=== PATIENT | female | born 1935 | race Caucasian/White ===

== ENCOUNTER 2024-01-19 05:06 | Emergency (ER) | payer MEDICARE, SELFPAY ==
--- NOTE | ~2024-01-19 | CT_ITS ---
CT head without contrast Indication: Head injury Technique: Serial scans were obtained through the brain without the administration of contrast. Dose reduction technique was used on this scan by utilizing automated exposure control and iterative recon struction technique. The dose-length product (DLP) was 681.00 mGy-cm. Findings: There is no evidence of intracranial hemorrhage, mass lesion, or acute infarct. The ventri cles and subarachnoid spaces are dilated, consistent with mild atrophy. 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 There is no evidence of edema, mass effect or midline shift. Right max illary sinus disease present. The remaining visualized paranasal sinuses and mastoid air cells are cl ear. Impression: No intracranial hemorrhage, mass, or acute infarct. Atrophy and chronic white matter changes, as above. Reviewed, dictated and finalized at [facility]. Impression: No intracranial hemorrhage, mass, or acute infarct. Atrophy and chronic white matter changes, as above.
[2024-01-19 05:08] VITALS: BP 149/94; PULSE 107; RESP 14; TEMP 36.8; O2SAT 92
--- NOTE | 2024-01-19 05:17 | ED.FALL ---
HPI - Fall General Chief Complaint: Fall Stated Complaint: fall Time Seen by Provider: 01/19/24 05:10 History of Present Illness HPI Narrative: Patient is an 88-year-old female who presents to the emergency department this morning from [facility] due to concern for slipping out of bed. EMS report states that the fpc informed them that the patient slid out of bed and hit her head on the side of the wheelchair. Patient is denying these symptoms stating that she did not hit her head. She is currently denying any symptoms including any headaches, dizziness, blurry vision, focal weakness, numbness and tingling, neck pain. Patient is requesting to go and states that she does not need to be here. Denies any blood thinner use. No additional symptoms or concerns at this time. Related Data Home Medications Medication Instructions Recorded Confirmed No Home Medications 01/15/24 01/15/24 Review of Systems Review of Systems: All systems are reviewed and are negative unless stated otherwise in the HPI. [facility] Social History Social History Smoking status: Never smoker Exam Narrative: General: Alert, awake, afebrile, in no acute distress. HEENT: PERRL, no rhinorrhea, no post nasal drip, oropharynx clear. Cardiovascular: Regular rate and rhythm, no murmurs, rubs or gallops, no peripheral edema. Respiratory: Clear to auscultation bilaterally, no tachypnea, no wheezing, no rhonchi, no rubs, no respiratory distress. Abdomen: Soft, nontender, nondistended, no rebound, no guarding, no peritoneal signs. Musculoskeletal: No joint swelling or deformity, normal muscle tone. Back: BS No midline tenderness to palpation, thoracic, or lumbar spine positive Skin: No rashes or petechia, no signs of infection. Neurological: Alert and oriented to person, place, and time. Follows all commands. No focal deficits, speech is clear and fluent. Course Vital Signs Vital signs: Vital Signs Temperature 98.2 F 01/19/24 05:08 Pulse Rate 107 H 01/19/24 05:08 Respiratory Rate 14 01/19/24 05:08 Blood Pressure 149/94 H 01/19/24 05:08 Pulse Oximetry 92 01/19/24 05:08 Oxygen Delivery Room Air 01/19/24 05:08 Temperature 98.2 F 01/19/24 05:08 Pulse Rate 107 H 01/19/24 05:08 Respiratory Rate 14 01/19/24 05:08 Blood Pressure 149/94 H 01/19/24 05:08 Pulse Oximetry 92 01/19/24 05:08 Oxygen Delivery Room Air 01/19/24 05:08 MDM - Fall MDM Narrative Medical decision making narrative: The patient was evaluated by myself in the emergency department. History is obtained from patient who is an independent historian along with EMS report and physical exam was performed. External medical records were reviewed at this time. Imaging studies obtained included CT brain without IV contrast which was independently interpreted by me revealing no acute intracranial process, which is pending final radiology interpretation. Differential diagnosis considerations include fractures, dislocations, intracranial hemorrhage. Comorbidities impacting this visit include none. I have evaluated and discussed social determinants of health with the patient that could potentially impact subsequent diagnosis and treatment plans. On repeat assessment of the patient, reevaluation revealed that the patient is doing well and is in no acute distress. Patient symptoms have remained stable since she arrived to our emergency department. Repeat vital signs were all reviewed and noted to be stable. Differential diagnosis and treatment plan were discussed with the patient at bedside. Patient agrees with discussion and after shared medical decision making agrees with discharge. All questions were answered to the patient's satisfaction. Patient will follow up with her PCP in 3-5 days. Patient was provided with strict return precautions and instructed to return to the emergency depart
--- NOTE | 2024-01-19 07:14 | PC.NURSE ---
This RN tried calling [facility] three times with no success. pt to be transported back via EMS.
[2024-01-19 07:29] VITALS: BP 144/87; PULSE 89; RESP 19; O2SAT 96
== END 2024-01-19 08:29 ==
PROVIDERS: Emergency Provider Emergency Medicine; PCP Family Medicine
DX: S09.90XA Unspecified injury of head, initial encounter (principal); W06.XXXA Fall from bed, initial encounter
CPT/HCPCS: 70450; 99284

== ENCOUNTER 2024-10-24 22:22 | Emergency (ER) | payer MEDICARE, SELFPAY ==
--- NOTE | ~2024-10-24 | CT_ITS ---
History: Bilateral lower extremity paresthesias and subjective slurred speech PROCEDURE: CT lumbar spine without intravenous contrast. COMPARISON: None TECHNIQUE: Multiple contiguous axial images of the lumbar spine were performed without the administration of int ravenous contrast. DLP: 239 mGy-cm FINDINGS: 14 degrees of levoscoliotic curvature of the lumbar spine is identified. Degenerative disease is identified at the level of L1/L2 with osteophyte formation, disc space narrow ing, endplate changes and facet arthropathy. Grade 1 anterolisthesis of L4 onto L5. Remainder of the intervertebral disc spaces are unremarkable. No acute compression fractures are present. No soft tissue abnormality is noted. Impression: Degenerative disease with altered alignment, without acute compression fracture, as detailed above. Reviewed, dictated and finalized at location A. Impression: Degenerative disease with altered alignment, without acute compression fracture , as detailed above.
--- NOTE | ~2024-10-24 | CT_ITS ---
History: Fall PROCEDURE: CT head without contrast. COMPARISON: 01/19/2024 TECHNIQUE: Axial imaging of the head performed from the skull base to the vertex without IV contrast. Sagittal a nd coronal reformations obtained. DLP: 681 mGy-cm FINDINGS: The ventricles are enlarged. The dilatation of the ventricles is proportional to the degree of sulcal prominence, not uncommon in the senescent brain. Decreased attenuation is identified within the periventricular white matter, likely secondary to micr ovascular ischemic disease, in a patient of this age. There is no mass, mass effect or midline shift. There is no abnormal extra-axial fluid collection or intracranial hemorrhage. Dense opacification of the maxillary sinus with possible heterotopic ossification in the base of the maxillary sinus. Remaining paranasal sinuses are clear. The mastoid air cells are well aerated. No acute displaced fractures within the overlying cranium. Impression: No acute intracranial hemorrhage or suspicious mass effect. Reviewed, dictated and finalized at location A. Impression: No acute intracranial hemorrhage or suspicious mass effect.
--- NOTE | ~2024-10-24 | XR_ITS ---
HISTORY: fell out of bed/NO HIP OR PELVIS COMPLAINTS COMPARISON: None TECHNIQUE: 2 views of the pelvis were performed FINDINGS: Diffuse bony demineralization is noted. Increased attenuation within the stoma consistent with acute blood products, as the plain film evalua tion of the pelvis was performed long before the contrast enhanced CT. Significant degenerative disease within the visualized portion of the lumbar spine. Superior lateral joint space narrowing and sclerosis is identified within the bilateral femoral aceta bular joint spaces. Joint space narrowing and sclerosis is present within the pubic symphysis. No acute fracture or dislocation is appreciated. Vascular calcifications are also noted. IMPRESSION: Increased attenuation within the stoma consistent with acute blood products as the plain film evaluation of the pelvis was performed hours before the contrast enhanced CT. Degenerative disease, without acute fracture or dislocation, as detailed above. Reviewed, dictated and finalized at location A.
--- NOTE | ~2024-10-24 | CT_ITS ---
History: Fall PROCEDURE: CT cervical spine without intravenous contrast. COMPARISON: None TECHNIQUE: Multiple contiguous axial images of the cervical spine were performed without the administration of i ntravenous contrast. DLP: 115 mGy-cm FINDINGS: Significant kyphosis is identified. In addition, severe degenerative disease is identified at the level of C1/C2 with bony erosion and cy stic resorption. Ankylosis of multiple levels are also detected as well as osteophyte formation, disc space narrowing and endplate changes. No acute displaced fractures are present. Biapical scarring, right greater than left. No soft tissue abnormality is appreciated. The airway is patent. Impression: Severe degenerative disease, as detailed above, without acute displaced fracture. Reviewed, dictated and finalized at location A. Impression: Severe degenerative disease, as detailed above, without acute displaced fractur e.
--- NOTE | ~2024-10-24 | CT_ITS ---
The CLINICAL INDICATION: Bleeding from stoma COMPARISON: None. TECHNIQUE: Multiple contiguous axial images of the abdomen and pelvis were performed following the ad ministration of with 100 mL Omnipaque-350 intravenous contrast The dose-length product (DLP) was 288.99 mGy-cm. Automated exposure control and iterative reconstruction technique were employed. Examination is markedly limited by a significant amount of motion artifact rendering evaluation of th e upper abdomen limited. FINDINGS/OBSERVATIONS: Visualized lower thorax: Coarse interstitial lung markings detected within the bilateral lung bases, likely chronic. The heart is enlarged, without pericardial effusion. Liver: The liver demonstrates homogeneous enhancement and is not enlarged. Gallbladder and biliary system: What is thought to represent the gallbladder is only minimally distended, and otherwise unremarkable. Pancreas: Limited evaluation secondary to motion artifact. Spleen: The spleen enhances homogeneously and is not enlarged. Kidneys: The bilateral kidneys enhance symmetrically without hydronephrosis or renal calculi. Adrenal glands: Unremarkable. Gastrointestinal tract: Stoma within the left lower abdomen. Although not a CTA examination, active extravasation is visualized within the stoma, presumed to orig inate within a branch of the left gonadal vein. Fecal stasis and scattered mural thickening is identified within the remainder of the colon. Appendix: The air-filled appendix is of normal caliber (axial series, images 89 through 112) Vasculature: Although not a dedicated CTA examination, active extravasation is visualized supplying the stoma, pre sumed to originate within a branch of the left gonadal vein. Only trace calcified atherosclerotic disease is present. Lymph nodes: No pathologically enlarged or morphologically suspicious lymph nodes within the retroperitoneum or at the root of the mesentery. Pelvic structures: The bladder is markedly distended, and otherwise unremarkable. The uterus is anteverted and anteflexed and contains bulky calcifications suggesting prior fibroid di sease. Body wall and musculoskeletal: Age-appropriate degenerative disease within the lower thoracic and lumbosacral spines. Stoma within the left lower abdomen. IMPRESSION: Findings consistent with active extravasation supplying the stoma presumed to originate within a bran ch of the left gonadal vein. Scattered mural thickening and retained fecal contents is also noted. . Reviewed, dictated and finalized at location A. IMPRESSION: Findings consistent with active extravasation supplying the stoma presumed to o riginate within a branch of the left gonadal vein. Scattered mural thickening and retained fecal contents is also noted. .
[2024-10-24 22:22] VITALS: BP 117/79; PULSE 70; RESP 16; O2SAT 99
[2024-10-24] MEDS: ONDANSETRON HCL ODT 4 MG TABLET PO (22:40)
--- OUTSIDE RECORDS SUMMARY | 2024-10-24 23:07 | XMS_ITS | Clinical Summary ---
Author Organization [facility] Address [address] [place] [address] Care Team Providers Care Store Specialist Name Role Phone Chon Gaona Primary Care Provider [phone] Allergies Active Allergy Reactions Criticality Noted Date Comments Baclofen Hallucinations 08/02/2018 Ibuprofen GI Upset 08/02/2018 Levofloxacin Other (see comment) 08/21/2018 weakness Nitrofurantoin Hives Medium 07/26/2023 Sulfa Antibiotics Hives 08/02/2018 Medications aspirin EC (ASPIRIN EC) 81 MG tablet Take 1 tablet (81 mg total) by mouth daily. Active montelukast 10 MG tablet Take 1 tablet (10 mg total) by mouth nightly at bedtime. Active metoprolol tartrate 50 MG tablet Take 1 tablet (50 mg total) by mouth 2 (two) times daily. Active fluticasone propionate 50 MCG/ACT nasal spray 1 spray by Each Nostril route nightly at bedtime. Active polyvinyl alcohol-povido ne (MURINE TEARS FOR DRY EYES) 5-6 MG/ML ophthalmic solution Place 1 drop into both eyes as needed for Dry eyes. Active atorvastatin (LIPITOR) 40 MG tablet Take 1 tablet (40 mg total) by mouth daily. 30 tablet 4 01/07/20 25 Active ferrous sulfate EC 324 (65 Fe) MG tablet Take 1 tablet (324 mg total) by mouth every other day. 30 tablet 4 Active metoclopramide (REGLAN) 5 MG tablet Take 1 tablet (5 mg total) by mouth 3 (three) times daily before meals. 90 tablet 4 Active potassium chloride CR (KLOR-CON M) 20 MEQ tablet Take 1 tablet (20 mEq total) by mouth daily. Active buPROPion SR (WELLBUTRIN SR) 150 MG 12 hr tablet Take 1 tablet (150 mg total) by mouth daily. Active docusate sodium (COLACE) 100 MG capsule Take 1 capsule (100 mg total) by mouth daily as needed for Constipation. Active acetaminophen (TYLENOL) 500 MG tablet Take 1 tablet (500 mg total) by mouth every 8 (eight) hours as needed for Pain. Active pantoprazole EC (PROTONIX) 40 MG tablet Take 1 tablet (40 mg total) by mouth daily. Active vitamin B-12 (CYANOCOBALAMI N) (CYANOCOBALAMI N) 1000 mcg tablet Take 1 tablet (1,000 mcg total) by mouth daily. Active polyethylene glycol (GLYCOLAX) packet Take 240 mLs (17 g total) by mouth daily as needed for Constipation. Dissolve powder in 240 mL water Active DULoxetine (CYMBALTA) 60 MG capsule Take 1 capsule (60 mg total) by mouth daily. 5 Active amLODIPine (NORVASC) 5 MG tablet Take 2 tablets (10 mg total) by mouth daily. 5 Active phenazopyridin e (PYRIDIUM) 100 MG tablet Take 1 tablet (100 mg total) by mouth 3 (three) times daily as needed for Pain. 5 Active nystatin (MYCOSTATIN) cream Apply topically as needed. 5 Active probiotic (FLORAJEN3) Cap capsule Take 1 capsule by mouth 2 (two) times daily with meals. Active HYDROcodone-ac etaminophen (NORCO) 10-325 MG tabletIndicati ons:Chronic Pain Take 1 tablet by mouth every 6 (six) hours as needed for Pain. Indications: Chronic Pain 10 tablet 5 10/13/19 25 Discontinue d(Stop Taking at Discharge) HYDROcodone-ac etaminophen (NORCO) 5-325 MG tabletIndicati ons:Acute Pain < 7 Day Supply Take 1 tablet by mouth every 8 (eight) hours as needed for Pain. Indications: Acute Pain < 7 Day Supply 9 tablet 5 10/18/19 25 meropenem 1 g in sodium chloride 0.9 % SOLN 70 mL Inject 1 g into the vein every 12 (twelve) hours for 7 days. 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 Subsequent MRI of the pancreas shows a 2.4 x 1.1 tubular cystic lesion without clear communication with the pancreatic duct. Differential includes IPMN versus cystic neoplasm. -recommend EUS for further evaluation, we will refer to [facility] Pure hypercholesterolemia 05/02/2022 Spinal pain 05/28/2019 Colitis 01/06/2019 Overview (12/31/2023): Last Assessment & Plan: Patient was admitted to the hospital in November of 2021 for abdominal pain, nausea, vomiting, and diarrhea. CT scan without contrast November 2021 notable for thickening of the wall of the descending and sigmoid colon with inflammatory stranding in the surrounding fat suggesting inflammatory or infectious colitis. Patient was also noted to have a UTI. She was treated with antibiotics. Patient underwent colonoscopy by Dr. 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 Colonoscopy by Dr. Irizarry December 2018 with normal distal 5 cm of the terminal ileum, moderate diverticulosis with a 5 cm stricture from 20-25 cm, dilated with a 12-15 cm balloon inflated to a maximum of 13.5 mm, otherwise unremarkable. -colonoscopy was scheduled however patient did not tolerate prep and canceled -discussed colonoscopy, both patient and patient's daughter who accompanied her in clinic Leslie deferred at this time -we will consider flexible sigmoidoscopy in the future Abdominal pain 01/05/2019 Sepsis (CMS/HCC [facility]) 08/22/2018 Intractable pain 08/02/2018 Encounters Date Type Department Care Team Description 10/15/2024 12:15 PM CDT - 10/15/2024 11:59 PM CDT Hospital Encounter [facility] [address] [place] [address] Mariah Brown MD Discharge Disposition: Home or Self Care (Routine Discharge) 10/15/2024 Travel 10/14/2024 Telephone [facility] 3 [facility], [address] [address] Maryann Howard, ACCOUNT OFFICER Question 10/13/2024 1:40 PM CDT [facility] [place] [address] Mariah Brown MD UTI 09/23/2024 12:09 PM CDT Anesthesia Event [facility] [place] [address] Candice De Jesus MD 09/23/2024 11:25 AM CDT - 09/23/2024 3:20 PM CDT Surgery [facility] [place] [address] Washington Ugalde MD SIGMOID COLECTOMY WITH COLOSTOMY 09/22/2024 11:59 PM CDT Anesthesia Event [facility] [place] [address] Jorge Guillen MD 09/14/2024 1:21 PM CDT - 10/12/2024 3:50 PM CDT Hospital Encounter [facility]urg [address] [place] [address] Dao Rojas MD Jumean, Khaled, MD Conti, LETICIA Larose, Hope Narvaez, Violet Watson, RUCHI Calvo, Felicitas Boykin, RUCHI Louis, Katie Boykin PA-C Abnormal Lab Results; Urinary Symptoms Discharge Disposition: Assisted Facility 09/14/2024 Travel 09/09/2024 Telephone [facility] [address] [place] [address] Nubia Arce, critical care nurse specialist (Swing bed referral to [facility] from [facility]/) 09/02/2024 7:45 PM CDT - 09/10/2024 11:55 AM CDT Hospital Encounter [facility] [address] [place] [address] Jv Gusman MD Jerome, Sonny Campuzano MD,PHD Donavan, MD Laura Guzman, MD Wang Leal, LETICIA Larose, TANNER Alcala Fall Discharge Disposition: Assisted Facility 09/02/2024 Travel from Last 3 Months Immunizations Immunization Administration Dates Next Due Afluria 36 MONTHS+ (Prefilled Syringe IIV4) 12/30 Fluzone High Dose - >Age 65 (Prefilled Syringe) 02/26/2018,02/27/2016 Influenza Adult (Generic) 12/27/2016 MODERNA COVID-19 (12+) MRNA, LNP-S, PF, 100 MCG/ 0.5 ML DOSE 05/25/2020,04/27/2020 Family History Relation Status Comments Father Mother Social History Tobacco Use Types Packs/Day Years Used Date Smoking Tobacco: Never Smokeless Tobacco: Never Tobacco Cessation:Counseling Given: No Alcohol Use Standard Drinks/Week Comments No 0 (1 standard drink = 0.6 oz pur e alcohol) [facility] Utilities Answer Date Recorded In the past 12 months has e electric, gas, oil, or water company threatened to shut off services in your home? No 09/14/2024 Humiliation, Afraid, Rape, and Kick questionnair e Answer Date Recorded Within the last year, have y ou been afraid of your partner or ex-partner? No 09/14/2024 Within the last year, have y ou been humiliated or emotionally abused in other ways by your partner or ex-partner? No Within the last year, have y ou been kicked, hit, slapped, or otherwise physically hurt by your partner or ex-partner? No 09/14/2024 Within the last year, have y ou been raped or forced to have any kind of sexual activity by your partner or ex-partner? No 09/14/2024 AUDIT-C Answer Date Recorded Frequency of Alcohol Consumption Never 08/02/2018 Average Number of Drinks Not on file 019 Frequency of Binge Drinking Not on file 06/2018 Overall Financial Resource Strain (CARDIA) Answe r Date Recorded How hard is it for you to pa y for the very basics like food, housing, medical care, and heating? Not hard at all 09/14/2024 PHQ-2 Answer Date Recorded Patient Health Questionnaire-2 Score 0 10/13/2024 Hunger Vital Sign Answer Date Recorded Within the past 12 months, y ou worried that your food would run out before you got the money to buy more. Never true 09/15/19 25 Within the past 12 months, t he food you bought just didn't last and you didn't have money to get more. Never true 09/14/2024 PRAPARE - Transportation Answer Date Re corded In the past 12 months, has l ack of transportation kept you from medical appointments or from getting medications? No 08/30 In the past 12 months, has l ack of transportation kept you from meetings, work, or from getting things needed for daily living? No 09/14/2024 Housing Stability Vital Sign Answer Juan Francisco e Recorded In the last 12 months, was t here a time when you were not able to pay the mortgage or rent on time? No 09/14/2024 In the past 12 months, how m any times have you moved where you were living? 1 09/14/2024 At any time in the past 12 m [facility], were you homeless or living in a long-term (including now)? No 09/14/2024 Comments No Sex and Gender Information Value Date Recorded Sex Assigned at Female 09/03/2024 3:54 PM CDT Legal Sex Female 7:00 PM CDT Gender Identity Female 09/03/2024 3:54 PM CDT Sexual Orientation Not on file Last Filed Vital Signs Vital Sign Reading Time Taken Comments Blood Pressure 139/61 10/12/2024 3:21 PM CDT Pulse 61 10/12/2024 3:21 PM CDT Temperature 36.5 C (97.7 F) 10/12/2024 3:21 PM CDT Respiratory Rate 15 10/12/2024 3:21 PM CDT Oxygen Saturation 99% 10/12/2024 3:21 PM CDT Inhaled Oxygen Concentration - - Weight 62 kg (136 lb 11 oz) 10/08/2024 3:58 AM C DT Height 149.9 cm (4' 11) 09/14/2024 1:30 PM CDT Body Mass Index 27.61 09/14/2024 1:30 PM CDT Plan of Treatment Health Maintenance Due Date Last Done Comments DTaP, Tdap and Td Vaccines ( 1 - Tdap) 10/22/1954 Pneumococcal Vaccine: 50+ Years (1 of 1 - PCV) 1986 Zoster Vaccines (1 of 2) 1986 Annual Medicare Wellness Visit 2001 RSV Immunization or 60+ Years (1 - 1-dose 75+ series) 10/22/2011 COVID-19 Vaccine (3 - 2023-2 5 season) 2023 05/25/2020, 04/27/2020 PHQ-2 (Physician [place]) Completed 10/13/2024 Meningococcal B Vaccine Aged Out No l onger eligible based on patient's age to complete this topic Meningococcal Vaccine Aged Out No deborah lily eligible based on patient's age to complete this topic RSV Immunizations Under 20 Months Aged Out No longer eligible b ased on patient's age to complete this topic Goals Goal Patient Goal Type Associated Problems Recent Progress Patient-Stated? Author Discharge Patient/family verbalizes understanding regarding the need for SNF placement Lifestyle No Niecy Knox, MOR Medical Devices Implanted Type Area Milanese Knitting Machine Operator Device Identifier Shelf Expiration Date Model / Serial / Lot Barrier Seprafilm 5 X 6 - [id number] Implanted:Qty: 2 on 09/23/2024 by Washington Ugalde MD at [facility] [place] Barrier Abdomen [employer] ARTHUR - BIOSCIENCE 03/06/2026 [id number] / / [id number] Procedures Procedure Name Priority Date/Time Associated Diagnosis Comments CT ABD+PEL W CON DILMA 10/15/2024 12:4 5 PM CDT UTI (urinary tract infection) Colovesical fistula CBC W/DIFF AUTOMATED Routine 10/12/2024 4:40 AM CDT BASIC METABOLIC PANEL Routine 10/12/2024 4:40 AM CDT CBC W/DIFF AUTOMATED Routine 10/11/2024 6:20 AM CDT BASIC METABOLIC PANEL Routine 10/11/2024 6:20 AM CDT BASIC METABOLIC PANEL Routine 10/10/2024 3:50 AM CDT CBC W/DIFF AUTOMATED Routine 10/10/2024 3:50 AM CDT BASIC METABOLIC PANEL Routine 10/09/2024 4:26 AM CDT CBC W/DIFF AUTOMATED Routine 10/09/2024 4:26 AM CDT CBC W/DIFF AUTOMATED Routine 10/08/2024 5:55 AM CDT BASIC METABOLIC PANEL Routine 10/08/2024 5:55 AM CDT POCT GLUCOSE - DOCKED DEVICE Routine 10/07/2024 11:09 AM CDT CBC W/DIFF AUTOMATED Routine 10/07/2024 3:23 AM CDT BASIC METABOLIC PANEL Routine 10/07/2024 3:23 AM CDT URINE BACTERIA CULTURE Routine 10/06/2024 6:50 AM CDT HC URINALYSIS AUTO W/O MICRO Routine 10/06/2024 6:50 AM CDT CBC W/DIFF AUTOMATED Routine 10/06/2024 3:45 AM CDT BASIC METABOLIC PANEL Routine 10/06/2024 3:[address] HEAD WO CON STAT 10/05/2024 10:07 PM CDT CULTURE, BACTERIA, BLOOD Routine 10/05/2024 8:45 AM CDT PROCALCITONIN (PCT) Routine 10/05/2024 5 :50 AM CDT CBC W/DIFF AUTOMATED Routine 10/05/2024 5:50 AM CDT BASIC METABOLIC PANEL Routine 10/05/2024 5:[address] ABD+PEL W CON Today 10/04/2024 3:31 PM CDT CBC W/DIFF AUTOMATED Routine 10/04/2024 5:50 AM CDT BASIC METABOLIC PANEL Routine 10/04/2024 5:50 AM CDT CBC W/DIFF AUTOMATED Routine 10/03/2024 5:55 AM CDT BASIC METABOLIC PANEL Routine 10/03/2024 5:55 AM CDT PHOSPHORUS, INORGANIC PHOSPHATE Routine 10/02/2024 4:00 AM CDT MAGNESIUM Routine 10/02/2024 4:00 AM CDT BASIC METABOLIC PANEL Routine 10/02/2024 4:00 AM CDT CBC W/DIFF AUTOMATED Routine 10/02/2024 4:00 AM CDT BASIC METABOLIC PANEL Routine 10/01/2024 5:10 AM CDT CBC W/DIFF AUTOMATED Routine 10/01/2024 5:[address] HEAD WO CON STAT 09/30/2024 8:18 AM CDT POCT GLUCOSE - DOCKED DEVICE Routine 09/30/2024 8:06 AM CDT MAGNESIUM Routine 09/30/2024 3:25 AM CDT BASIC METABOLIC PANEL Routine 09/30/2024 3:25 AM CDT CBC W/DIFF AUTOMATED Routine 09/30/2024 3:25 AM CDT COMPREHENSIVE METABOLIC PANEL Routine 09/29/2024 4:24 AM CDT CBC W/DIFF AUTOMATED Routine 09/29/2024 4:[address] CYSTOGRAM STAT 09/28/2024 12:22 PM CDT BASIC METABOLIC PANEL Routine 09/28/2024 5:50 AM CDT CBC W/DIFF AUTOMATED Routine 09/28/2024 5:50 AM CDT BASIC METABOLIC PANEL Routine 09/27/2024 5:27 AM CDT CBC W/DIFF AUTOMATED Routine 09/27/2024 5:27 AM CDT BASIC METABOLIC PANEL Routine 09/26/2024 5:14 AM CDT CBC W/DIFF AUTOMATED Routine 09/26/2024 5:14 AM CDT MAGNESIUM Routine 09/25/2024 4:26 AM CDT BASIC METABOLIC PANEL Routine 09/25/2024 4:26 AM CDT CBC W/DIFF AUTOMATED Routine 09/25/2024 4:26 AM CDT MAGNESIUM Routine 09/24/2024 4:00 AM CDT BASIC METABOLIC PANEL Routine 09/24/2024 4:00 AM CDT CBC W/DIFF AUTOMATED Routine 09/24/2024 4:00 AM CDT STONE ANALYSIS Routine 09/23/2024 12:53 PM CDT CYSTOSCOPY,INSERT URETERAL STENT 09/23/2024 12:09 PM CDT COLOVESICULAR FISTULA Case Notes SCHED WITH DR UGALDE 09/21/2024 LCS WAITING FOR UROLOGY ORDERS FROM [facility] STATED DID NOT NEED GI ASSISTANCE Special Needs DR CORNEJO 3 HOURS PART REMOVAL COLON W COLOPROC,COLOST 09/23/2024 12:09 PM CDT COLOVESICULAR FISTULA Case Notes SCHED WITH DR UGALDE 09/21/2024 LCS WAITING FOR UROLOGY ORDERS FROM [facility] STATED DID NOT NEED GI ASSISTANCE Special Needs DR CORNEJO 3 HOURS TYPE & SCREEN STAT 09/23/2024 8:17 AM CDT BASIC METABOLIC PANEL Routine 09/23/2024 8:17 AM CDT CBC W/DIFF AUTOMATED Routine 09/23/2024 8:17 AM CDT MAGNESIUM Routine 09/23/2024 8:15 AM CDT PATHOLOGY Routine 09/23/2024 12:00 AM CDT CBC W/DIFF AUTOMATED Routine 09/21/2024 4:38 AM CDT BASIC METABOLIC PANEL Routine 09/21/2024 4:38 AM CDT SED RATE, ERYTHROCYTE (ESR) Routine 09/20/2024 3:00 AM CDT C-REACTIVE PROTEIN Routine 09/20/2024 3: 00 AM CDT CBC W/DIFF AUTOMATED Routine 09/20/2024 3:00 AM CDT BASIC METABOLIC PANEL Routine 09/20/2024 3:00 AM CDT URINE BACTERIA CULTURE STAT 09/19/2024 10:12 AM CDT HC URINALYSIS AUTO W/O MICRO STAT 09/19/2024 10:12 AM CDT CBC W/DIFF AUTOMATED Routine 09/19/2024 5:53 AM CDT BASIC METABOLIC PANEL Routine 09/19/2024 5:53 AM CDT BASIC METABOLIC PANEL Routine 09/18/2024 4:12 AM CDT CBC W/DIFF AUTOMATED Routine 09/18/2024 4:12 AM CDT BASIC METABOLIC PANEL Routine 09/17/2024 6:31 AM CDT CBC W/DIFF AUTOMATED Routine 09/17/2024 6:31 AM CDT MAGNESIUM Routine 09/17/2024 6:31 AM CDT CBC W/DIFF AUTOMATED Routine 09/16/2024 6:09 AM CDT COMPREHENSIVE METABOLIC PANEL Routine 09/16/2024 6:09 AM CDT MAGNESIUM Routine 09/16/2024 6:09 AM CDT CBC W/DIFF AUTOMATED Routine 09/15/2024 4:55 AM CDT COMPREHENSIVE METABOLIC PANEL Routine 09/15/2024 4:55 AM CDT MAGNESIUM Routine 09/15/2024 4:55 AM CDT HEMOGLOBIN, GLYCOSYLATED Routine 09/15/2024 4:55 AM CDT URINE BACTERIA CULTURE STAT 09/15/2024 12:42 AM CDT HC URINALYSIS AUTO W/O MICRO STAT 09/15/2024 12:42 AM CDT ECG 12-LEAD STAT 09/14/2024 3:21 PM CDT CULTURE, BACTERIA, BLOOD Routine 09/14/2024 3:12 PM CDT CULTURE, BACTERIA, BLOOD STAT 09/14/2024 3:12 PM CDT LACTIC ACID W REFLEX (SEPSIS) STAT 09/14/2024 3:12 PM CDT XR CHEST PORTABLE STAT 09/14/2024 2:3 9 PM CDT COMPREHENSIVE METABOLIC PANEL STAT 09/14/2024 2:21 PM CDT CBC W/DIFF AUTOMATED STAT 09/14/2024 2:21 PM CDT CBC W/DIFF AUTOMATED Routine 09/09/2024 4:25 AM CDT BASIC METABOLIC PANEL Routine 09/09/2024 4:25 AM CDT CBC W/DIFF AUTOMATED Routine 09/08/2024 7:17 AM CDT BASIC METABOLIC PANEL Routine 09/08/2024 7:17 AM CDT CBC W/DIFF AUTOMATED Routine 09/07/2024 6:41 AM CDT BASIC METABOLIC PANEL Routine 09/07/2024 6:41 AM CDT BASIC METABOLIC PANEL Routine 09/06/2024 7:34 AM CDT CBC W/DIFF AUTOMATED Routine 09/06/2024 7:34 AM CDT MAGNESIUM Routine 09/05/2024 10:57 AM CDT BASIC METABOLIC PANEL Routine 09/05/2024 10:57 AM CDT CBC W/DIFF AUTOMATED Routine 09/05/2024 10:57 AM CDT BASIC METABOLIC PANEL Routine 09/04/2024 12:37 PM CDT CBC W/DIFF AUTOMATED Routine 09/04/2024 12:[address] ABD+PEL W CON STAT 09/03/2024 4:15 AM CDT XR WRIST LT MIN 3V STAT 09/03/2024 12 :47 AM CDT CULTURE, BACTERIA, BLOOD STAT 09/03/2024 12:23 AM CDT CULTURE, BACTERIA, BLOOD STAT 09/03/2024 12:23 AM CDT URINE BACTERIA CULTURE Routine 09/02/2024 10:29 PM CDT HC URINALYSIS AUTO W/O MICRO STAT 09/02/2024 10:29 PM CDT LACTIC ACID W REFLEX (SEPSIS) TIMED 09/02/2024 10:23 PM CDT XR CHEST PORTABLE STAT 09/02/2024 8:3 2 PM CDT LACTIC ACID W REFLEX (SEPSIS) STAT 09/02/2024 8:14 PM CDT COMPREHENSIVE METABOLIC PANEL STAT 09/02/2024 8:14 PM CDT CBC W/DIFF AUTOMATED STAT 09/02/2024 8:[address] CERV SPINE WO CON STAT 09/02/2024 8:[address] HEAD WO CON STAT 09/02/2024 8:12 PM CDT from Last 3 Months Results * CT ABD+PEL W CON (10/15/2024 12:45 PM CDT) Only the most recent of3 resultswithin the time period is included. Anatomical Region Laterality Modality Abdomen Computed Tomogra phy 10/16/2024 8:24 AM CDT Impressions 10/16/2024 8:32 AM CDT Impression: 1. Postsurgical changes of partial colectomy with left anterior abdominal colostomy. The small elongated fluid collection seen adjacent to the rectosigmoid stump has improved on this exam, favored improving postoperative fluid. No distinct peripherally enhancing intra-abdominal abscesses identified on today's study. 2. No distinct CT evidence of colovesical fistula on this exam. Note, sensitivity is limited without the presence of enteric contrast, either oral or rectal. 3. Left ovarian cysts are identified, the largest measuring up to 1.6 cm. No specific follow-up imaging recommended unless deemed clinically indicated. 4. Other chronic and nonemergent findings as above. Ordered By: MARIAH BROWN Interpreted By: Aditya Orr MD, 10/16/2024 8:24 AM Narrative 10/16/2024 8:32 AM CDT [address] [address] Examination: CT abdomen and pelvis with IV contrast. Clinical Information: COLOVESICAL FISTULA BETWEEN HER BLADDER AND RECTUM Comparison:CT 10/04/2024. CT cystogram 09/01/2024. Technique: IV contrast: 100 mL Isovue 370. Oral contrast: None. Technical comments: Standard technique. Dose reduction: This CT exam was performed using one or more of the following dose reduction techniques: Automated exposure control, adjustment of the mA and/or kV according to patient size, and/or use of iterative reconstruction technique. Findings: Motion artifact degrades image quality and limits the sensitivity of this exam. LOWER CHEST The visualized heart appears mildly prominent in size. Bibasilar atelectasis. No pleural effusion. UPPER ABDOMEN Liver and bile ducts: No focal liver lesion. Portal vein and hepatic veins are patent. No biliary dilatation. Gallbladder: Decompressed. Pancreas: Redemonstrated pancreatic cysts, unchanged from recent prior. Spleen: Normal. RETROPERITONEUM Adrenals: Normal. Kidneys: Enhance symmetrically with no solid mass or hydronephrosis. Unchanged left upper pole renal cyst, favored a benign simple cyst requiring no specific follow-up imaging unless clinically indicated. Lymph nodes: No lymphadenopathy in the abdomen or pelvis. BOWEL AND PERITONEUM Bowel: No evidence of acute small bowel obstruction. Postsurgical changes of partial colectomy with Frost's pouch and left anterior abdominal colostomy, similar to prior. On defined stool density is seen within the large bowel. The small elongated fluid collection seen adjacent to the rectosigmoid stump has improved on this exam, favored improving postoperative fluid. No distinct peripherally enhancing intra-abdominal abscesses identified on today's study. No distinct CT evidence of colovesical fistula on this exam. Note, sensitivity is limited without the presence of enteric contrast, either oral or rectal. No bladder wall thickening or air seen within the bladder lumen. Free air or fluid: No significant free fluid noted. VASCULATURE The abdominal aorta appears normal in caliber. PELVIS Left ovarian cysts are identified, the largest measuring up to 1.6 cm. BONES/SOFT TISSUES Multilevel spondylosis. Degenerative grade 1 anterolisthesis of L4 on L5. No acute osseous abnormality. Procedure Note Aditya Orr MD - 10/16/[address] [address] Examination: CT abdomen and pelvis with IV contrast. Clinical Information: COLOVESICAL FISTULA BETWEEN HER BLADDER AND RECTUM Comparison:CT 10/04/2024. CT cystogram 09/01/2024. Technique: IV contrast: 100 mL Isovue 370. Oral contrast: None. Technical comments: Standard technique. Dose reduction: This CT exam was performed using one or more of thefollowing dose reduction techniques: Automated exposure control,adjustment of the mA and/or kV according to patient size, and/or use ofiterative reconstruction technique. Findings: Motion artifact degrades image quality and limits the sensitivity of thisexam. LOWER CHEST The visualized heart appears mildly prominent in size. Bibasilaratelectasis. No pleural effusion. UPPER ABDOMEN Liver and bile ducts: No focal liver lesion. Portal vein and hepaticveins are patent. No biliary dilatation. Gallbladder: Decompressed. Pancreas: Redemonstrated pancreatic cysts, unchanged from recent prior. Spleen: Normal. RETROPERITONEUM Adrenals: Normal. Kidneys: Enhance symmetrically with no solid mass or hydronephrosis.Unchanged left upper pole renal cyst, favored a benign simple cystrequiring no specific follow- up imaging unless clinically indicated. Lymph nodes: No lymphadenopathy in the abdomen or pelvis. BOWEL AND PERITONEUM Bowel: No evidence of acute small bowel obstruction. Postsurgical changesof partial colectomy with Frost's pouch and left anterior abdominalcolostomy, similar to prior. On defined stool density is seen within thelarge bowel. The small elongated fluid collection seen adjacent to therectosigmoid stump has improved on this exam, favored improvingpostoperative fluid. No distinct peripherally enhancing intra-abdominalabscesses identified on today's study. No distinct CT evidence ofcolovesical fistula on this exam. Note, sensitivity is limited without thepresence of enteric contrast, either oral or rectal. No bladder wallthickening or air seen within the bladder lumen. Free air or fluid: No significant free fluid noted. VASCULATURE The abdominal aorta appears normal in caliber. PELVIS Left ovarian cysts are identified, the largest measuring up to 1.6 cm. BONES/SOFT TISSUES Multilevel spondylosis. Degenerative grade 1 anterolisthesis of L4 on L5.No acute osseous abnormality. Impression: 1. Postsurgical changes of partial colectomy with left anterior abdominalcolostomy. The small elongated fluid collection seen adjacent to therectosigmoid stump has improved on this exam, favored improvingpostoperative fluid. No distinct peripherally enhancing intra-abdominalabscesses identified on today's study. 2. No distinct CT evidence of colovesical fistula on this exam. Note,sensitivity is limited without the presence of enteric contrast, eitheroral or rectal. 3. Left ovarian cysts are identified, the largest measuring up to 1.6 cm.No specific follow-up imaging recommended unless deemed clinicallyindicated. 4. Other chronic and nonemergent findings as above. Ordered By: MARIAH BROWN Interpreted By: Aditya Orr MD, 10/16/2024 8:24 AM us Mariah Brown MD CT Final Result * (ABNORMAL) BASIC METABOLIC PANEL (10/12/2024 4:40 AM CDT) Only the most recent of30 resultswithin the time period is included. GLUCOSE 89 70 - 99 MG/DL 10/12/2024 5:30 AM CDT [facility] BUN 14 7 - 18 MG/DL 10/12/2024 5:30 AM CDT [facility] CREATININE S/P/B 0.62 0.55 - 1.02 MG/DL 10/12/2024 5:30 AM CDT [facility] SODIUM S/P/B 137 136 - 145 MMOL/L 10/12/2024 5:30 AM CDT [facility] POTASSIUM S/P/B 4.0 3.5 - 5.1 MMOL/L 10/12/2024 5:30 AM CDT [facility] CHLORIDE S/P/B 108 97 - 115 MMOL/L 10/12/2024 5:30 AM CDT [facility] CO2 26.2 21 - 32 MMOL/L 10/12/2024 5:30 AM CDT [facility] CALCIUM S/P/B 8.6 8.5 - 10.1 MG/DL 10/12/2024 5:30 AM CDT [facility] ANION GAP 2.8 2 - 10 MMOL/L 10/12/2024 5:30 AM CDT [facility] BUN CREATININE RATIO 22.4 6 - 26 10/12/2024 5:30 AM CDT [facility] GFR ESTIMATE 86(L) >90 ML/MIN/1.7 3 M2 10/12/2024 5:30 AM CDT [facility] Comment: NOTE: eGFR is not calculated for patients <18 years of age or gender unknown. This is an estimated GFR calculation using the new CKD EPI creatinine equation without race and so does not require a correction factor for race. This estimated GFR should not be used for calculating drug doses. 10/12/2024 4:40 AM CDT [facility] Final Result [facility] [address] [place] [address], [place] [phone] * (ABNORMAL) CBC W/DIFF AUTOMATED (10/12/2024 4:40 AM CDT) Only the most recent of35 resultswithin the time period is included. WBC 10.48 4.5 - 11.0 x10'3/uL 10/12/2024 5:04 AM CDT [facility] RBC 3.32(L) 4.20 - 5.40 x10'6/uL 10/12/2024 5:04 AM CDT [facility] HGB 10.3(L) 12.0 - 16.0 G/DL 10/12/2024 5:04 AM CDT [facility] HCT 31.3(L) 38.0 - 48.0 % 10/12/2024 5:04 AM CDT [facility] MCV 94.3 81.0 - 99.0 FL 10/12/2024 5:04 AM CDT [facility] MCH 31.0 27.0 - 31.0 PG 10/12/2024 5:04 AM CDT [facility] MCHC 32.9 32.0 - 36.0 G/DL 10/12/2024 5:04 AM CDT [facility] RDW 14.7(H) 11.5 - 14.5 % 10/12/2024 5:04 AM CDT [facility] PLT 520(H) 130 - 400 x10'3/uL 10/12/2024 5:04 AM CDT [facility] MPV 8.9(L) 9.3 - 12.2 FL 10/12/2024 5:04 AM CDT [facility] DIFFERENTIAL TYPE AUTOMATED DIFFERENTIAL 10/12/2024 5:04 AM CDT [facility] NEUTROPHILS % 48.0 % 10/12/2024 5:04 AM CDT [facility] LYMPHOCYTES % 25.9 % 10/12/2024 5:04 AM CDT [facility] MONOCYTES % 11.8 % 10/12/2024 5:04 AM CDT [facility] EOSINOPHILS 11.6 % 10/12/2024 5:04 AM CDT [facility] BASOPHILS 1.1 % 10/12/2024 5:04 AM CDT [facility] IMMATURE GRANS % 1.6 % 10/13/19 5:04 AM CDT [facility] ABS. NEUTROPHILS 5.02 1.80 - 7.70 x10'3/uL 10/12/2024 5:04 AM CDT [facility] ABS. LYMPHOCYTES 2.71 1.00 - 4.80 x10'3/uL 10/12/2024 5:04 AM CDT [facility] ABS. MONOCYTES 1.24(H) 0.24 - 0.86 x10'3/uL 10/12/2024 5:04 AM CDT [facility] ABS. EOSINOPHILS 1.22(H) 0.04 - 0.36 x10'3/uL 10/12/2024 5:04 AM CDT [facility] ABS. BASOPHILS 0.12(H) 0.01 - 0.08 x10'3/uL 10/12/2024 5:04 AM CDT [facility] ABS. IMMATURE GRANULOCYTES 0.17 0.00 - 0.49 x10'3/uL 10/12/2024 5:04 AM CDT [facility] 10/12/2024 4:40 AM CDT [facility] Final Result Performing Organization Address City/[facility]/ZIP Co de Phone Number [facility] [address] [place] [address], [place] [phone] * (ABNORMAL) POCT glucose (10/07/2024 11:09 AM CDT) Only the most recent of2 resultswithin the time period is included. [facility] Signature GLUCOSE POC 117(H) 70 - 99 mg/dL 10/07/2024 11:21 AM CDT [facility] 10/07/2024 11:0 9 AM CDT [facility] POCT ORDERABLES - DEVICE Final Result [facility] [address] [place] [address], [place] [phone] * (ABNORMAL) URINALYSIS (10/06/2024 6:50 AM CDT) Only the most recent of4 resultswithin the time period is included. SPECIMEN TYPE URINE CLEAN CATCH 10/06/2024 7:00 AM T [facility] COLOR (U) YELLOW 10/06/2024 8:02 AM T [facility] TRANSPARENCY TURBID 10/06/2024 8:02 AM T [facility] SPECIFIC GRAVITY (U) 1.030 1.001 - 1.030 10/06/2024 8:02 AM T [facility] U PH 8.5 5.0 - 9.0 10/06/2024 8:02 AM T [facility] LEUKOCYTES (U) 500(A) NEGATIVE 10/06/2024 8:02 AM T [facility] NITRITES NEGATIVE NEGATIVE 10/06/2024 8:02 AM T [facility] PROTEIN RANDOM (U) 50(H) <30 MG/DL 10/06/2024 8:02 AM T [facility] GLUCOSE (U) NORMAL NORMAL MG/DL 10/06/2024 8:02 AM T [facility] KETONES MG/DL (U) NEGATIVE NEGATIVE MG/DL 10/06/2024 8:[address] [facility] UROBILINOGEN NORMAL NORMAL MG/DL 10/06/2024 8:02 AM T [facility] BILIRUBIN (U) NEGATIVE NEGATIVE MG/DL 10/06/2024 8:02 AM T [facility] BLOOD (U) NEGATIVE NEGATIVE 10/06/2024 8:[address] [facility] WBC/HPF >100(H) <6 /HPF 10/06/2024 8:02 AM T [facility] RBC/HPF 30(H) <6 /HPF 10/06/2024 8:02 AM CDT [facility] SQUAMOUS EPITHELIALS RARE /HPF 10/06/2024 8:02 AM CDT [facility] URINE SPECIMEN OBTAINED BY CLEAN CATCH PROCEDURE / Unknown 10/06/2024 6:50 AM CDT [facility] URINE ORDERABLES Final Result [facility] [address] [place] [address], [place] [phone] * URINE BACTERIA CULTURE (10/06/2024 6:50 AM CDT) Only the most recent of4 resultswithin the time period is included. SPEC DESCRIPTION URINE CLEAN CATCH 10/06/2024 12:34 PM CDT [facility] SPECIAL REQUESTS NO SPECIAL REQUEST 10/06/2024 12:34 PM CDT [facility] CULTURE RESULT POLYMICROBIAL GROWTH CONSISTENT WITH NORMAL GENITAL SATINDER. SUSCEPTIBILITIES NOT ROUTINELY PERFORMED. 10/07/2024 7:53 AM CDT [facility] URINE SPECIMEN OBTAINED BY CLEAN CATCH PROCEDURE / Unknown 10/06/2024 6:50 AM CDT 10/06/2024 12:40 PM CDT [facility] MICROBIOLOGY - GENERAL ORDERAB LES Final Result [facility] [address] [place] [address], [place] [phone] * CT HEAD WO CON (10/05/2024 10:07 PM CDT) Only the most recent of3 resultswithin the time period is included. Anatomical Region Laterality Modality Head Computed Tomogra phy 10/05/2024 10:2 2 PM CDT Impressions 10/05/2024 10:27 PM CDT IMPRESSION: 1. No evidence is seen to suggest acute intracranial hemorrhage, mass effect, or midline shift. 2. 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 3. Inflammatory changes in the maxillary sinuses as above with an air-fluid level on the left, which could reflect acute on chronic sinusitis in the appropriate clinical context. Referred By: Interpreted By: Mega Link DO, 10/05/2024 10:22 PM Narrative 10/05/2024 10:27 PM CDT [address] [address] EXAMINATION: CT HEAD WO CON EXAM DATE: 10/05/2024 10:01 PM CLINICAL HISTORY: Fall. COMPARISON: CT head 09/30/2024 and 09/02/2024. TECHNIQUE: Axial unenhanced CT of the head was performed. Coronal and sagittal reformatted images were obtained and reviewed. A radiation dose lowering technique was used for this procedure, which may include, but is not limited to, dose reduction technique, automated exposure control, the use of iterative reconstruction, ALARA (As Low As Reasonably Achievable) techniques, and Image Gently techniques. FINDINGS: No evidence is seen to suggest discrete extra-axial fluid collection. Basal cisterns are grossly patent. There is no evidence to suggest acute intracranial hemorrhage. There is no mass effect or midline shift. There is marked age-related cerebral volume loss with compensatory prominence of the ventricular system and sulci. The ventricles are otherwise appropriate in size and configuration. There are atherosclerotic calcifications of the intracranial vasculature. There are patchy foci of hypoattenuation in the supratentorial white matter that are nonspecific, but likely reflect changes of chronic ischemic microangiopathy. There are physiologic calcifications of the basal ganglia. No evidence is seen to suggest depressed calvarial fracture. There is near complete opacification of the right maxillary sinus and partial opacification of the left maxillary sinus with an air-fluid level. Hyperattenuating foci in the maxillary sinuses could reflect inspissated colloid versus fungal elements. There is mild mucosal thickening in the ethmoid air cells. The remaining visualized paranasal sinuses and mastoid air cells are clear. There have been prior lens replacements. Procedure Note Mega Link, - 10/05/[address] [address] EXAMINATION: CT HEAD WO CON EXAM DATE: 10/05/2024 10:01 PM CLINICAL HISTORY: Fall. COMPARISON: CT head 09/30/2024 and 09/02/2024. TECHNIQUE: Axial unenhanced CT of the head was performed. Coronal andsagittal reformatted images were obtained and reviewed. A radiation doselowering technique was used for this procedure, which may include, but isnot limited to, dose reduction technique, automated exposure control, theuse of iterative reconstruction, ALARA (As Low As Reasonably Achievable)techniques, and Image Gently techniques. FINDINGS: No evidence is seen to suggest discrete extra-axial fluid collection.Basal cisterns are grossly patent. There is no evidence to suggest acuteintracranial hemorrhage. There is no mass effect or midline shift. Thereis marked age-related cerebral volume loss with compensatory prominence ofthe ventricular system and sulci. The ventricles are otherwise appropriatein size and configuration. There are atherosclerotic calcifications ofthe intracranial vasculature. There are patchy foci of hypoattenuation inthe supratentorial white matter that are nonspecific, but likely reflectchanges of chronic ischemic microangiopathy. There are physiologiccalcifications of the basal ganglia. No evidence is seen to suggestdepressed calvarial fracture. There is near complete opacification of theright maxillary sinus and partial opacification of the left maxillarysinus with an air-fluid level. Hyperattenuating foci in the maxillarysinuses could reflect inspissated colloid versus fungal elements. Thereis mild mucosal thickening in the ethmoid air cells. The remainingvisualized paranasal sinuses and mastoid air cells are clear. There havebeen prior lens replacements. IMPRESSION: 1. No evidence is seen to suggest acute intracranial hemorrhage, masseffect, or midline shift. 2. Atherosclerotic calcifications of the intracranial vasculature, markedage- related cerebral volume loss, and probable changes of chronic ischemicmicroangiopathy. 3. Inflammatory changes in the maxillary sinuses as above with anair-fluid level on the left, which could reflect acute on chronicsinusitis in the appropriate clinical context. Referred By: Interpreted By: Mega Link DO, 10/05/2024 10:[address] Final Result * CULTURE BACTERIA, BLOOD (10/05/2024 8:45 AM CDT) Only the most recent of5 resultswithin the time period is included. SPEC DESCRIPTION BLOOD 10/05/2024 7:30 AM CDT [facility] SPECIAL REQUESTS NO SPECIAL REQUEST 10/05/2024 7:30 AM CDT [facility] CULTURE RESULT NO GROWTH 5 DAYS 10/10/2024 9:07 AM CDT [facility] BLOOD SPECIMEN OBTAINED FOR BLOOD CULTURE / Unknown 10/05/2024 8:45 AM CDT 10/05/2024 8:50 AM CDT [facility] MICROBIOLOGY - GENERAL ORDERAB LES Final Result Performing Organization Address [facility]/ZIP Co de Phone Number [facility] [address] [place] [address], [place] [phone] * PROCALCITONIN (PCT) (10/05/2024 5:50 AM CDT) PROCALCITONIN <0.05 0.00 - 0.49 NG/ML 10/05/2024 8:44 AM CDT [facility] 10/05/2024 5:50 AM CDT [facility] Final Result [facility] [address] [place] [address], * PHOSPHORUS, INORGANIC PHOSPHATE (10/02/2024 4:00 AM CDT) PHOSPHORUS 3.7 2.5 - 4.9 MG/DL 10/02/2024 8:03 AM CDT [facility] 10/02/2024 4:00 AM CDT [facility] Final Result Performing Organization Address [facility] Co de Phone Number [facility] [address] [place] [address], [place] [phone] * MAGNESIUM (10/02/2024 4:00 AM CDT) Only the most recent of9 resultswithin the time period is included. MAGNESIUM 2.3 1.8 - 2.4 MG/DL 10/02/2024 8:03 AM CDT [facility] 10/02/2024 4:00 AM CDT [facility] Final Result Performing Organization Address City/[facility] Co de Phone Number [facility] [address] [place] [address], [place] [phone] * (ABNORMAL) COMPREHENSIVE METABOLIC PANEL (09/29/2024 4:24 AM CDT) Only the most recent of5 resultswithin the time period is included. GLUCOSE 98 70 - 99 MG/DL 09/29/2024 5:06 AM CDT [facility] BUN 15 7 - 18 MG/DL 09/29/2024 5:06 AM CDT [facility] CREATININE S/P/B 0.83 0.55 - 1.02 MG/DL 09/29/2024 5:06 AM T [facility] SODIUM S/P/B 138 136 - 145 MMOL/L 09/29/2024 5:06 AM T [facility] POTASSIUM S/P/B 3.4(L) 3.5 - 5.1 MMOL/L 09/29/2024 5:06 AM T [facility] CHLORIDE S/P/B 106 97 - 115 MMOL/L 09/29/2024 5:06 AM T [facility] CO2 28.6 21 - 32 MMOL/L 09/29/2024 5:[address] [facility] CALCIUM S/P/B 8.4(L) 8.5 - 10.1 MG/DL 09/29/2024 5:06 AM T [facility] BILIRUBIN TOTAL S/P/B 0.8 0.2 - 1.2 MG/DL 09/29/2024 5:[address] [facility] Comment: THIS ASSAY IS NOT RECOMMENDED FOR PATIENTS UNDERGOING TREATMENT WITH ELTROMBOPAG DUE TO THE POTENTIAL FOR FALSELY ELEVATED RESULTS. TOTAL PROTEIN S/P/B 6.0(L) 6.4 - 8.2 G/DL 09/29/2024 5:06 AM T [facility] ALBUMIN S/P/B 2.2(L) 3.4 - 5.0 G/DL 09/29/2024 5:06 AM T [facility] AST 52(H) 15 - 37 U/L 09/29/2024 5:[address] [facility] ALT 41 14 - 55 U/L 09/29/2024 5:[address] [facility] ALKALINE PHOSPHATASE S/P/B 111 50 - 136 U/L 09/29/2024 5:06 AM CDT [facility] ANION GAP 3.4 2 - 10 MMOL/L 09/29/2024 5:06 AM CDT [facility] BUN CREATININE RATIO 18.0 6 - 26 09/29/2024 5:06 AM CDT [facility] A/G RATIO 0.6(L) 1.0 - 2.0 RATIO 09/29/2024 5:06 AM CDT [facility] GFR ESTIMATE 68(L) >90 ML/MIN/1.7 3 M2 09/29/2024 5:06 AM CDT [facility] Comment: NOTE: eGFR is not calculated for patients <18 years of age or gender unknown. This is an estimated GFR calculation using the new CKD EPI creatinine equation without race and so does not require a correction factor for race. This estimated GFR should not be used for calculating drug doses. 09/29/2024 4:24 AM CDT Felicitas Calvo NP LABORATORY Final Result [facility] [address] [place] [address], [place] [phone] * CT CYSTOGRAM (09/28/2024 12:22 PM CDT) Anatomical Region Laterality Modality NA Computed Tomogra phy 09/28/2024 1:46 PM CDT Impressions 09/28/2024 2:23 PM CDT IMPRESSION: 1. No evidence of bladder leak. 2. Postoperative changes of partial sigmoidectomy, left lower quadrant end colostomy, and Norris pouch creation. 3. Stool retention in the imaged portion of the ascending colon. Ordered By: PATRICIO GARZA Interpreted By: Brock Cheney MD, 09/28/2024 1:46 PM Narrative 09/28/2024 2:[address] PM [address] [address] EXAM: CT cystogram (noncontrast CT pelvis) INDICATION: History of large colovesical fistula, status post sigmoid colectomy, colostomy, bladder stone removal, Kenyon catheter placement. Evaluate for bladder leak. COMPARISON: 09/03/2024 TECHNIQUE: An initial unenhanced multidetector CT acquisition was obtained. Following intravesical administration of 50 mL Isovue-370 IV contrast, Kenyon catheter was clamped and additional acquisition was performed. Subsequently, the bladder was drained and 2 post void additional acquisitions were obtained. Multiplanar reformatted images were created and reviewed. A dose lowering technique was used for this procedure, which may include, but is not limited to, dose reduction techniques, automated exposure control, the use of a iterative reconstruction, and ALARA (as low as reasonably achievable)/image gently techniques. FINDINGS: The patient has undergone partial sigmoidectomy, left lower quadrant end colostomy, and Norris pouch creation. A postoperative drain enters via right lower quadrant and follows a curvilinear configuration along the bladder dome, rectal stump, and sigmoidectomy bed. No significant residual fluid collection is seen. A Kenyon catheter is also present. There is gas in the bladder lumen likely related to replacement or manipulation of the Kenyon. Images obtained after intravenous contrast administration and voiding show no evidence of bladder leak or extravesicular contrast deposition. Imaged portions of the bowel show no evidence of small bowel dilation. There is stool retention in the imaged portion of the ascending colon. Laparotomy incision and skin elier are noted. Rectum is partially obscured by beam hardening artifact but appears unremarkable. There is no pelvic adenopathy. Procedure Note Brock Cheney MD - 09/28/[address] [address] EXAM: CT cystogram (noncontrast CT pelvis) INDICATION: History of large colovesical fistula, status post sigmoidcolectomy, colostomy, bladder stone removal, Kenyon catheter placement.Evaluate for bladder leak. COMPARISON: 09/03/2024 TECHNIQUE: An initial unenhanced multidetector CT acquisition wasobtained. Following intravesical administration of 50 mL Isovue-370 IVcontrast, Kenyon catheter was clamped and additional acquisition wasperformed. Subsequently, the bladder was drained and 2 post voidadditional acquisitions were obtained. Multiplanar reformatted images werecreated and reviewed. A dose lowering technique was used for thisprocedure, which may include, but is not limited to, dose reductiontechniques, automated exposure control, the use of a iterativereconstruction, and ALARA (as low as reasonably achievable)/image gentlytechniques. FINDINGS: The patient has undergone partial sigmoidectomy, left lowerquadrant end colostomy, and Norris pouch creation. A postoperative drainenters via right lower quadrant and follows a curvilinear configurationalong the bladder dome, rectal stump, and sigmoidectomy bed. Nosignificant residual fluid collection is seen. A Kenyon catheter is alsopresent. There is gas in the bladder lumen likely related to replacementor manipulation of the Kenyon. Images obtained after intravenous contrastadministration and voiding show no evidence of bladder leak orextravesicular contrast deposition. Imaged portions of the bowel show no evidence of small bowel dilation.There is stool retention in the imaged portion of the ascending colon. Laparotomy incision and skin elier are noted. Rectum is partiallyobscured by beam hardening artifact but appears unremarkable. There is nopelvic adenopathy. IMPRESSION: 1. No evidence of bladder leak. 2. Postoperative changes of partial sigmoidectomy, left lower quadrantend colostomy, and Norris pouch creation. 3. Stool retention in the imaged portion of the ascending colon. Ordered By: PATRICIO GARZA Interpreted By: Brock Cheney MD, 09/28/2024 1:46 PM us Patricio Garza ACCOUNT OFFICER CT Final Result * STONE ANALYSIS (09/23/2024 12:53 PM CDT) SOURCE BLADDER STONE 09/23/2024 12:54 PM CDT [facility] STONE ANALYSIS COMPONENT REPORT 10/01/2024 12:57 AM CDT [facility] Comment: Carbonate Apatite (Dahllite) 90% Calcium Oxalate Dihydrate (Weddellite) 10% STONE ANALYSIS WEIGHT 0.031 g 10/01/2024 12:57 AM CDT [facility] Comment: Formalin, surgical gel, tape adhesive or transport media interfere with the analytical procedure. Follow up testing with the UroRisk(R) Panel is suggested for affected samples, if clinically indicated. This test was developed and its analytical performance characteristics have been determined by [facility]. It has not been cleared or approved by the FDA. This assay has been validated pursuant to the CLIA regulations and is used for clinical purposes. Test performed by [facility] [id number] [place] [id number] Business Support: Alethea Mcnamara MD,PHD,JULIANNE Test Reported by [facility], [facility], [address] [place], [place] Sameer Neil M.D., Ph.D., Director of Laboratories , CLIA [id number] STONE URINARY BLADDER CALCULUS SPECIMEN / Unknown 09/23/2024 12:53 PM CDT Washington Ugalde MD BODY FLUIDS AND STOOLS ORDERAB LES Final Result [facility] [place] [id number] [place], [place] , [place] [phone] [facility] [address] [place] [address], [place] [phone] * TYPE & SCREEN (09/23/2024 8:17 AM CDT) ABO/RH A POSITIVE 09/23/2024 9:14 AM CDT [facility] ANTIBODY SCREEN NEGATIVE 09/23/2024 9:14 AM CDT [facility] SAMPLE EXPIRATION 09/26/2024,2 359 09/23/2024 9:14 AM CDT [facility] 09/23/2024 8:17 AM CDT Isaac Piña PA-C BLOOD BANK TEST ORDERABLES Fin al Result [facility] [address] [place] [address], * Pathology (09/23/2024 12:00 AM CDT) PATHOLOGY [facility] Department of Laboratory Medicine [address] [place] [address] , extension [phone] Pathology Report Surgical Pathology Report Name: KERRI FERRARA Specimen #: [id number] Age: 7 1935 (Age: 88) Location: [id number] Sex: F Procedure Date: 09/23/2024 Hospital #: [id number] Date Received: 09/24/2024 Date Reported: 09/29/2024 Provider: WASHINGTON GONSALEZ MD Source: Sigmoid colon Clinical History: Colovesicular fistula. FINAL DIAGNOSIS: Sigmoid colon, resection: Segment of colon with diverticulitis and associated serosal inflammation and fibrosis. Tubular adenoma. There is no evidence of malignancy. Gross Description: Received in formalin, labeled with a patient label and as sigmoid colon, is the product of colectomy that measures 11.8 x 6.8 x 6.6 cm overall and displays a small amount of attached fat. The specimen appears composed of a tortuous, self adherent 27 cm unopened portion of colon. A suture nicholson the designated distal margin. The serosa is glistening, matamoros-pink to hyperemic, appears partially overlaid by adhesions, and displays a 6.2 x 4.8 cm roughened, focus that is located nearer to the proximal margin. Sectioning through this roughened focus reveals self adherence of apposing bowel loops. In this region, there is focal hemorrhage but no definitive bowel wall perforation. The colon ranges from 3.0-4.5 cm in circumference and displays glistening matamoros mucosa with focal exaggerated folds. The lumen is markedly tortuous and difficult to navigate. The specimen contains scattered diverticula. A 0.5 cm pedunculated colon polyp is also identified 5.5 cm from the distal margin. No further discrete lesions or masses are identified. Sections are submitted as follows: 1 associate financial representative distal margin 2 associate financial representative proximal margin 36 sections of the roughened serosal focus near proximal margin overlying self adherent bowel 7 entire 0.5 cm pedunculated polyp 89 random mucosa, including diverticula 10 random lymph nodes. Gross examination (when applicable) was performed at [facility], [address] [place] [address]. This case [place] [address]. Electronically Signed Out LING DCOKERY MD [facility] TISSUE COLON STRUCTURE / Unknown 09/23/2024 2:29 PM CDT us Washington Ugalde MD PATHOLOGY/CYTOLOGY ORDERABLES Final Result Performing Organization Address City/[facility]/ZIP Co de Phone Number [facility] [address] [place] [address], [id number] * (ABNORMAL) SED RATE, ERYTHROCYTE (ESR) (09/20/2024 3:00 AM CDT) ESR 34(H) <30 MM/HR 09/20/2024 8:28 AM CDT [facility] Comment:Testing performed on Biju iSMARY ANN. 09/20/2024 3:00 AM CDT us Violet Cotton ACCOUNT OFFICER LABORATORY Final Resu lt [facility] [address] [place] [address], [place] [phone] * (ABNORMAL) C-REACTIVE PROTEIN (09/20/2024 3:00 AM CDT) Pathologist [facility] C-REACTIVE PROTEIN 1.16(H) <0.29 mg/dL 09/23/2024 12:14 PM CDT [facility] 09/20/2024 3:00 AM CDT Violet Cotton ACCOUNT OFFICER LABORATORY Final Resu lt [facility] [address] [place] [address], [place] [phone] * HEMOGLOBIN, GLYCOSYLATED (09/15/2024 4:55 AM CDT) Pathologist [facility] HGB A1C 5.2 <5.7 % 09/15/2024 12:16 PM CDT [facility] Comment: ADA GUIDELINES 2010 5.7 TO 6.4% INCREASED RISK OF DIABETES > OR = 6.5% CONSISTENT WITH DIABETES ESTIMATED AVG GLUCOSE 103 mg/dL 09/15/2024 12:16 PM CDT [facility] 09/15/2024 4:55 AM CDT Lucas Sutton ACCOUNT OFFICER LABORATORY Final Result [facility] [address] [place] [address], [place] [phone] * ECG 12 lead (09/14/2024 3:21 PM CDT) 09/14/2024 3:21 PM CDT Narrative [facility] - 09/14/2024 3:[address] 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 : 1935 Requested By: DAO ROJAS Order Number: [id number] Reading MD: Measurements Intervals Willow Rate: 68 P: 253 UT: 158 QRS: -52 QRSD: 65 T: -2 QT: 386 QTc: 412 Interpretive Statements ECTOPIC ATRIAL RHYTHM POSSIBLE ANTERIOR MYOCARDIAL INFARCTION , PROBABLY OLD [30 ms Q WAVE IN V3/V4, OR R < 0.2 mV IN V4] INFERIOR MYOCARDIAL INFARCTION , OF INDETERMINATE AGE [40+ ms Q WAVE AND/OR ST/T ABNORMALITY IN II/aVF] Compared to ECG 01/01/2024 15:25:06 Ectopic atrial rhythm now present Low QRS voltage now present Sinus rhythm no longer present Other ischemic changes, not STEMI EKG Interpretation by Jv Gusman M.D. Procedure Note , Generic Conversion, - 09/14/2024 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 : 1935 Requested By: DAO ROJAS Order Number: [id number] Reading MD: Measurements Intervals Willow Rate: 68 P: 253 UT: 158 QRS: -52 QRSD: 65 T: -2 QT: 386 QTc: 412 Interpretive Statements ECTOPIC ATRIAL RHYTHM POSSIBLE ANTERIOR MYOCARDIAL INFARCTION , PROBABLY OLD [30 ms Q WAVE IN V3/V4, OR R < 0.2 mV IN V4] INFERIOR MYOCARDIAL INFARCTION , OF INDETERMINATE AGE [40+ ms Q WAVEAND/OR ST/T ABNORMALITY IN II/aVF] Compared to ECG 01/01/2024 15:25:06 Ectopic atrial rhythm now present Low QRS voltage now present Sinus rhythm no longer present Other ischemic changes, not STEMI EKG Interpretation by Jv Gusman M.D. us Dao Rojas MD ECG ORDERABLES Final Result [facility] * LACTIC ACID W REFLEX (SEPSIS) (09/14/2024 3:12 PM CDT) Only the most recent of3 resultswithin the time period is included. LACTIC ACID VENOUS 1.7 0.4 - 2.0 MMOL/L 09/14/2024 3:50 PM CDT [facility] 09/14/2024 3:12 PM CDT us Dao Rojas MD LABORATORY Final Result Performing Organization Address City/[facility]/ZIP Co de Phone Number [facility] [address] [place] [address], [place] [phone] * XR CHEST PORTABLE (09/14/2024 2:39 PM CDT) Only the most recent of2 resultswithin the time period is included. Anatomical Region Laterality Modality Chest Radiographic Rubina ging 09/14/2024 2:43 PM CDT Impressions 09/14/2024 2:54 PM CDT IMPRESSION: No acute pulmonary infiltrate or consolidation. Ordered By: DAO ROJAS Interpreted By: Levy Holland, 09/14/2024 2:43 PM Narrative 09/14/2024 2:54 PM CDT [facility] [address] [place], [place] [address] IMAGING STUDIES: XR CHEST PORTABLE DATE: 09/14/2024 2:27 PM HISTORY: sepsis 88-year-old female. Emergency department patient. Sepsis. Reported WBC of 21,000 on outside laboratory evaluation. 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 Reportedly discharged from the hospital 09/10/2024. COMPARISON: Chest portable 09/02/2024 and 12/30/2023. CT cervical spine without contrast 09/02/2024. CTA head and neck 12/30/2023. DISCUSSION: Portable AP upright view of the chest. Multiple small surgical clips over the right chest (reported history of right breast cancer with mastectomy and breast reconstruction). Heart size is within normal limits. No acute pulmonary vascular congestion. Aortic atherosclerotic calcifications. Soft tissue prominence in the right superior mediastinum/subclavian region which when correlated with 12/30/2023 CTA neck exam is consistent with superimposed vascular structures. Chronic lung interstitial prominence and lung parenchymal scarring. No acute pulmonary infiltrate, pulmonary consolidation, pleural effusion, or pneumothorax. Degenerative changes spine and shoulders. Procedure Note Levy Holland MD - 09/14/[address] [address] IMAGING STUDIES: XR CHEST PORTABLEDATE: 09/14/2024 2:27 PM HISTORY: sepsis 88-year-old female. Emergency department patient.Sepsis. Reported WBC of 21,000 on outside laboratory evaluation. Patientreportedly has a colovesical fistula with recurrent urinary tractinfections. Reportedly discharged from the hospital 09/10/2024. COMPARISON: Chest portable 09/02/2024 and 12/30/2023. CT cervical spinewithout contrast 09/02/2024. CTA head and neck 12/30/2023. DISCUSSION: Portable AP upright view of the chest. Multiple small surgical clips over the right chest (reported history ofright breast cancer with mastectomy and breast reconstruction). Heart size is within normal limits. No acute pulmonary vascularcongestion. Aortic atherosclerotic calcifications. Soft tissue prominence in the right superior mediastinum/subclavian regionwhich when correlated with 12/30/2023 CTA neck exam is consistent withsuperimposed vascular structures. Chronic lung interstitial prominence and lung parenchymal scarring. Noacute pulmonary infiltrate, pulmonary consolidation, pleural effusion, orpneumothorax. Degenerative changes spine and shoulders. IMPRESSION: No acute pulmonary infiltrate or consolidation. Ordered By: DAO ROJAS Interpreted By: Levy Holland, 09/14/2024 2:43 PM us Dao Rojas MD GENERAL IMAGING Final Result * XR WRIST LT MIN 3V (09/03/2024 12:47 AM CDT) Anatomical Region Laterality Modality Wrist Radiographic Rubina ging 09/03/2024 12:4 3 AM CDT Impressions 09/03/2024 12:45 AM CDT IMPRESSION: Buckle fracture deformity of the distal radius metaphysis. Widening of scapholunate interval. Positive ulnar variance. 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 Referred By: Interpreted By: Zan Ca MD, 09/03/2024 12:43 AM Narrative 09/03/2024 12:45 AM CDT [place] [address] Examination: XR WRIST LT MIN 3V Exam time: 09/03/2024 12:22 AM Indication: 88-year-old past medical history of dementia cognitive communication deficit presents to the emergency department after a [facility] at [facility] Comparison: None Findings: Three-view left wrist. Buckle deformity of the distal radius metaphysis. Positive ulnar variance, nonspecific. Chondrocalcinosis. Widening of scapholunate interval. Severely degenerated lateral part of the wrist and at the thumb base. Soft tissue swelling. Procedure Note Zan Ca MD - 09/03/[address] [address] Examination: XR WRIST LT MIN 3V Exam time: 09/03/2024 12:22 AM Indication: 88-year-old past medical history of dementia cognitivecommunication deficit [facility] None Findings: Three-view left wrist. Buckle deformity of the distal radiusmetaphysis. Positive ulnar variance, nonspecific. Chondrocalcinosis.Widening of scapholunate interval. Severely degenerated lateral part ofthe wrist and at the thumb base. Soft tissue swelling. IMPRESSION: Buckle fracture deformity of the distal radius metaphysis. Widening of scapholunate interval. Positive ulnar variance. 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 Referred By: Interpreted By: Zan Ca MD, 09/03/2024 12:43 AM us Sonny Park MD,PHD GENERAL IMAGING Final Resu lt * CT CERV SPINE WO CON (09/02/2024 8:12 PM CDT) Anatomical Region Laterality Modality Spine Computed Tomogra phy 09/02/2024 9:12 PM CDT Impressions 09/02/2024 9:21 PM CDT IMPRESSION: 1. No acute findings in the head or cervical spine. 2. Cerebral volume loss and chronic microvascular change. 3. Straightening and degenerative changes of the cervical spine. Referred By: Interpreted By: Art Mcneil MD, 09/02/2024 9:12 PM Narrative 09/02/2024 9:21 PM CD[address] [address] EXAMINATION: CT of the head, and cervical spine [id number] EXAM DATE/TIME: 09/02/2024 7:59 PM REASON FOR EXAM: Trauma COMPARISON: Brain MRI 12/31/2023, head CT 12/30/2023, neck CTA 12/30/2023 TECHNIQUE: Axial CT images of the brain, and cervical spine were obtained without the use of IV contrast agent. A dose lowering technique was used for this procedure, which may include, but is not limited to, dose reduction technique, automated exposure control, iterative reconstruction, ALARA (As Low As Reasonably Achievable), or Image Gently techniques. FINDINGS: Head: Cerebral volume loss. Periventricular and subcortical white matter hypodensities are seen, which likely represent sequelae of chronic microvascular change. No acute intracranial hemorrhage or CT evidence of large territory infarct. There is no evidence of hydrocephalus, extraaxial fluid collection, mass effect or midline shift. There is no acute displaced calvarial fracture. Right maxillary sinus opacification, left sphenoid sinus mucosal thickening, and bilateral ethmoid sinus opacities. The mastoid air cells are clear. Cervical spine: Straightening. Anterolisthesis of C7 on T1 measuring 2 mm. Anterolisthesis of T1 on T2 measuring 3 mm. Cervical vertebral body heights and alignment are otherwise preserved. There is no acute fracture or traumatic subluxation. No destructive osseous lytic or sclerotic lesions are seen. Degenerative changes. No significant paravertebral soft tissue abnormalities are appreciated. Visualized aspects of the lung apices are without mass or airspace consolidation. Procedure Note Art Mcneil MD - 09/02/[address] [address] EXAMINATION: CT of the head, and cervical spine [id number] EXAM DATE/TIME: 09/02/2024 7:59 PM REASON FOR EXAM: Trauma COMPARISON: Brain MRI 12/31/2023, head CT 12/30/2023, neck CTA 12/30/2023 TECHNIQUE: Axial CT images of the brain, and cervical spine were obtainedwithout the use of IV contrast agent. A dose lowering technique was usedfor this procedure, which may include, but is not limited to, dosereduction technique, automated exposure control, iterative reconstruction,ALARA (As Low As Reasonably Achievable), or Image Gently techniques. FINDINGS: Head: Cerebral volume loss. Periventricular and subcortical white matterhypodensities are seen, which likely represent sequelae of chronicmicrovascular change. No acute intracranial hemorrhage or CT evidence of large territoryinfarct. There is no evidence of hydrocephalus, extraaxial fluid collection, masseffect or midline shift. There is no acute displaced calvarial fracture. Right maxillary sinus opacification, left sphenoid sinus mucosalthickening, and bilateral ethmoid sinus opacities. The mastoid air cellsare clear. Cervical spine: Straightening. Anterolisthesis of C7 on T1 measuring 2 mm.Anterolisthesis of T1 on T2 measuring 3 mm. Cervical vertebral body heights and alignment are otherwise preserved.There is no acute fracture or traumatic subluxation. No destructiveosseous lytic or sclerotic lesions are seen. Degenerative changes. No significant paravertebral soft tissue abnormalities are appreciated. Visualized aspects of the lung apices are without mass or airspaceconsolidation. IMPRESSION: 1. No acute findings in the head or cervical spine. 2. Cerebral volume loss and chronic microvascular change. 3. Straightening and degenerative changes of the cervical spine. 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 Source: [facility]. 07/23/2024 ESBL - Extended Spectrum Bet a-lactamase Comment:09/02/24 +ESBL Urine 09/02/2024 09/02/2024 Insurance Advance Directives Documents on File Type Date Recorded Patient Sales Service Manager Expl anation DNR (Do Not Resuscitate) Documentation 10/16/2024 12:43 PM * Full Code (Latest Code Status on File) Date Activated Date Inactivated Comments 09/14/2024 4:55 PM 10/12/2024 5:57 PM * Full Code Date Activated Date Inactivated Comments 09/03/2024 3:31 AM 09/10/2024 2:01 PM * Full Code Date Activated Date Inactivated Comments 12/31/2023 1:36 AM 01/07/2024 3:08 PM * Full Code Date Activated Date Inactivated Comments 01/05/2019 12:27 AM 01/09/2019 2:43 PM * Full Code Date Activated Date Inactivated Comments 08/22/2018 4:02 AM 08/28/2018 6:40 PM Care Teams Store Specialist Relationship Specialty Start Date End Date Chon Gaona PA [address] [place] [id number] PCP - General 06/23/15
--- OUTSIDE RECORDS SUMMARY | 2024-10-24 23:08 | XMS_ITS | Encounter Summary ---
Author Organization [facility] Care Team Providers Care Batch Tester Name Role Phone TANNER Gaona Jr., Robert James Primary Care Provide r Beatrice Gardner RN Unavailable Mandy Mancia MD Unavailable [phone] Paulino Hernandez MA Unavailable Shannan Cadet LPN Unavailable Stephania Aguilar RN Unavailable Washington Lopez MD Unavailable [phone] Audi Garcia MD Unavailable TANNER Gaona Jr., Robert James Primary Care Provide r Referral, Self Primary Care Provider Unavailabl e TANNER Gaona Jr., Robert James Primary Care Provide r No, Physician Primary Care Provider Unknown, Notinfile Primary Care Provider Unavail able Encounter Details Date Type Department Care Team (Latest Contact Info) Description 01/23/2017 Orders Only [facility] CLINCONV Provider, MD Kvng [address] [place] [address] Social History Tobacco Use Types Packs/Day Years Used Date Smoking Tobacco: Never Assessed Comments Unknown Sex and Gender Information Value Date Recorded Sex Assigned at Not on file Legal Sex Female 7:09 PM CDT Gender Identity Not on file Sexual Orientation Not on file documented as of this encounter Plan of Treatment Not on file documented as of this encounter Procedures Procedure Name Priority Date/Time Associated Diagnosis Comments SCAN - PATHOLOGY 01/23/2017 12:0 0 AM CDT documented in this encounter Results * SCAN - PATHOLOGY (01/23/2017 12:00 AM CDT) Narrative 01/23/2017 12:00 AM CDT Ordered by an unspecified provider. us Historical Provider Final Res ult documented in this encounter Visit Diagnoses Not on filedocumented in this encounter Additional Health Concerns Infection Onset Date Last Indicated Resolved Time COVID: Suspected 06/18/2024 06/18/2024 06/18/2024 1:27 PM CDT VRE 07/23/2024 07/23/2024 C. difficile suspected 08/20/2024 08/20/202408/21 7:46 AM CDT documented as of this encounter Care Teams Batch Tester Relationship Specialty Start Date End Date Chon Gaona Jr., PA PCP - General Physician Supervisor [employer] 08/28/18 06/03/24 Chon Gaona Jr., PA [address] [place] [address] PCP - General Family Medicine 06/08/24 06/09/24 Referral, Self PCP - General 06/12/24 06/21/24 Chon Gaona Jr., PA [address] [place] [address] PCP - General Family Medicine 06/22/24 06/22/24 No, Physician PCP - General 07/13/24 08/04/24 Unknown, Notinfile PCP - General 08/05/24 10/13/24 Beatrice Gardner, RN Christmas Tree Contractor 09/01/18 09/01/18 Mandy Mancia MD [address] [place] [address] Consulting Physician Family Medicine 09/15/18 Paulino Hernandez, MA [address] [place] [address] [employer] Care Materials Management Clerk 09/25/22 09/26/22 Shannan Cadet LPN [address] [place] [address] [address] [place] [address] Christmas Tree Contractor 03/28/23 03/28/23 Stephania Aguilar RN [address] [place] [address] [address] [place] [address] Christmas Tree Contractor 02/10/24 03/06/24 Washington Lopez MD [address] [place] [address] Consulting Physician Neurology 02/18/24 Audi Garcia MD [address] [place] [address] Consulting Physician Gastroenterology 02/18/24 documented as of this encounter
--- OUTSIDE RECORDS SUMMARY | 2024-10-24 23:08 | XMS_ITS | Encounter Summary ---
Author Organization [facility] Healthcare Address [address] [place] [address] Care Team Providers Care Hi Lo Driver Name Role Phone Mandy Mancia MD Unavailable [phone] Washington Lopez MD Unavailable [phone] Audi Garcia MD Unavailable Unknown, Notinfile Primary Care Provider Unavail able Encounter Details Date Type Department Care Team (Late st Contact Info) Description 09/14/2024 Results Follow-Up [facility] Post Acute Care [address] [id number] Eliezer Tello MD [address] [place] [id number] CBC without differential, Comprehensive metabolic panel, eGFR Social History Tobacco Use Types Packs/Day Years Used Date Smoking Tobacco: Never Smokeless Tobacco: Never [facility] Utilities Answer Date Recorded In the past 12 months has [employer], gas, oil, or water company threatened to shut off services in your home? No 08/21/2024 Social Connection and Isolation Panel [NHANES] A nswer Date Recorded In a typical week, how many times do you talk on the phone with family, friends, or neighbors? Patient unable to answer 08/21/2024 How often do you get togethe r with friends or relatives? Patient unable to answer 08/21/2024 How often do you attend chur ch or zoroastrian services? Patient unable to answer 08/21/2024 Do you belong to any clubs o r organizations such as religion groups, unions, fraternal or athletic groups, or school groups? Patient unable to answer 08/21/2024 How often do you attend meet ings of the clubs or organizations you belong to? Patient unable to answer 08/21/2024 Are you , , di vorced, , never , or living with a partner? 08/21/2024 AUDIT-C Answer Date Recorded Q1: How often do you have a drink containing alcohol? Never 01/22/2023 Q2: How many drinks containi ng alcohol do you have on a typical day when you are drinking? Patient does not drink Q3: How often do you have si x or more drinks on one occasion? Never 01/22/2023 Overall Financial Resource Strain (CARDIA) Answe r Date Recorded How hard is it for you to pa y for the very basics like food, housing, medical care, and heating? Not hard at all 08/21/2024 PHQ-2 Answer Date Recorded PHQ-2 Total Score (If total score is 3 or more points, staff should administer the PHQ-9) 0 06/24/2023 Hunger Vital Sign Answer Date Recorded Within the past 12 months, y ou worried that your food would run out before you got the money to buy more. Never true 08/22/19 Within the past 12 months, t he food you bought just didn't last and you didn't have money to get more. Never true 08/21/2024 PRAPARE - Transportation Answer Date Re corded In the past 12 months, has l ack of transportation kept you from medical appointments or from getting medications? No 07/31 In the past 12 months, has l ack of transportation kept you from meetings, work, or from getting things needed for daily living? No 08/21/2024 Housing Stability Vital Sign Answer Juan Francisco e Recorded In the last 12 months, was t here a time when you were not able to pay the mortgage or rent on time? No 03/27/2023 In the last 12 months, how many places have you lived? 1 03/27/2023 In the last 12 months, was t here a time when you did not have a steady place to sleep or slept in a chcf (including now)? No 03/27/2023 Housing Stability Vital Sign Answer Juan Francisco e Recorded In the last 12 months, was t here a time when you were not able to pay the mortgage or rent on time? No 08/21/2024 In the past 12 months, how m any times have you moved where you were living? 0 08/21/2024 At any time in the past 12 m [facility], were you homeless or living in a chcf (including now)? No 08/21/2024 Personal Safety Answer Date Recorded Have you ever been in or are you currently in a harmful physical or emotional relationship or is someone making you feel afraid or unsafe? Denies 08/20/2024 Comments No Sex and Gender Information Value Date Recorded Sex Assigned at Not on file Legal Sex Female 7:09 PM CDT Gender Identity Not on file Sexual Orientation Not on file documented as of this encounter Miscellaneous Notes * Result Encounter Note - Eliezer Tello MD - 09/14/2024 1:55 PM CDT Results reviewed and discussed with the patient, daughter, and granddaughter. Transferred to [facility] for further treatment documented in this encounter Plan of Treatment Not on file documented as of this encounter Goals Goal Patient Goal Type Associated Problems Recent Progress Patient-Stated? Author CLARA General Goal - Patient schedules and keeps appointments with all recommended providers ACO Care Management No Stephania Aguilar, RN Note: Problem: Potential for medical complications and readmission if follow-up appointments are not scheduled Interventions: - Ensure all follow-up appointments are scheduled, all prescribed medications have been received. - Address any barriers for keeping scheduled appointment. - Coordinate with patient/caregiver(s) to ensure patient is able to keep scheduled appointment. - Emphasize importance of keeping scheduled appointments. - Identify and discuss questions for next provider visit. - Follow up with patient after scheduled appointment(s) to review any new orders or changes made to medication regimen. CLARA General Goal - Patient / caregiver verbalizes lifestyle changes necessary to meet self-care needs and executes self-care activities to utmost capability ACO Care Management Stephania Alatorre RN Note: Problem: At Risk for Self Care Deficit Interventions: - Assess patient's level of dependence on others along with current level of assistance being provided. - Use motivational interviewing to help guide the patient in accepting the needed amount of assisstance, as applicable. - Contact caregiver and assess their involvement with patient and level of assistance provided, as appropriate. - Assess appropriateness for Home Health. Start referral process if skilled need is present. - Encourage independent ADL's as appropriate. Ensure patient has the appropriate tools at home to be as independent as possible. - Provide fall prevention education to patient and caregiver. - Evaluate need for assistive devices. - Refer to SW if appropriate and patient is agreeable. CLARA General Goal - Patient/caregiver will verbalize understanding of fall prevention techniques and will sustain no additional falls during Care Management program ACO Care Management Stephania Alatorre RN Note: Problem: At Risk for Falls related to history of falls Interventions: - Review fall prevention/home safety guidelines with patient. Send educational materials if needed. - Assess patient's current tools and equipment used currently. Evaluate if additional tools or DME are needed to improve safety and decrease fall risk. - Assess appropriateness for Home Health. Start referral process if skilled need is present. - Evaluate need for Lifeline or other medical alert device. - Discuss importance of notifying primary provider when a fall occurs with details about the circumstances of the fall. - Refer to SW if appropriate and patient is agreeable. documented as of this encounter Visit Diagnoses Not on filedocumented in this encounter Additional Health Concerns Infection Onset Date Last Indicated Resolved Time VRE 07/23/2024 07/23/2024 documented as of this encounter Care Teams Hi Lo Driver Relationship Specialty Start Date End Date Unknown, Notinfile PCP - General 08/05/24 10/13/24 Mandy Mancia MD [address] [place] [address] Consulting Physician Family Medicine 09/15/18 Washington Lopez MD [address] [place] [address] [place] [id number] Consulting Physician Neurology 02/18/24 Audi Garcia MD [address] [place] [address] [place] [id number] Consulting Physician Gastroenterology 02/18/24 documented as of this encounter
--- OUTSIDE RECORDS SUMMARY | 2024-10-24 23:08 | XMS_ITS | Referral Summary ---
Author Organization [address] Address [address] [place] [id number] Care Team Providers Care Graphite Mill Operator Name Role Phone Mandy Mancia MD Unavailable [phone] Washington Lopez MD Unavailable [phone] Audi Garcia MD Unavailable Encounters Date Type Department Care Team Description 10/07/2024 Telephone [facility] [address] [place] [address] Debra Mueller 09/14/2024 NH/SNF Visit [facility] Acute [facility] [address] [phone] Eliezer Tello MD JUANITA (acute kidney injury) (Primary Dx); Leukocytosis, unspecified type; Other ulcerative colitis with fistula (HCC); Essential (primary) hypertension 09/14/2024 Results Follow-Up [facility] [address] [phone] Eliezer Tello MD CBC without differential, Comprehensive metabolic panel, eGFR 09/14/2024 Orders Only [facility] [address] [place] [phone] Eliezer Tello MD 09/11/2024 NH/SNF Visit [facility] Post Acute Care [address] [phone] Eliezer Tello MD Closed fracture dislocation of left wrist with routine healing, subsequent encounter (Primary Dx); Other ulcerative colitis with fistula (HCC); Diverticulitis; Essential (primary) hypertension; Dysuria; Anxiety and depression; Moderate dementia without behavioral disturbance, psychotic disturbance, mood disturbance, or anxiety, unspecified dementia type (HCC) 09/10/2024 Orders Only [facility] Group Post Acute Care of [address] [phone] Eliezer Tello MD Arthralgia, unspecified joint (Primary Dx) 09/03/2024 Orders Only [facility] Cardiology [address] [phone] Bryce Munoz MD 08/20/2024 4:47 AM CDT - 08/31/2024 1:41 PM CDT Hospital Encounter [facility] [address] [place] [address] Raz Miller MD Smith, MD Sara Ashley, MD Lidia Guzman, MD Dave Fermin, Lance Loving MD Abdominal pain, vomiting, and diarrhea (Primary Dx); Colonic fistula; Colovesical fistula; Sepsis, due to unspecified organism, unspecified whether acute organ dysfunction present (HCC); Colitis [K52.9]; Moderate dementia without behavioral disturbance, psychotic disturbance, mood disturbance, or anxiety, unspecified dementia type (HCC) [F03.B0]; Pancreatic mass [K86.89] Discharge Disposition: Discharge to [facility] facility 07/23/2024 6:37 PM CDT - 07/28/2024 2:37 PM CDT Hospital Encounter [facility] [address] [place] [phone] Slowik, Henry, DO Mariella Garcia MD Gaspe Mudiyanselage, MD Nathaniel Walker Anjanya Devendra, MD Fall, initial encounter (Primary Dx); Hematoma of left hip, initial encounter; Contusion of left knee, initial encounter; Acute cystitis with hematuria; Left wrist sprain, initial encounter; Generalized weakness; Altered mental status, unspecified altered mental status type; Acute encephalopathy Discharge Disposition: Discharge to [facility] facility from Last 3 Months Allergies Active Allergy Reactions Criticality Noted Date Comments Baclofen Other (See comments),Hallucinatio ns Medium 02/20/2015 Confusion Ibuprofen Other (See comments) Low 07/10/2018 Levofloxacin Other (See comments) Low 08/21/2018 weakness Nitrofurantoin Hives Medium 07/26/2023 Morphine Flushing (skin) Low 08/20/2024 Sulfa (Sulfonamide Antibiotics) Hives Medium 07/10/2018 hives Medications fluticasone propionate (FLONASE) 50 mcg/actuation nasal spray Administer 1 spray into each nostril daily as needed for allergies Active aspirin 81 mg chewable tablet Take 1 tablet (81 mg total) by mouth daily Active polyvinyl alcohol-povidone (ARTIFICIAL TEARS) 0.5-0.6 % Administer 1 drop into affected eye(s) 4 (four) times a day as needed for dry eyes Active ferrous sulfate ER 324 mg (65 mg iron) EC tablet Take 1 tablet (324 mg total) by mouth every other day 01/07/20 24 Active acetaminophen (TYLENOL) 500 mg tablet Take 2 tablets (1,000 mg total) by mouth every 8 (eight) hours Active cyanocobalamin (Vitamin B-12) 1,000 mcg tabletIndication s:Prevention of Vitamin B12 Deficiency Take 1 tablet (1,000 mcg total) by mouth daily 06/23/19 25 026 Active polyethylene glycol (MIRALAX) 17 gram/dose bulk powderIndication s:constipation Take 17 g by mouth daily as needed (Constipation) 06/23/19 25 Active buPROPion XL (Wellbutrin XL) 150 mg 24 hr tabletIndication s:Depression, major, recurrent, moderate (HCC) Take 1 tablet (150 mg total) by mouth every morning 30 tablet 07/11/[address] (CYMBALTA) 30 mg capsuleIndicatio ns:Depression, major, recurrent, moderate (HCC) Take 2 capsules (60 mg total) by mouth daily 60 capsule 07/11/19 25 Active metoprolol tartrate (LOPRESSOR) 50 mg immediate release tabletIndication s:Essential (primary) hypertension Take 1 tablet (50 mg total) by mouth 2 (two) times a day 60 tablet 07/11/19 25 Active montelukast (SINGULAIR) 10 mg tablet Take 1 tablet (10 mg total) by mouth nightly 30 tablet 07/11/19 25 Active amLODIPine (NORVASC) 5 mg tabletIndication s:Essential (primary) hypertension Take 2 tablets (10 mg total) by mouth daily 60 tablet 07/11/19 25 Active lidocaine (LIDODERM) 5 % Place 1 patch on the skin daily Remove & discard patch within 12 hours or as directed by MD. Left hip Active atorvastatin (LIPITOR) 20 mg tablet Take 1 tablet (20 mg total) by mouth every evening Active docusate sodium (COLACE) 100 mg capsuleIndicatio ns:constipation Take 1 capsule (100 mg total) by mouth daily as needed for constipation Active melatonin 5 mg tablet Take 1 tablet (5 mg total) by mouth nightly Active metoclopramide (REGLAN) 5 mg tablet Take 1 tablet (5 mg total) by mouth 3 (three) times a day Active pantoprazole DR (PROTONIX) 40 mg EC tabletIndication s:Stress Ulcer Prophylaxis Take 1 tablet (40 mg total) by mouth daily 30 tablet 09/01/19 25 Active potassium chloride ER (KLOR-CON) 20 mEq CR tablet Take 1 tablet (20 mEq total) by mouth daily for 15 days 15 tablet 09/02/19 25 Active HYDROcodone-acet aminophen (NORCO) 10-325 mg per tabletIndication s:Pain Take 1 tablet by mouth every 6 (six) hours as needed for pain 60 tablet 09/11/19 25 025 Active Problems Problem Noted Date Diagnosed Date JUANITA (acute kidney injury) 09/14/2024 Other ulcerative colitis with fistula 09/12/2024 Assessment & Plan (09/14/2024 6:34 PM CDT): I have reviewed today's labs and current medication orders. I have reviewed the findings with the daughter and granddaughter. Given her abnormal labs and nocturnal hallucinations I am very concerned about sepsis. I have suggested transport to the emergency room. The patient and family have asked to be sent to [facility]. This will be affected and I have called report to the ER Dr. Sutton. Assessment & Plan (09/12/2024 8:24 AM CDT): This history is verified by grandmarc Nelson at the bedside and available records. Currently subacute. She has been bothered by recurring nausea with vomiting but Leslie notes that this is controlled with her Reglan. More troublesome of late has been ongoing diarrhea but this also seems to be better in the past 24 hours. We will continue to monitor. The granddaughter and family are speaking with outpatient GI on Saturday to arrange a prompt follow up. This will be for advice and planning for care of the colitis. In the interim we will offer supportive care and nutritional support. We will continue the hydrocodone with acetaminophen every 6 hours prn for pain, lactobacillus b.i.d., metoclopramide 5 mg t.i.d. a.c., and Protonix 40 mg daily. Closed fracture dislocation of wrist with routin e healing 09/12/2024 Assessment & Plan (09/12/2024 8:25 AM CDT): Leslie notes that her grandmother has had several falls while in assisted living. During her inpatient care she was found to have a subacute fracture of the left wrist. She is now in a orthotic wrist support and we will follow up with Orthopedics and her primary provider. Diverticulitis 09/12/2024 Dysuria 09/12/2024 Assessment & Plan (09/12/2024 8:28 AM CDT): Ney Nelson notes that this has been an ongoing symptom for about 2 months. I have ordered Pyridium 200 mg t.i.d. p.c., nystatin topical cream to be applied to the labia b.i.d. for 5 days. Abdominal pain, vomiting, and diarrhea Fall 07/24/2024 UTI (urinary tract infection) 07/23/2024 Colon wall thickening 06/26/2024 Assessment & Plan (06/26/2024 3:26 PM CDT): Noted on imaging report January 19, 2024 History of CVA (cerebrovascular accident) 2024 Assessment & Plan (07/10/2024 1:14 PM CDT): Stable, continue post stroke prophylaxis with aspirin, atorvastatin, blood pressure control Assessment & Plan (06/26/2024 9:53 PM CDT): No new findings on recent imaging, Neurology confirmed no new CVA but history of old CVAs. We will continue post stroke prophylaxis with aspirin, atorvastatin, blood pressure control Acute encephalopathy 06/20/2024 Assessment & Plan (06/26/2024 3:24 PM CDT): This is acute but now improved. We will resume her physical and occupational therapy. Hyponatremia 06/20/2024 Assessment & Plan (07/10/2024 1:11 PM CDT): Resolved, current sodium 139 Assessment & Plan (07/06/2024 7:22 PM CDT): Labile, currently 133. We will continue to monitor Assessment & Plan (06/26/2024 3:27 PM CDT): This is a subacute problem that is resolved. We will continue to monitor follow up lab Hypovolemia dehydration 06/20/2024 Stage 2 chronic kidney disease 06/20/2024 Assessment & Plan (07/10/2024 1:11 PM CDT): At baseline, BUN/creatinine 23/0.75 with a GFR of 77 Assessment & Plan (06/29/2024 8:35 PM CDT): Stable, BUN/creatinine 20/0.67 with a GFR of 85 Gastroesophageal reflux disease without esophagi tis 06/20/2024 Assessment & Plan (07/10/2024 1:11 PM CDT): Stable, continue metoclopramide t.i.d. Assessment & Plan (07/03/2024 6:35 PM CDT): Symptoms controlled, continue reglan TID Thrombocytosis 06/20/2024 Leukocytosis 06/20/2024 Assessment & Plan (09/14/2024 6:35 PM CDT): Transport to the emergency room, lab reviewed Assessment & Plan (07/10/2024 1:12 PM CDT): WBC labile ranging from 11.2-16.5, most recent workup on 07/08/2024 was unrevealing. Blood cultures negative, UA did not reflex to culture, patient has remained afebrile. Left wrist is now back to baseline. No other infectious symptoms. Assessment & Plan (07/06/2024 7:22 PM CDT): Etiology remains unclear as patient does not have any current complaints. Current white blood cell count 16.5, we will check UA, blood cultures patient is afebrile. Assessment & Plan (06/29/2024 8:36 PM CDT): Etiology unclear, patient afebrile. WBC 11.2. We will monitor, follow-up labs 07/01/2024 Anxiety and depression 06/20/2024 Assessment & Plan (09/12/2024 8:29 AM CDT): This is chronic and currently stable. We will continue bupropion 150 mg daily Multiple lacunar infarcts 06/20/2024 Altered mental status, unspe cified altered mental status type 06/18/2024 Assessment & Plan (06/20/2024 2:46 PM CDT): Granddaughter is at the bedside. She notes that the current mental status is different from her baseline. She asked that I transfer grandmother to the emergency room at [facility] for further evaluation. This is completed and I called report to the ER charge nurse before transfer. Anemia in other chronic diseases classified else where 06/16/2024 Assessment & Plan (06/16/2024 2:11 PM CDT): Follow up labs will be ordered. Recent inpatient labs reviewed. We will continue ferrous sulfate 325 mg p.o. q.o.d.. Pyogenic arthritis of left wrist 06/11/2024 Assessment & Plan (07/10/2024 1:14 PM CDT): Incision healed, patient has completed ceftriaxone/doxycycline on 06/30/2024. Pain is now much better controlled, will change tramadol to p.r.n., continue scheduled Tylenol although this can change to p.r.n. also if she remained stable. Had been following with Dr. Brooks, can follow up prn Assessment & Plan (07/02/2024 2:36 PM CDT): She has now completed her course of ceftriaxone and oral antibiotic. Follow up labs are pending. Continue tramadol 50 mg p.o. t.i.d.. Assessment & Plan (06/30/2024 12:04 PM CDT): Incision is healed, no edema erythema or pain. Continue scheduled Tylenol, p.r.n. tramadol. Completed ceftriaxone/doxycycline today. Reviewed Infectious Disease note that does not indicate that patient should continue oral antibiotics for an extended period of time. Has sent message confirming this with [employer]. Assessment & Plan (06/26/2024 9:55 PM CDT): Incision stable, minimal edema, no erythema. Patient reports pain is controlled, continue Tylenol 1000 mg t.i.d., p.r.n. tramadol. Completing ceftriaxone 2 g daily through 07/11/2024, doxycycline 100 mg b.i.d. through same date. Assessment & Plan (06/26/2024 3:23 PM CDT): This originally brought her to [facility] half-way [facility] [place]. She is to follow up with Orthopedics. She is to continue her current antibiotics including ceftriaxone 2 g IV daily and doxycycline 100 mg p.o. b.i.d.. The stop date for both is now July 11. Assessment & Plan (06/20/2024 2:47 PM CDT): This is subacute, currently stable. Today's labs including a CBC and a comprehensive metabolic profile are reviewed with the granddaughter to her satisfaction. The white blood cell count elevation is improving. Our plan is to continue ceftriaxone 2 g every 24 hours and doxycycline oral as per the intended course. Assessment & Plan (06/16/2024 9:38 PM CDT): Patient reports her pain is controlled, continue scheduled Tylenol, p.r.n. tramadol. She is concerned about incision - has a scheduled follow-up with hand surgery on 06/19/2024 at 8:30 a.m. with [facility]. Patient will need transportation, unless Orthopedic surgery is willing to give orders for us to remove sutures. Current incision is stable. Pain is controlled with scheduled Tylenol, p.r.n. tramadol. Tolerating ceftriaxone 2 g IV daily, doxycycline b.i.d. orally - which will complete on 06/30/2024 Assessment & Plan (06/16/2024 2:09 PM CDT): She was inpatient 8 days and underwent orthopedic intervention with [facility]. she is now completing her course of antibiotic therapy in the form of ceftriaxone 2 g IV daily times 18 days and doxycycline 100 mg p.o. b.i.d. times 19 days. Follow up labs will be ordered. We will continue the tramadol 50 mg every 6 hours p.r.n. pain. Assessment & Plan (06/11/2024 1:47 PM CDT): Continue IV/PO abx as ordered. PT/OT. PICC line care. Wound care PRN. Hand surgery to come over to [facility] to remove sutures. PRN Tyl + PRN Tramadol in place for pain. Will schedule Tyl . 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 As above patient is impulsive and has poor safety awareness. Continue supportive care Assessment & Plan (07/03/2024 6:46 PM CDT): Likely vascular in nature, pt more verbally interactive with family at bedside. Still needs significant encouragement to participate and to get and stay OOB. MOCA 03/25. Admission to acute rehab was denied by insurance. Continue therapies, will need 24hour care at discharge Assessment & Plan (06/26/2024 9:54 PM CDT): Likely vascular, last MOCA indicating significant cognitive decline. Patient has been refusing to participate in therapy despite encouragement from family. Patient will likely need 24 hour care at discharge Assessment & Plan (06/26/2024 3:25 PM CDT): This is assumed to be secondary to vascular. Does have a history of multiple lacunar infarcts. We will continue aspirin 81 mg daily, atorvastatin 20 mg daily. Assessment & Plan (06/11/2024 1:44 PM CDT): on MOCA. INFORMATION TECHNOLOGY ADMINISTRATOR following. No behaviors noted. Left wrist pain 06/02/2024 Assessment & Plan (06/11/2024 10:07 AM CDT): S/t septic arthritis. Depression, major, recurrent, moderate Assessment & Plan (07/10/2024 1:14 PM CDT): Mood is labile, generally cooperative however patient has poor safety awareness in his impulsive. Continue Wellbutrin, Cymbalta Assessment & Plan (07/03/2024 6:36 PM CDT): Pt more interactive this am with great grandsons at bedside. Still declining to get OOB. Mood about the same. Continue wellbutrin and cymbalta Assessment & Plan (07/02/2024 2:37 PM CDT): This is chronic, currently stable. Continue bupropion 150 mg daily Assessment & Plan (06/30/2024 12:03 PM CDT): Patient is withdrawn, poor verbal interaction, no eye contact. Continue duloxetine 60 mg daily, tolerating bupropion 150 mg daily. No observed adverse effects from added bupropion, continue to monitor and consider increasing dose. Assessment & Plan (06/26/2024 3:24 PM CDT): Her granddaughter Leslie notes that the patient is more depressed than baseline. We will continue her duloxetine 60 mg daily but we will also add bupropion 150 mg Q 24 hours. We have agreed that if she has no adverse effects and if clinical observation calls for increasing the dose we can consider this after about a week. Assessment & Plan (06/16/2024 9:39 PM CDT): Patient's mood is stable, interactive and pleasant. No current behaviors. Continue duloxetine 60 mg daily Assessment & Plan (06/16/2024 2:10 PM CDT): This is chronic and currently stable. We will continue duloxetine as scripted. Assessment & Plan (06/11/2024 1:45 PM CDT): Stable with cymbalta. No GDR recommended at this time. Continue to monitor. Pancreatic mass 06/05/2023 Assessment & Plan (06/26/2024 3:26 PM CDT): Noted on imaging report January 19, 2024 Assessment & Plan (07/26/2023 9:40 AM CDT): CT March 2023 with 2 cm lesion in the pancreas. Subsequent MRI of the pancreas shows a 2.4 x 1.1 tubular cystic lesion without clear communication with the pancreatic duct. Differential includes IPMN versus cystic neoplasm. -recommend EUS for further evaluation, we will refer to [facility] Nonrheumatic mitral valve regurgitation 05/02/19 23 Hypercholesteremia 05/02/2022 Assessment & Plan (07/10/2024 1:09 PM CDT): Stable, continue atorvastatin Assessment & Plan (06/26/2024 3:22 PM CDT): This is chronic and currently stable. Please continue atorvastatin 20 mg daily. Assessment & Plan (06/16/2024 2:10 PM CDT): This is chronic currently stable. We will continue the scripting of atorvastatin 20 mg daily and dietary we will consult follow. Macrocytic anemia 05/02/2022 Assessment & Plan (07/10/2024 1:11 PM CDT): Stable, H&H 11.4/35.1, continue iron supplementation Assessment & Plan (06/26/2024 3:28 PM CDT): We will continue ferrous sulfate 324 mg q.o.d.. We will continue to monitor follow up lab. Dyspnea on exertion 05/02/2022 Colitis 12/24/2021 Assessment & Plan (07/26/2023 9:39 AM CDT): Patient was admitted to the hospital in [...] will consider flexible sigmoidoscopy in the future Assessment & Plan (04/16/2022 2:17 PM PRODUCT DISTRIBUTION SPECIALIST): Patient was admitted to the hospital in November of 2021 for abdominal pain, nausea, vomiting, and diarrhea. CT scan without contrast November 2021 notable for thickening of the wall of the descending and sigmoid colon with inflammatory stranding in the surrounding fat suggesting inflammatory or infectious colitis. Patient was also noted to have a UTI. She was treated with antibiotics. Patient's last colonoscopy was December [address] Irizarry notable for moderate diverticulosis with a 5 cm stricture from 20-25 cm status post dilation to 13.5 mm. Patient also had a colonoscopy in July of 2018 notable for moderate left-sided colitis with ulcerations, stricture at 20 cm from the sigmoid colon, rectal polyp removed. -discuss colonoscopy, patient defers at this time. We will readdress next visit and request cardiac clearance. -obtain prior GI records with pathology Essential (primary) hypertension 01/15/2021 Assessment & Plan (09/14/2024 6:35 PM CDT): Chronic condition, current vital signs reviewed. In the interim pending ER and hospital evaluation we will continue the scripting of amlodipine, metoprolol tartrate. Assessment & Plan (09/12/2024 8:27 AM CDT): This is chronic, currently stable. Monitor serial vital signs for trending. Continue amlodipine 10 mg daily, metoprolol tartrate 50 mg p.o. b.i.d. Assessment & Plan (07/10/2024 1:10 PM CDT): Overall well controlled with increase Norvasc dose 10 mg daily, continue metoprolol 50 mg b.i.d. Assessment & Plan (07/07/2024 4:18 PM CDT): Blood pressure labile, continue metoprolol 50 mg b.i.d., we will increase amlodipine to 10 mg daily Assessment & Plan (07/03/2024 6:26 PM CDT): BP stable. Continue norvasc 5mg daily, metoprolol 50mg bid. Assessment & Plan (07/02/2024 2:36 PM CDT): This is chronic and we will continue to monitor serial vital signs for trending. Continue amlodipine and metoprolol as scripted. Assessment & Plan (06/30/2024 12:02 PM CDT): Blood pressure is controlled, continue metoprolol 50 mg b.i.d., amlodipine 5 mg daily Assessment & Plan (06/26/2024 9:52 PM CDT): Blood pressure stable, continue amlodipine 5 mg daily, metoprolol 50 mg b.i.d. Assessment & Plan (06/26/2024 3:21 PM CDT): This is a chronic condition that is currently stable. Please continue to monitor serial vital signs for trending. Continue amlodipine 5 mg daily, metoprolol tartrate 50 mg p.o. b.i.d.. Assessment & Plan (06/20/2024 2:47 PM CDT): This is a chronic problem in his currently stable. I recommend continuing her metoprolol tartrate and Demadex as scripted. Also continue amlodipine 5 mg daily. Assessment & Plan (06/16/2024 9:19 PM CDT): Blood pressure well controlled, continue torsemide 10 mg daily, Lopressor 50 mg b.i.d., amlodipine 5 mg daily Assessment & Plan (06/16/2024 2:09 PM CDT): This is chronic and currently stable. We will continue amlodipine 5 mg daily, metoprolol tartrate 50 mg p.o. b.i.d.. Assessment & Plan (06/11/2024 10:08 AM CDT): BP mildly elevated. Continue Norvasc, Toprol & monitor. Resolved Problems Problem Noted Date Diagnosed Date Resolved Date Nausea and vomiting 07/26/2023 06/12/19 25 Assessment & Plan (07/26/2023 9:39 AM CDT): Continues to have nausea and vomiting after meals. This is a chronic issue. Gastric emptying study consistent with gastroparesis. -gastroparesis diet discussed, advised patient to eat 6 small meals per day Altered mental status, unspe cified altered mental status type 03/22/2023 06/11/2024 AMS (altered mental status) 03/22/2023 06/05/2023 Confusion 03/22/2023 06/05/2023 Agitation 03/22/2023 06/05/2023 Hypertensive urgency 03/22/2023 024 SIRS (systemic inflammatory response syndrome) 03/22/2023 06/11/[address] scan 03/22/2023 06/05/2023 Nonrheumatic tricuspid valve regurgitation 07/05/2022 06/05/2023 Elevated troponin 05/02/2022 06/05/2023 Nonrheumatic aortic valve insufficiency 05/02/2022 06/05/2023 Nausea and vomiting 04/16/2022 06/05/19 24 Assessment & Plan (04/16/2022 2:13 PM PRODUCT DISTRIBUTION SPECIALIST): Continues to have nausea and vomiting after meals. This is a chronic issue. -we will order gastric emptying study for further evaluation Diarrhea 04/16/2022 06/11/2024 Assessment & Plan (07/26/2023 9:27 AM CDT): Patient has chronic diarrhea alternating with constipation. Given her prior colonoscopies with sigmoid strictures, this may be related to obstructive type symptoms. -we will order stool studies rule out infectious etiology -plan for colonoscopy as above Assessment & Plan (04/16/2022 2:14 PM PRODUCT DISTRIBUTION SPECIALIST): Patient has chronic diarrhea alternating with constipation. Given her prior colonoscopies with sigmoid strictures, this may be related to obstructive type symptoms. -we will order stool studies rule out infectious etiology -plan for colonoscopy as above Acute cystitis without hematuria 06/05/2023 JUANITA (acute kidney injury) Immunizations Immunization Administration Dates Next Due Influenza, Quadrivalent, Hig h Dose, Preservative Free, Intrr 03/27/2023,01/29/2022 Influenza, Quadrivalent, Spl it, Preservative Free, Intramuscular 01/09/2019,12/27/2016 Influenza, Trivalent, High D ose, Split, Preservative Free, Intramuscular 02/26/2018,02/27/2016 Moderna SARS-CoV-2 Monovalent Vaccination (12+ Y RS) 04/27/2020 Social History Tobacco Use Types Packs/Day Years Used Date Smoking Tobacco: Never Smokeless Tobacco: Never Tobacco Cessation:Counseling Given: Not Answered [facility] Utilities Answer Date Recorded In the past 12 months has th e Materia, gas, oil, or water [employer] threatened to shut off services in your [...] answer 08/21/2024 How often do you attend [facility] or pentecostal services? Patient unable to answer 08/21/2024 Do you belong to any clubs o r organizations such as oriental orthodox groups, unions, fraternal or athletic groups, or [...] money to buy more. Never true 08/22/19 25 Within the past 12 months, t [...] place to sleep or slept in a penitentiary (including now)? No 03/27/2023 Housing Stability Vital [...] any time in the past 12 m [facility], were you homeless or living in a penitentiary (including now)? No 08/21/2024 Personal Safety Answer [...] on file Sexual Orientation Not on file Last Filed Vital Signs Vital Sign Reading Time Taken Comments Blood Pressure 130/68 09/14/2024 6:32 PM CDT Pulse 75 09/14/2024 6:32 PM CDT Temperature 36.8 C (98.2 F) 08/31/2024 11:39 AM CDT Respiratory Rate 18 09/11/2024 9:35 AM CDT Oxygen Saturation 96% 08/31/2024 11:39 AM CDT Inhaled Oxygen Concentration - - Weight 47.2 kg (104 lb 0.9 oz) 08/30/2024 7:45 A M CDT Height 144.8 cm (4' 9.01) 08/22/2024 8:57 AM CD T Body Mass Index 22.51 08/22/2024 8:57 AM CDT Plan of Treatment Not on file Goals Goal Patient Goal Type Associated Problems Recent Progress Patient-Stated? Author CLARA General Goal - Patient schedules and keeps appointments with all recommended providers [facility] Care Management Stephania Alatorre RN Note: Problem: Potential for medical complications [...] SW if appropriate and patient is agreeable. Medical Devices Implanted Type Area Logging Contractor Device Identifier Shelf Expiration Date Model / Serial / Lot Hand Right: Hand Teeth Tooth Description:Implants on top jaw Procedures Procedure Name Priority Date/Time Associated Diagnosis Comments EGFR Routine 09/14/2024 4:48 AM CDT COMPREHENSIVE METABOLIC PANEL Routine 09/14/2024 4:48 AM CDT CBC WITHOUT DIFFERENTIAL Routine 09/14/2024 4:48 AM CDT EGFR Routine 08/31/2024 6:42 AM CDT DIFFERENTIAL AUTO Routine 08/31/2024 6:4 2 AM CDT BASIC METABOLIC PANEL Routine 08/31/2024 6:42 AM CDT CBC WITH AUTO DIFFERENTIAL Routine 08/31/2024 6:42 AM CDT EGFR Routine 08/30/2024 8:31 AM CDT DIFFERENTIAL AUTO Routine 08/30/2024 8:3 1 AM CDT BASIC METABOLIC PANEL Routine 08/30/2024 8:31 AM CDT CBC WITH AUTO DIFFERENTIAL Routine 08/30/2024 8:31 AM CDT EGFR Routine 08/29/2024 8:32 AM CDT DIFFERENTIAL AUTO Routine 08/29/2024 8:3 2 AM CDT BASIC METABOLIC PANEL Routine 08/29/2024 8:32 AM CDT CBC WITH AUTO DIFFERENTIAL Routine 08/29/2024 8:32 AM CDT EGFR Routine 08/28/2024 6:38 AM CDT DIFFERENTIAL AUTO Routine 08/28/2024 6:3 8 AM CDT BASIC METABOLIC PANEL Routine 08/28/2024 6:38 AM CDT CBC WITH AUTO DIFFERENTIAL Routine 08/28/2024 6:38 AM CDT EGFR Routine 08/27/2024 6:24 AM CDT DIFFERENTIAL AUTO Routine 08/27/2024 6:2 4 AM CDT MAGNESIUM Routine 08/27/2024 6:24 AM CDT BASIC METABOLIC PANEL Routine 08/27/2024 6:24 AM CDT CBC WITH AUTO DIFFERENTIAL Routine 08/27/2024 6:24 AM CDT EGFR Routine 08/26/2024 5:30 AM CDT DIFFERENTIAL AUTO Routine 08/26/2024 5:3 0 AM CDT MAGNESIUM Routine 08/26/2024 5:30 AM CDT BASIC METABOLIC PANEL Routine 08/26/2024 5:30 AM CDT CBC WITH AUTO DIFFERENTIAL Routine 08/26/2024 5:30 AM CDT MAGNESIUM Routine 08/25/2024 6:00 AM CDT EGFR Routine 08/25/2024 6:00 AM CDT DIFFERENTIAL AUTO Routine 08/25/2024 6:0 0 AM CDT BASIC METABOLIC PANEL Routine 08/25/2024 6:00 AM CDT CBC WITH AUTO DIFFERENTIAL Routine 08/25/2024 6:00 AM CDT EGFR Routine 08/24/2024 5:14 AM CDT DIFFERENTIAL AUTO Routine 08/24/2024 5:1 4 AM CDT BASIC METABOLIC PANEL Routine 08/24/2024 5:14 AM CDT CBC WITH AUTO DIFFERENTIAL Routine 08/24/2024 5:14 AM CDT POCT GLUCOSE DEVICE Routine 08/23/2024 4 :42 PM CDT POCT GLUCOSE DEVICE Routine 08/23/2024 1 :16 PM CDT EGFR Routine 08/23/2024 8:15 AM CDT DIFFERENTIAL AUTO Routine 08/23/2024 8:1 5 AM CDT BASIC METABOLIC PANEL Routine 08/23/2024 8:15 AM CDT CBC WITH AUTO DIFFERENTIAL Routine 08/23/2024 8:15 AM CDT POCT GLUCOSE DEVICE Routine 08/22/2024 8 :39 PM CDT POCT GLUCOSE DEVICE Routine 08/22/2024 8 :19 AM CDT EGFR Routine 08/22/2024 4:40 AM CDT DIFFERENTIAL AUTO Routine 08/22/2024 4:4 0 AM CDT COMPREHENSIVE METABOLIC PANEL Routine 08/22/2024 4:40 AM CDT PHOSPHORUS Routine 08/22/2024 4:40 AM CDT CBC WITH AUTO DIFFERENTIAL Routine 08/22/2024 4:40 AM CDT POCT GLUCOSE DEVICE Routine 08/22/2024 4 :00 AM CDT POCT GLUCOSE DEVICE Routine 08/22/2024 2 :42 AM CDT POCT GLUCOSE DEVICE Routine 08/22/2024 1 :23 AM CDT POCT GLUCOSE DEVICE Routine 08/22/2024 1 2:58 AM CDT POCT GLUCOSE DEVICE Routine 08/21/2024 8 :07 PM CDT POCT GLUCOSE DEVICE Routine 08/21/2024 4 :48 PM CDT POCT GLUCOSE DEVICE Routine 08/21/2024 1 1:47 AM CDT EGFR Routine 08/21/2024 8:27 AM CDT CBC WITHOUT DIFFERENTIAL Routine 08/21/2024 8:27 AM CDT BASIC METABOLIC PANEL Routine 08/21/2024 8:27 AM CDT POCT GLUCOSE DEVICE Routine 08/21/2024 7 :40 AM CDT EGFR Routine 08/21/2024 5:57 AM CDT DIFFERENTIAL AUTO Routine 08/21/2024 5:5 7 AM CDT PHOSPHORUS Routine 08/21/2024 5:57 AM CDT MAGNESIUM Routine 08/21/2024 5:57 AM CDT BASIC METABOLIC PANEL Routine 08/21/2024 5:57 AM CDT CBC WITH AUTO DIFFERENTIAL Routine 08/21/2024 5:57 AM CDT POCT GLUCOSE DEVICE Routine 08/21/2024 4 :54 AM CDT POCT GLUCOSE DEVICE Routine 08/21/2024 1 2:52 AM CDT POCT GLUCOSE DEVICE Routine 08/20/2024 8 :52 PM CDT POCT GLUCOSE DEVICE Routine 08/20/2024 5 :23 PM CDT C. DIFFICILE TESTING Routine 08/20/2024 4:59 PM CDT POCT GLUCOSE DEVICE Routine 08/20/2024 1 2:15 PM CDT URINALYSIS, MICROSCOPIC ONLY STAT 08/20/2024 8:23 AM CDT URINE CULTURE STAT 08/20/2024 8:23 AM CDT URINALYSIS AND REFLEX TO MICROSCOPIC AND CULTURE STAT 08/20/2024 8:23 AM CDT SEPSIS LACTATE WITH REFLEX Timed 08/20/2024 8:[address] ABDOMEN PELVIS W CONTRAST ED 08/20/2024 6:13 AM CDT BLOOD CULTURE STAT 08/20/2024 5:53 AM CDT BLOOD CULTURE STAT 08/20/2024 5:53 AM CDT SEPSIS LACTATE WITH REFLEX STAT 08/20/2024 5:25 AM CDT ECG 12-LEAD STAT 08/20/2024 5:14 AM CDT EGFR STAT 08/20/2024 4:59 AM CDT DIFFERENTIAL AUTO STAT 08/20/2024 4:5 9 AM CDT MAGNESIUM STAT 08/20/2024 4:59 AM CDT COMPREHENSIVE METABOLIC PANEL STAT 08/20/2024 4:59 AM CDT CBC WITH AUTO DIFFERENTIAL STAT 08/20/2024 4:59 AM CDT EGFR Routine 07/28/2024 6:48 AM CDT DIFFERENTIAL AUTO Routine 07/28/2024 6:4 8 AM CDT CBC WITH AUTO DIFFERENTIAL Routine 07/28/2024 6:48 AM CDT BASIC METABOLIC PANEL Routine 07/28/2024 6:[address] HEAD WO CONTRAST ED Urgent/IP Urgent 07/25/2024 3:32 PM CDT DEXA AXIAL SKELETON BONE DENSITY 1 OR MORE SITES Routine 07/25/2017 3:15 PM CDT from Last 3 Months or Most Recently Relevant to Health Maintenance Results * (ABNORMAL) eGFR (09/14/2024 4:48 AM CDT) Pathologist [facility] eGFR 55(L) >=60 mL/min/1. 73 m2 ANA SPARROW Comment: Interpretive Data Reference Interval Normal >/= 90 mL/min/1.73m2 Mildly decreased* 60 - 89 mL/min/1.73m2 Mildly to moderately decreased 45 - 59 mL/min/1.73m2 Moderately to severely decreased 30 - 44 mL/min/1.73m2 Severely decreased 15 - 29 mL/min/1.73m2 Kidney Failure < 15 mL/min/1.73m2 *Relative to young adult level Estimated glomerular filtration rate is determined by the 2020 CKD-EPI equation recommended by the National Kidney Foundation (A Unifying Approach to GFR Estimation: Recommendations of the NKF-ASK Task Force on Reassessing the Inclusion of Race in Diagnosing Kidney Disease, JASN 2020). The CKD-EPI equation should not be used for patients with unstable renal function and has not been validated in children and those over 70. Current interpretive data was last reviewed 2021. [facility], [address] [place] [address]., [address] Blood 09/14/2024 4:4 8 AM CDT 09/14/2024 5:10 AM CDT us Eliezer Tello MD LAB BLOOD ORDERABLES Final R esult ANA [address] Department [place] [address] * (ABNORMAL) CBC without differential (09/14/2024 4:48 AM CDT) WBC 21.06(H) 3.80 - 9.90 K/cumm ANA SPARROW Comment:[address] [address] Hgb 11.2(L) 11.9 - 15.5 g/dL ANA SPARROW Comment:[address] [address] Hct 34.0(L) 35.6 - 45.5 % ANA SPARROW Comment:[address] [address] Plt 623(H) 150 - 400 K/cumm ANA SPARROW Comment:[address] [address] MPV 8.8(L) 9.1 - 12.3 fL ANA SPARROW Comment:[address] [address] RBC 3.60(L) 3.90 - 5.20 M/cumm ANA SPARROW Comment:[address], [address] MCV 94.4 81.3 - 96.4 fL ANA SPARROW Comment:[address], [address] MCH 31.1 27.1 - 33.3 pg ANA SPARROW Comment:[address], [address] MCHC 32.9 32.3 - 35.7 g/dL ANA SPARROW Comment:[address], [address] RDW CV 14.3 11.1 - 14.9 % ANA Comment:[address], [address] RDW SD 49.7(H) 35.7 - 48.1 fL ANA SPARROW Comment:[address], [address] NRBC abs 0.00 0.00 - 0.01 K/cumm ANA SPARROW Comment:[address], [address] Blood 09/14/2024 4:48 AM CDT 09/14/2024 5:10 AM CDT Eliezer Tello MD LAB BLOOD ORDERABLES Final R esult ANA [address] [facility] Department [place] [address] * (ABNORMAL) Comprehensive metabolic panel (09/14/2024 4:48 AM CDT) Sodium 136 135 - 145 mmol/L ANA SPARROW Comment:[address] [address] Potassium, pl 4.6 3.3 - 4.9 mmol/L ANA SPARROW Comment:[address], [address] Chloride 101 97 - 110 mmol/L ANA SPARROW Comment:[address], [address] CO2 23 22 - 32 mmol/L ANA SPARROW Comment:[address], [address] Anion gap 12 2 - 15 mmol/L [facility] Comment:[address] [address] BUN 23 6 - 25 mg/dL [facility] Comment:[address] [address] Creatinine 0.99 0.60 - 1.10 mg/dL [facility] Comment:[address] [address] Glucose 83 70 - 199 mg/dL [facility] Comment: Interpretive Data Fasting glucose >/= 126 mg/dl is diagnostic for diabetes. Fasting is defined as no caloric intake for at least 8 hours. Fasting glucose between 100 mg/dl to 125 mg/dl is diagnostic of prediabetes. In a patient with classic symptoms of hyperglycemia or hyperglycemic crisis, a random glucose >/= 200 mg/dl is diagnostic for diabetes. In the absence of unequivocal hyperglycemia, results should be confirmed by repeat testing. The classification and Diagnosis of Diabetes Diabetes Care 2021; 46: S19-S40. Current interpretive data was last revised 2022. [facility], [address] [place]., [address] Calcium 9.0 8.5 - 10.3 mg/dL [facility] Comment:[address] [address] Bilirubin, total 0.3 0.1 - 1.2 mg/dL [facility] Comment:[address] [address] Protein, pl 6.4(L) 6.5 - 8.5 g/dL [facility] Comment:[address] [address] Albumin 3.1(L) 3.5 - 5.0 g/dL [facility] Comment:[address] [address] Alk phos 114 40 - 130 Units/L [facility] Comment:[address] [address] ALT 19 7 - 45 Units/L [facility] Comment:[address] [address] AST 37 10 - 45 Units/L [facility] Comment:[address] [address] Blood 09/14/2024 4:48 AM CDT 09/14/2024 5:10 AM CDT us Eliezer Tello MD LAB BLOOD ORDERABLES Final R esult Performing Organization Address City/[facility] Co de Phone Number ANA [address] [place] [address] * eGFR (08/31/2024 6:42 AM CDT) eGFR 84 >=60 mL/min/1. 73 m2 Comment: Interpretive Data Reference Interval Normal >/= 90 mL/min/1.73m2 Mildly decreased* 60 - 89 mL/min/1.73m2 Mildly to moderately decreased 45 - 59 mL/min/1.73m2 Moderately to severely decreased 30 - 44 mL/min/1.73m2 Severely decreased 15 - 29 mL/min/1.73m2 Kidney Failure < 15 mL/min/1.73m2 *Relative to young adult level Estimated glomerular filtration rate is determined by the 2020 CKD-EPI equation recommended by the National Kidney Foundation (A Unifying Approach to GFR Estimation: Recommendations of the NKF-ASK Task Force on Reassessing the Inclusion of Race in Diagnosing Kidney Disease, JASN 2020). The CKD-EPI equation should not be used for patients with unstable renal function and has not been validated in children and those over 70. Current interpretive data was last reviewed 2021. Testing performed by: [facility], [address] [place] [address]., [address] Blood 08/31/2024 6:42 AM CDT 08/31/2024 6:59 AM CDT us Kathrine Stephens NP LAB BLOOD ORDERABLES Final Result Performing Organization Address City/[facility]/ZIP Co de Phone Number ANA [address] [place] [address] * (ABNORMAL) Differential, auto (08/31/2024 6:42 AM CDT) Neutrophil abs 6.98(H) 1.50 - 6.50 K/cumm Comment:Testing performed by : [address], [place]., [address] Imm gran abs 0.14(H) 0.00 - 0.10 K/cumm [facility] Comment:Testing performed by : [address], [place]., [address] Lymphocyte abs 1.75 0.80 - 3.30 K/cumm [facility] Comment:Testing performed by : [address], [place]., [address] Monocyte abs 1.54(H) 0.20 - 0.80 K/cumm [facility] Comment:Testing performed by : [address], [place]., [address] Eosinophil abs 0.56(H) 0.00 - 0.50 K/cumm [facility] Comment:Testing performed by : [address] [address] Basophil abs 0.10 0.00 - 0.10 K/cumm [facility] Comment:Testing performed by : [address] [address] Neutrophil pct 63.0 % [facility] Comment: Interpretive Data Percent cell count reference ranges are not reported, since discordance with absolute values may lead to misinterpretation of CBC data. Current Interpretive Data was last revised on 2017. Testing performed by: [address] [address] Imm gran pct 1.3 % [facility] Comment: Interpretive Data Percent cell count reference ranges are not reported, since discordance with absolute values may lead to misinterpretation of CBC data. Current Interpretive Data was last revised on 2017. Testing performed by: [address] [address] Lymphocyte pct 15.8 % [facility] Comment: Interpretive Data Percent cell count reference ranges are not reported, since discordance with absolute values may lead to misinterpretation of CBC data. Current Interpretive Data was last revised on 2017. Testing performed by: [address] [address] Monocyte pct 13.9 % [facility] Comment: Interpretive Data Percent cell count reference ranges are not reported, since discordance with absolute values may lead to misinterpretation of CBC data. Current Interpretive Data was last revised on 2017. Testing performed by: [address] [address] Eosinophil pct 5.1 % ANA SPARROW Comment: Interpretive Data Percent cell count reference ranges are not reported, since discordance with absolute values may lead to misinterpretation of CBC data. Current Interpretive Data was last revised on 2017. Testing performed by: [address] [address] Basophil pct 0.9 % ANA SPARROW Comment: Interpretive Data Percent cell count reference ranges are not reported, since discordance with absolute values may lead to misinterpretation of CBC data. Current Interpretive Data was last revised on 2017. Testing performed by: [address] [address] Blood 08/31/2024 6:42 AM CDT 08/31/2024 6:59 AM CDT us Kathrine Stephens [employer] LAB BLOOD ORDERABLES Final Result ANA [address] [facility] Department [place] [address] * (ABNORMAL) CBC with auto differential (08/31/2024 6:42 AM CDT) WBC 11.07(H) 3.80 - 9.90 K/cumm Comment:Testing performed by : [address] [address] Hgb 11.2(L) 11.9 - 15.5 g/dL ANA SPARROW Comment:Testing performed by : [address] [address] Hct 33.9(L) 35.6 - 45.5 % ANA SP[facility]OW Comment:Testing performed by : [address] [address] Plt 504(H) 150 - 400 K/cumm ANA SPARROW Comment:Testing performed by : [address] [address] MPV 8.9(L) 9.1 - 12.3 fL ANA Comment:Testing performed by : [address] [address] RBC 3.66(L) 3.90 - 5.20 M/cumm ANA SPARROW Comment:Testing performed by : [address] [address] MCV 92.6 81.3 - 96.4 fL ANA Comment:Testing performed by : [address] [address] MCH 30.6 27.1 - 33.3 pg ANA Comment:Testing performed by : [address] [address] MCHC 33.0 32.3 - 35.7 g/dL ANA Comment:Testing performed by : [address] [address] RDW CV 15.3(H) 11.1 - 14.9 % ANA Comment:Testing performed by : [address] [address] RDW SD 51.8(H) 35.7 - 48.1 fL ANA Comment:Testing performed by : [address] [address] NRBC abs 0.00 0.00 - 0.01 K/cumm ANA Comment:Testing performed by : [address] [address] Blood 08/31/2024 6:42 AM CDT 08/31/2024 6:59 AM CDT Kathrine Stephens NP LAB BLOOD ORDERABLES Final Result ANA SPARROW [address] [facility] Department [place] [address] * Basic metabolic panel (08/31/2024 6:42 AM CDT) Sodium 136 135 - 145 mmol/L Comment:Testing performed by : [facility], [address] [place] [address]., [address] Potassium, pl 3.9 3.3 - 4.9 mmol/L ANA Comment:Testing performed by : [address], [place]., [address] Chloride 102 97 - 110 mmol/L ANA Comment:Testing performed by : [address], [place]., [address] CO2 23 22 - 32 mmol/L ANA Comment:Testing performed by : [address], [place]., [address] Anion gap 11 2 - 15 mmol/L ANA Comment:Testing performed by : [address], [place]., [address] BUN 12 6 - 25 mg/dL ANA Comment:Testing performed by : [address], [place]., [address] Creatinine 0.68 0.60 - 1.10 mg/dL ANA Comment:Testing performed by : [address], [place]., [address] Glucose 88 70 - 199 mg/dL NAA Comment: Interpretive Data Fasting glucose >/= 126 mg/dl is diagnostic for diabetes. Fasting is defined as no caloric intake for at least 8 hours. Fasting glucose between 100 mg/dl to 125 mg/dl is diagnostic of prediabetes. In a patient with classic symptoms of hyperglycemia or hyperglycemic crisis, a random glucose >/= 200 mg/dl is diagnostic for diabetes. In the absence of unequivocal hyperglycemia, results should be confirmed by repeat testing. The classification and Diagnosis of Diabetes Diabetes Care 202; 46: S19-S40. Current interpretive data was last revised 2022. Testing performed by: [address] [address] Calcium 9.1 8.5 - 10.3 mg/dL ANA Comment:Testing performed by : [address], [place]., [address] Blood 08/31/2024 6:42 AM CDT 08/31/2024 6:59 AM CDT Kathrine Diaz Stephens [employer] LAB BLOOD ORDERABLES Final Result Performing Organization Address [facility] Co de Phone Number ANA [address] [place] [address] * eGFR (08/30/2024 8:31 AM CDT) eGFR 84 >=60 mL/min/1. 73 m2 Comment: Interpretive Data Reference Interval Normal >/= 90 mL/min/1.73m2 Mildly decreased* 60 - 89 mL/min/1.73m2 Mildly to moderately decreased 45 - 59 mL/min/1.73m2 Moderately to severely decreased 30 - 44 mL/min/1.73m2 Severely decreased 15 - 29 mL/min/1.73m2 Kidney Failure < 15 mL/min/1.73m2 *Relative to young adult level Estimated glomerular filtration rate is determined by the 2020 CKD-EPI equation recommended by the National Kidney Foundation (A Unifying Approach to GFR Estimation: Recommendations of the NKF-ASK Task Force on Reassessing the Inclusion of Race in Diagnosing Kidney Disease, JASN 2020). The CKD-EPI equation should not be used for patients with unstable renal function and has not been validated in children and those over 70. Current interpretive data was last reviewed 2021. Testing performed by: [address] [address] Blood 08/30/2024 8:31 AM CDT 08/30/2024 8:52 AM CDT Kathrine Stephens [employer] LAB BLOOD ORDERABLES Final Result Performing Organization Address City/[facility]/ZIP Co de Phone Number ANA [facility] [place] [address] * (ABNORMAL) Differential, auto (08/30/2024 8:31 AM CDT) Neutrophil abs 8.00(H) 1.50 - 6.50 K/cumm Comment:Testing performed by : [address] [address] Imm gran abs 0.10 0.00 - 0.10 K/cumm [facility] Comment:Testing performed by : [address] [address] Lymphocyte abs 1.82 0.80 - 3.30 K/cumm [facility] Comment:Testing performed by : [address], [place]., [address] Monocyte abs 1.23(H) 0.20 - 0.80 K/cumm [facility] Comment:Testing performed by : [address], [place]., [address] Eosinophil abs 0.32 0.00 - 0.50 K/cumm [facility] Comment:Testing performed by : [address] [address] Basophil abs 0.06 0.00 - 0.10 K/cumm [facility] Comment:Testing performed by : [address] [address] Neutrophil pct 69.3 % [facility] Comment: Interpretive Data Percent cell count reference ranges are not reported, since discordance with absolute values may lead to misinterpretation of CBC data. Current Interpretive Data was last revised on 2017. Testing performed by: [address] [address] Imm gran pct 0.9 % [facility] Comment: Interpretive Data Percent cell count reference ranges are not reported, since discordance with absolute values may lead to misinterpretation of CBC data. Current Interpretive Data was last revised on 2017. Testing performed by: [address] [address] Lymphocyte pct 15.8 % [facility] Comment: Interpretive Data Percent cell count reference ranges are not reported, since discordance with absolute values may lead to misinterpretation of CBC data. Current Interpretive Data was last revised on 2017. Testing performed by: [address] [address] Monocyte pct 10.7 % [facility] Comment: Interpretive Data Percent cell count reference ranges are not reported, since discordance with absolute values may lead to misinterpretation of CBC data. Current Interpretive Data was last revised on 2017. Testing performed by: [address] [address] Eosinophil pct 2.8 % ANA Comment: Interpretive Data Percent cell count reference ranges are not reported, since discordance with absolute values may lead to misinterpretation of CBC data. Current Interpretive Data was last revised on 2017. Testing performed by: [address] [address] Basophil pct 0.5 % ANA Comment: Interpretive Data Percent cell count reference ranges are not reported, since discordance with absolute values may lead to misinterpretation of CBC data. Current Interpretive Data was last revised on 2017. Testing performed by: [address] [address] Blood 08/30/2024 8:31 AM CDT 08/30/2024 8:52 AM CDT Kathrine Stephens NP LAB BLOOD ORDERABLES Final Result [facility] Department [place] [address] * (ABNORMAL) CBC with auto differential (08/30/2024 8:31 AM CDT) WBC 11.53(H) 3.80 - 9.90 K/cumm Comment:Testing performed by : [address] [address] Hgb 11.1(L) 11.9 - 15.5 g/dL ANA Comment:Testing performed by : [address] [address] Hct 34.0(L) 35.6 - 45.5 % ANA Comment:Testing performed by : [address] [address] Plt 511(H) 150 - 400 K/cumm ANA Comment:Testing performed by : [address] [address] MPV 8.7(L) 9.1 - 12.3 fL ANA SPARROW Comment:Testing performed by : [address] [address] RBC 3.59(L) 3.90 - 5.20 M/cumm ANA SPARROW Comment:Testing performed by : [address] [address] MCV 94.7 81.3 - 96.4 fL ANA Comment:Testing performed by : [address] [address] MCH 30.9 27.1 - 33.3 pg ANA Comment:Testing performed by : [address] [address] MCHC 32.6 32.3 - 35.7 g/dL ANA Comment:Testing performed by : [address] [address] RDW CV 15.1(H) 11.1 - 14.9 % ANA Comment:Testing performed by : [address] [address] RDW SD 51.8(H) 35.7 - 48.1 fL ANA Comment:Testing performed by : [address] [address] NRBC abs 0.00 0.00 - 0.01 K/cumm ANA Comment:Testing performed by : [address] [address] Blood 08/30/2024 8:31 AM CDT 08/30/2024 8:52 AM CDT Kathrine Stephens [employer]ATING [employer]ING SUPERVISOR LAB BLOOD ORDERABLES Final Result ANA 5623 [facility] Department [place] [address] * Basic metabolic panel (08/30/2024 8:31 AM CDT) Sodium 137 135 - 145 mmol/L Comment:Testing performed by : [address] [address] Potassium, pl 3.3 3.3 - 4.9 mmol/L ANA Comment:Testing performed by : [address] [address] Chloride 101 97 - 110 mmol/L ANA Comment:Testing performed by : [address] [address] CO2 27 22 - 32 mmol/L ANA Comment:Testing performed by : [address] [address] Anion gap 9 2 - 15 mmol/L ANA Comment:Testing performed by : [address] [address] BUN 12 6 - 25 mg/dL [facility] Comment:Testing performed by : [address] [address] Creatinine 0.70 0.60 - 1.10 mg/dL ANA Comment:Testing performed by : [address] [address] Glucose 82 70 - 199 mg/dL [facility] Comment: Interpretive Data Fasting glucose >/= 126 mg/dl is diagnostic for diabetes. Fasting is defined as no caloric intake for at least 8 hours. Fasting glucose between 100 mg/dl to 125 mg/dl is diagnostic of prediabetes. In a patient with classic symptoms of hyperglycemia or hyperglycemic crisis, a random glucose >/= 200 mg/dl is diagnostic for diabetes. In the absence of unequivocal hyperglycemia, results should be confirmed by repeat testing. The classification and Diagnosis of Diabetes Diabetes Care 2021; 46: S19-S40. Current interpretive data was last revised 2022. Testing performed by: [address] [address] Calcium 8.9 8.5 - 10.3 mg/dL [facility] Comment:Testing performed by : [address] [address] Blood 08/30/2024 8:31 AM CDT 08/30/2024 8:52 AM CDT Kathrine Stephens NP LAB BLOOD ORDERABLES Final Result ANA [facility]0 [facility] Department [place] [address] * eGFR (08/29/2024 8:32 AM CDT) Pathologist [facility] eGFR 66 >=60 mL/min/1. 73 m2 Comment: Interpretive Data Reference Interval Normal >/= 90 mL/min/1.73m2 Mildly decreased* 60 - 89 mL/min/1.73m2 Mildly to moderately decreased 45 - 59 mL/min/1.73m2 Moderately to severely decreased 30 - 44 mL/min/1.73m2 Severely decreased 15 - 29 mL/min/1.73m2 Kidney Failure < 15 mL/min/1.73m2 *Relative to young adult level Estimated glomerular filtration rate is determined by the 2020 CKD-EPI equation recommended by the National Kidney Foundation (A Unifying Approach to GFR Estimation: Recommendations of the NKF-ASK Task Force on Reassessing the Inclusion of Race in Diagnosing Kidney Disease, JASN 2020). The CKD-EPI equation should not be used for patients with unstable renal function and has not been validated in children and those over 70. Current interpretive data was last reviewed 2021. Testing performed by: [address] [address] Blood 08/29/2024 8:32 AM CDT 08/29/2024 8:56 AM CDT Kathrine Stephens NP LAB BLOOD ORDERABLES Final Result Performing Organization Address City/[facility] Co de Phone Number SEL[address] Department [place] [address] * (ABNORMAL) Differential, auto (08/29/2024 8:32 AM CDT) Pathologist [facility] Neutrophil abs 6.63(H) 1.50 - 6.50 K/cumm Comment:Testing performed by : [address] [address] Imm gran abs 0.14(H) 0.00 - 0.10 K/cumm ANA Comment:Testing performed by : [address] [place] [address] Lymphocyte abs 2.02 0.80 - 3.30 K/cumm ANA Comment:Testing performed by : [address] [address] Monocyte abs 0.99(H) 0.20 - 0.80 K/cumm ANA Comment:Testing performed by : [address] [address] Eosinophil abs 0.84(H) 0.00 - 0.50 K/cumm ANA Comment:Testing performed by : [address] [address] Basophil abs 0.11(H) 0.00 - 0.10 K/cumm ANA Comment:Testing performed by : [address] [address] Neutrophil pct 61.9 % [facility] Comment: Interpretive Data Percent cell count reference ranges are not reported, since discordance with absolute values may lead to misinterpretation of CBC data. Current Interpretive Data was last revised on 2017. Testing performed by: [address] [address] Imm gran pct 1.3 % [facility] Comment: Interpretive Data Percent cell count reference ranges are not reported, since discordance with absolute values may lead to misinterpretation of CBC data. Current Interpretive Data was last revised on 2017. Testing performed by: [address] [address] Lymphocyte pct 18.8 % [facility] Comment: Interpretive Data Percent cell count reference ranges are not reported, since discordance with absolute values may lead to misinterpretation of CBC data. Current Interpretive Data was last revised on 2017. Testing performed by: [address] [address] Monocyte pct 9.2 % CERNER Comment: Interpretive Data Percent cell count reference ranges are not reported, since discordance with absolute values may lead to misinterpretation of CBC data. Current Interpretive Data was last revised on 2017. Testing performed by: [address] [address] Eosinophil pct 7.8 % ANA SPARROW Comment: Interpretive Data Percent cell count reference ranges are not reported, since discordance with absolute values may lead to misinterpretation of CBC data. Current Interpretive Data was last revised on 2017. Testing performed by: [address] [address] Basophil pct 1.0 % ANA SPARROW Comment: Interpretive Data Percent cell count reference ranges are not reported, since discordance with absolute values may lead to misinterpretation of CBC data. Current Interpretive Data was last revised on 2017. Testing performed by: [address] [address] Blood 08/29/2024 8:32 AM CDT 08/29/2024 8:56 AM CDT Kathrine Stephens [employer] SUPER[employer]OR LAB BLOOD ORDERABLES Final Result Performing Organization Address City/State/[facility] Co de Phone Number ANA 7660 [facility] Department [place] [address] * (ABNORMAL) CBC with auto differential (08/29/2024 8:32 AM CDT) WBC 10.73(H) 3.80 - 9.90 K/cumm Comment:Testing performed by : [address] [address] Hgb 12.0 11.9 - 15.5 g/dL ANA SPARROW Comment:Testing performed by : [address] [address] Hct 37.1 35.6 - 45.5 % ANA SPARROW Comment:Testing performed by : [address] [address] Plt 589(H) 150 - 400 K/cumm ANA SPARROW Comment:Testing performed by : [address] [address] MPV 8.9(L) 9.1 - 12.3 fL ANA SPARROW Comment:Testing performed by : [address] [address] RBC 3.92 3.90 - 5.20 M/cumm ANA SPARROW Comment:Testing performed by : [address] [address] MCV 94.6 81.3 - 96.4 fL ANA SPARROW Comment:Testing performed by : [address] [address] MCH 30.6 27.1 - 33.3 pg ANA SPARROW Comment:Testing performed by : [address] [address] MCHC 32.3 32.3 - 35.7 g/dL ANA SPARROW Comment:Testing performed by : [address] [address] RDW CV 15.1(H) 11.1 - 14.9 % ANA SPARROW Comment:Testing performed by : [address] [address] RDW SD 52.1(H) 35.7 - 48.1 fL ANA SPARROW Comment:Testing performed by : [address] [address] NRBC abs 0.00 0.00 - 0.01 K/cumm ANA Comment:Testing performed by : [address] [address] Blood 08/29/2024 8:32 AM CDT 08/29/2024 8:56 AM CDT Kathrine Stephens NP LAB BLOOD ORDERABLES Final Result ANA 4675 [facility] Department of Laboratories [place], [place] [id number] * Basic metabolic panel (08/29/2024 8:32 AM CDT) Sodium 137 135 - 145 mmol/L Comment:Testing performed by : [address] [address] Potassium, pl 3.5 3.3 - 4.9 mmol/L ANA Comment:Testing performed by : [address] [address] Chloride 102 97 - 110 mmol/L ANA Comment:Testing performed by : [address] [address] CO2 25 22 - 32 mmol/L ANA Comment:Testing performed by : [address] [address] Anion gap 10 2 - 15 mmol/L ANA Comment:Testing performed by : [address] [address] BUN 16 6 - 25 mg/dL ANA Comment:Testing performed by : [address] [address] Creatinine 0.85 0.60 - 1.10 mg/dL ANA Comment:Testing performed by : [address] [address] Glucose 95 70 - 199 mg/dL ANA Comment: Interpretive Data Fasting glucose >/= 126 mg/dl is diagnostic for diabetes. Fasting is defined as no caloric intake for at least 8 hours. Fasting glucose between 100 mg/dl to 125 mg/dl is diagnostic of prediabetes. In a patient with classic symptoms of hyperglycemia or hyperglycemic crisis, a random glucose >/= 200 mg/dl is diagnostic for diabetes. In the absence of unequivocal hyperglycemia, results should be confirmed by repeat testing. The classification and Diagnosis of Diabetes Diabetes Care 202; 46: S19-S40. Current interpretive data was last revised 2022. Testing performed by: [address] [address] Calcium 9.2 8.5 - 10.3 mg/dL ANA Comment:Testing performed by : [address] [address] Blood 08/29/2024 8:32 AM CDT 08/29/2024 8:56 AM CDT us Kathrine Stephens NP LAB BLOOD ORDERABLES Final Result ANA 5970 [facility] Department [place] [address] * eGFR (08/28/2024 6:38 AM CDT) eGFR 81 >=60 mL/min/1. 73 m2 Comment: Interpretive Data Reference Interval Normal >/= 90 mL/min/1.73m2 Mildly decreased* 60 - 89 mL/min/1.73m2 Mildly to moderately decreased 45 - 59 mL/min/1.73m2 Moderately to severely decreased 30 - 44 mL/min/1.73m2 Severely decreased 15 - 29 mL/min/1.73m2 Kidney Failure < 15 mL/min/1.73m2 *Relative to young adult level Estimated glomerular filtration rate is determined by the 2020 CKD-EPI equation recommended by the National Kidney Foundation (A Unifying Approach to GFR Estimation: Recommendations of the NKF-ASK Task Force on Reassessing the Inclusion of Race in Diagnosing Kidney Disease, JASN 2020). The CKD-EPI equation should not be used for patients with unstable renal function and has not been validated in children and those over 70. Current interpretive data was last reviewed 2021. Testing performed by: [address] [address] Blood 08/28/2024 6:38 AM CDT 08/28/2024 6:45 AM CDT Kathrine Stephens NP LAB BLOOD ORDERABLES Final Result [facility] 1478 [facility] Department [place] [address] * (ABNORMAL) Differential, auto (08/28/2024 6:38 AM CDT) Pathologist [facility] Neutrophil abs 5.86 1.50 - 6.50 K/cumm Comment:Testing performed by : [address] [address] Imm gran abs 0.10 0.00 - 0.10 K/cumm ANA Comment:Testing performed by : [address] [address] Lymphocyte abs 2.44 0.80 - 3.30 K/cumm ANA Comment:Testing performed by : [address] [address] Monocyte abs 1.20(H) 0.20 - 0.80 K/cumm [facility] Comment:Testing performed by : [address] [address] Eosinophil abs 0.78(H) 0.00 - 0.50 K/cumm [facility] Comment:Testing performed by : [address], [place]., [address] Basophil abs 0.08 0.00 - 0.10 K/cumm [facility] Comment:Testing performed by : [address] [address] Neutrophil pct 55.9 % [facility] Comment: Interpretive Data Percent cell count reference ranges are not reported, since discordance with absolute values may lead to misinterpretation of CBC data. Current Interpretive Data was last revised on 2017. Testing performed by: [address] [address] Imm gran pct 1.0 % [facility] Comment: Interpretive Data Percent cell count reference ranges are not reported, since discordance with absolute values may lead to misinterpretation of CBC data. Current Interpretive Data was last revised on 2017. Testing performed by: [address] [address] Lymphocyte pct 23.3 % [facility] Comment: Interpretive Data Percent cell count reference ranges are not reported, since discordance with absolute values may lead to misinterpretation of CBC data. Current Interpretive Data was last revised on 2017. Testing performed by: [address] [address] Monocyte pct 11.5 % [facility] Comment: Interpretive Data Percent cell count reference ranges are not reported, since discordance with absolute values may lead to misinterpretation of CBC data. Current Interpretive Data was last revised on 2017. Testing performed by: [address] [address] Eosinophil pct 7.5 % [facility] Comment: Interpretive Data Percent cell count reference ranges are not reported, since discordance with absolute values may lead to misinterpretation of CBC data. Current Interpretive Data was last revised on 2017. Testing performed by: [address] [address] Basophil pct 0.8 % ANA SPARROW Comment: Interpretive Data Percent cell count reference ranges are not reported, since discordance with absolute values may lead to misinterpretation of CBC data. Current Interpretive Data was last revised on 2017. Testing performed by: [address] [address] Blood 08/28/2024 6:38 AM CDT 08/28/2024 6:45 AM CDT us Kathrine Stephens NP LAB BLOOD ORDERABLES Final Result ANA [facility]0 [facility] Department [place] [address] * (ABNORMAL) CBC with auto differential (08/28/2024 6:38 AM CDT) WBC 10.46(H) 3.80 - 9.90 K/cumm Comment:Testing performed by : [address] [address] Hgb 11.6(L) 11.9 - 15.5 g/dL ANA SPARROW Comment:Testing performed by : [address] [address] Hct 35.1(L) 35.6 - 45.5 % ANA SPARROW Comment:Testing performed by : [address] [address] Plt 480(H) 150 - 400 K/cumm ANA SPARROW Comment:Testing performed by : [address] [address] MPV 8.7(L) 9.1 - 12.3 fL ANA SPARROW Comment:Testing performed by : [address] [address] RBC 3.76(L) 3.90 - 5.20 M/cumm ANA SPARROW Comment:Testing performed by : [address] [address] MCV 93.4 81.3 - 96.4 fL ANA SPARROW Comment:Testing performed by : [address] [address] MCH 30.9 27.1 - 33.3 pg ANA SPARROW Comment:Testing performed by : [address] [address] MCHC 33.0 32.3 - 35.7 g/dL ANA SPARROW Comment:Testing performed by : [address] [address] RDW CV 14.8 11.1 - 14.9 % ANA SPARROW Comment:Testing performed by : [address] [address] RDW SD 50.4(H) 35.7 - 48.1 fL ANA SPARROW Comment:Testing performed by : [address] [address] NRBC abs 0.00 0.00 - 0.01 K/cumm ANA SPARROW Comment:Testing performed by : [address] [address] Blood 08/28/2024 6:38 AM CDT 08/28/2024 6:45 AM CDT Kathrine Stephens [employer] SUPERVISOR LAB BLOOD ORDERABLES Final Result Performing Organization Address City/State/[facility] Co de Phone Number ANA [facility]5 [facility] Department [place] [address] * Basic metabolic panel (08/28/2024 6:38 AM CDT) Sodium 137 135 - 145 mmol/L Comment:Testing performed by : [address] [address] Potassium, pl 3.5 3.3 - 4.9 mmol/L ANA SPARROW Comment:Testing performed by : [address] [address] Chloride 102 97 - 110 mmol/L ANA SPARROW Comment:Testing performed by : [address] [address] CO2 24 22 - 32 mmol/L ANA Comment:Testing performed by : [address] [address] Anion gap 11 2 - 15 mmol/L ANA Comment:Testing performed by : [address] [address] BUN 10 6 - 25 mg/dL ANA Comment:Testing performed by : [address] [address] Creatinine 0.72 0.60 - 1.10 mg/dL ANA Comment:Testing performed by : [address] [address] Glucose 94 70 - 199 mg/dL ANA Comment: Interpretive Data Fasting glucose >/= 126 mg/dl is diagnostic for diabetes. Fasting is defined as no caloric intake for at least 8 hours. Fasting glucose between 100 mg/dl to 125 mg/dl is diagnostic of prediabetes. In a patient with classic symptoms of hyperglycemia or hyperglycemic crisis, a random glucose >/= 200 mg/dl is diagnostic for diabetes. In the absence of unequivocal hyperglycemia, results should be confirmed by repeat testing. The classification and Diagnosis of Diabetes Diabetes Care 202; 46: S19-S40. Current interpretive data was last revised 2022. Testing performed by: [address] [address] Calcium 8.8 8.5 - 10.3 mg/dL ANA Comment:Testing performed by : [address] [address] Blood 08/28/2024 6:38 AM CDT 08/28/2024 6:45 AM CDT us Kathrine Stephens NP LAB BLOOD ORDERABLES Final Result ANA SPARROW 0179 [facility] Department [place] [address] * eGFR (08/27/2024 6:24 AM CDT) eGFR 84 >=60 mL/min/1. 73 m2 Comment: Interpretive Data Reference Interval Normal >/= 90 mL/min/1.73m2 Mildly decreased* 60 - 89 mL/min/1.73m2 Mildly to moderately decreased 45 - 59 mL/min/1.73m2 Moderately to severely decreased 30 - 44 mL/min/1.73m2 Severely decreased 15 - 29 mL/min/1.73m2 Kidney Failure < 15 mL/min/1.73m2 *Relative to young adult level Estimated glomerular filtration rate is determined by the 2020 CKD-EPI equation recommended by the National Kidney Foundation (A Unifying Approach to GFR Estimation: Recommendations of the NKF-ASK Task Force on Reassessing the Inclusion of Race in Diagnosing Kidney Disease, JASN 2020). The CKD-EPI equation should not be used for patients with unstable renal function and has not been validated in children and those over 70. Current interpretive data was last reviewed 2021. Testing performed by: [address] [address] Blood 08/27/2024 6:24 AM CDT 08/27/2024 6:45 AM CDT us Kathrine Stephens [employer]PER[employer] LAB BLOOD ORDERABLES Final Result ANA 7074 [facility] Department [place] [address] * (ABNORMAL) Differential, auto (08/27/2024 6:24 AM CDT) Neutrophil abs 5.54 1.50 - 6.50 K/cumm Comment:Testing performed by : [address] [address] Imm gran abs 0.13(H) 0.00 - 0.10 K/cumm ANA Comment:Testing performed by : [address] [address] Lymphocyte abs 2.08 0.80 - 3.30 K/cumm ANA Comment:Testing performed by : [address] [address] Monocyte abs 1.05(H) 0.20 - 0.80 K/cumm ANA Comment:Testing performed by : [address] [address] Eosinophil abs 0.60(H) 0.00 - 0.50 K/cumm ANA Comment:Testing performed by : [address], [place]., [address] Basophil abs 0.08 0.00 - 0.10 K/cumm ANA Comment:Testing performed by : [address] [address] Neutrophil pct 58.5 % ANA Comment: Interpretive Data Percent cell count reference ranges are not reported, since discordance with absolute values may lead to misinterpretation of CBC data. Current Interpretive Data was last revised on 2017. Testing performed by: [address] [address] Imm gran pct 1.4 % ANA Comment: Interpretive Data Percent cell count reference ranges are not reported, since discordance with absolute values may lead to misinterpretation of CBC data. Current Interpretive Data was last revised on 2017. Testing performed by: [address] [address] Lymphocyte pct 21.9 % ANA Comment: Interpretive Data Percent cell count reference ranges are not reported, since discordance with absolute values may lead to misinterpretation of CBC data. Current Interpretive Data was last revised on 2017. Testing performed by: [address] [address] Monocyte pct 11.1 % ANA Comment: Interpretive Data Percent cell count reference ranges are not reported, since discordance with absolute values may lead to misinterpretation of CBC data. Current Interpretive Data was last revised on 2017. Testing performed by: [address] [address] Eosinophil pct 6.3 % ANA Comment: Interpretive Data Percent cell count reference ranges are not reported, since discordance with absolute values may lead to misinterpretation of CBC data. Current Interpretive Data was last revised on 2017. Testing performed by: [address] [address] Basophil pct 0.8 % ANA Comment: Interpretive Data Percent cell count reference ranges are not reported, since discordance with absolute values may lead to misinterpretation of CBC data. Current Interpretive Data was last revised on 2017. Testing performed by: [address] [address] Blood 08/27/2024 6:24 AM CDT 08/27/2024 6:46 AM CDT Kathrine Stephens [employer] SUPER[employer]OR LAB BLOOD ORDERABLES Final Result [facility] 4500 [facility] Department of Laboratories [place], [place] [id number] * (ABNORMAL) CBC with auto differential (08/27/2024 6:24 AM CDT) WBC 9.48 3.80 - 9.90 K/cumm Comment:Testing performed by : [address] [address] Hgb 10.3(L) 11.9 - 15.5 g/dL ANA Comment:Testing performed by : [address] [address] Hct 32.0(L) 35.6 - 45.5 % ANA Comment:Testing performed by : [address] [address] Plt 465(H) 150 - 400 K/cumm ANA Comment:Testing performed by : [address] [address] MPV 8.6(L) 9.1 - 12.3 fL ANA Comment:Testing performed by : [address] [address] RBC 3.45(L) 3.90 - 5.20 M/cumm ANA Comment:Testing performed by : [address] [address] MCV 92.8 81.3 - 96.4 fL ANA Comment:Testing performed by : [address] [address] MCH 29.9 27.1 - 33.3 pg ANA SPARROW Comment:Testing performed by : [address] [address] MCHC 32.2(L) 32.3 - 35.7 g/dL ANA SPARROW Comment:Testing performed by : [address] [address] RDW CV 14.9 11.1 - 14.9 % ANA SPARROW Comment:Testing performed by : [address] [address] RDW SD 49.8(H) 35.7 - 48.1 fL ANA SPARROW Comment:Testing performed by : [address] [address] NRBC abs 0.00 0.00 - 0.01 K/cumm ANA Comment:Testing performed by : [address], [address] Blood 08/27/2024 6:24 AM CDT 08/27/2024 6:46 AM CDT us Kathrine Stephens NP LAB BLOOD ORDERABLES Final Result Performing Organization Address [facility]/ZIP Co de Phone Number [address] [employer] [place] [address] * Magnesium (08/27/2024 6:24 AM CDT) Magnesium 1.6 1.4 - 2.5 mg/dL Comment:Testing performed by : [address] [address] Blood 08/27/2024 6:24 AM CDT 08/27/2024 6:45 AM CDT us Lance Acosta MD LAB BLOOD ORDERABLES Jolanta l Result Performing Organization Address City/[facility]/ZIP Co de Phone Number [address] [employer] [place] [address] * Basic metabolic panel (08/27/2024 6:24 AM CDT) Sodium 136 135 - 145 mmol/L Comment:Testing performed by : [address] [address] Potassium, pl 3.8 3.3 - 4.9 mmol/L ANA Comment:Testing performed by : [address], [place]., [address] Chloride 102 97 - 110 mmol/L ANA Comment:Testing performed by : [address], [place]., [address] CO2 25 22 - 32 mmol/L AAN Comment:Testing performed by : [address], [place]., [address] Anion gap 9 2 - 15 mmol/L ANA Comment:Testing performed by : [address], [place]., [address] BUN 8 6 - 25 mg/dL ANA Comment:Testing performed by : [address], [place]., [address] Creatinine 0.69 0.60 - 1.10 mg/dL [facility] Comment:Testing performed by : [address], [place]., [address] Glucose 89 70 - 199 mg/dL [facility] Comment: Interpretive Data Fasting glucose >/= 126 mg/dl is diagnostic for diabetes. Fasting is defined as no caloric intake for at least 8 hours. Fasting glucose between 100 mg/dl to 125 mg/dl is diagnostic of prediabetes. In a patient with classic symptoms of hyperglycemia or hyperglycemic crisis, a random glucose >/= 200 mg/dl is diagnostic for diabetes. In the absence of unequivocal hyperglycemia, results should be confirmed by repeat testing. The classification and Diagnosis of Diabetes Diabetes Care 2021; 46: S19-S40. Current interpretive data was last revised 2022. Testing performed by: [address] [address] Calcium 8.5 8.5 - 10.3 mg/dL ANA Comment:Testing performed by : [address], [place]., [address] Blood 08/27/2024 6:24 AM CDT 08/27/2024 6:45 AM CDT Kathrine Stephens [employer]PER[employer] LAB BLOOD ORDERABLES Final Result Performing Organization Address [facility] Co de Phone Number ANA [address] [place] [address] * eGFR (08/26/2024 5:30 AM CDT) eGFR 76 >=60 mL/min/1. 73 m2 Comment: Interpretive Data Reference Interval Normal >/= 90 mL/min/1.73m2 Mildly decreased* 60 - 89 mL/min/1.73m2 Mildly to moderately decreased 45 - 59 mL/min/1.73m2 Moderately to severely decreased 30 - 44 mL/min/1.73m2 Severely decreased 15 - 29 mL/min/1.73m2 Kidney Failure < 15 mL/min/1.73m2 *Relative to young adult level Estimated glomerular filtration rate is determined by the 2020 CKD-EPI equation recommended by the National Kidney Foundation (A Unifying Approach to GFR Estimation: Recommendations of the NKF-ASK Task Force on Reassessing the Inclusion of Race in Diagnosing Kidney Disease, JASN 2020). The CKD-EPI equation should not be used for patients with unstable renal function and has not been validated in children and those over 70. Current interpretive data was last reviewed 2021. Testing performed by: [address] [address] Blood 08/26/2024 5:30 AM CDT 08/26/2024 6:22 AM CDT Kathrine Stephens [employer]PER[employer]OR LAB BLOOD ORDERABLES Final Result Performing Organization Address City/[facility]/ZIP Co de Phone Number ANA [address] [employer] [place] [address] * (ABNORMAL) Differential, auto (08/26/2024 5:30 AM CDT) Neutrophil abs 10.37(H) 1.50 - 6.50 K/cumm Comment:Testing performed by : [address] [address] Imm gran abs 0.13(H) 0.00 - 0.10 K/cumm [facility] Comment:Testing performed by : [address] [address] Lymphocyte abs 2.97 0.80 - 3.30 K/cumm [facility] Comment:Testing performed by : [address], [place]., [address] Monocyte abs 1.24(H) 0.20 - 0.80 K/cumm [facility] Comment:Testing performed by : [address], [place]., [address] Eosinophil abs 0.39 0.00 - 0.50 K/cumm [facility] Comment:Testing performed by : [address], [place]., [address] Basophil abs 0.07 0.00 - 0.10 K/cumm [facility] Comment:Testing performed by : [address] [address] Neutrophil pct 68.2 % [facility] Comment: Interpretive Data Percent cell count reference ranges are not reported, since discordance with absolute values may lead to misinterpretation of CBC data. Current Interpretive Data was last revised on 2017. Testing performed by: [address] [address] Imm gran pct 0.9 % [facility] Comment: Interpretive Data Percent cell count reference ranges are not reported, since discordance with absolute values may lead to misinterpretation of CBC data. Current Interpretive Data was last revised on 2017. Testing performed by: [address] [address] Lymphocyte pct 19.6 % [facility] Comment: Interpretive Data Percent cell count reference ranges are not reported, since discordance with absolute values may lead to misinterpretation of CBC data. Current Interpretive Data was last revised on 2017. Testing performed by: [address] [address] Monocyte pct 8.2 % [facility] Comment: Interpretive Data Percent cell count reference ranges are not reported, since discordance with absolute values may lead to misinterpretation of CBC data. Current Interpretive Data was last revised on 2017. Testing performed by: [address] [address] Eosinophil pct 2.6 % ANA Comment: Interpretive Data Percent cell count reference ranges are not reported, since discordance with absolute values may lead to misinterpretation of CBC data. Current Interpretive Data was last revised on 2017. Testing performed by: [address] [address] Basophil pct 0.5 % ANA Comment: Interpretive Data Percent cell count reference ranges are not reported, since discordance with absolute values may lead to misinterpretation of CBC data. Current Interpretive Data was last revised on 2017. Testing performed by: [address] [address] Blood 08/26/2024 5:30 AM CDT 08/26/2024 6:22 AM CDT Kathrine Stephens [employer]PER[employer]OR LAB BLOOD ORDERABLES Final Result [facility] [address] [facility] Department of Laboratories [place], [place] [id number] * (ABNORMAL) CBC with auto differential (08/26/2024 5:30 AM CDT) WBC 15.17(H) 3.80 - 9.90 K/cumm Comment:Testing performed by : [address] [address] Hgb 10.9(L) 11.9 - 15.5 g/dL ANA Comment:Testing performed by : [address] [address] Hct 33.1(L) 35.6 - 45.5 % ANA Comment:Testing performed by : [address] [address] Plt 481(H) 150 - 400 K/cumm ANA [facility] Comment:Testing performed by : [address] [address] MPV 9.0(L) 9.1 - 12.3 fL ANA Comment:Testing performed by : [address] [address] RBC 3.56(L) 3.90 - 5.20 M/cumm ANA [facility] Comment:Testing performed by : [address] [address] MCV 93.0 81.3 - 96.4 fL ANA Comment:Testing performed by : [address] [address] MCH 30.6 27.1 - 33.3 pg ANA Comment:Testing performed by : [address] [address] MCHC 32.9 32.3 - 35.7 g/dL ANA Comment:Testing performed by : [address] [address] RDW CV 14.5 11.1 - 14.9 % ANA Comment:Testing performed by : [address] [address] RDW SD 49.5(H) 35.7 - 48.1 fL ANA Comment:Testing performed by : [address] [address] NRBC abs 0.00 0.00 - 0.01 K/cumm ANA Comment:Testing performed by : [address] [address] Blood 08/26/2024 5:30 AM CDT 08/26/2024 6:22 AM CDT Kathrine Stephens NP LAB BLOOD ORDERABLES Final Result ANA [address] [facility] Department [place] [address] * Magnesium (08/26/2024 5:30 AM CDT) [facility] Magnesium 1.6 1.4 - 2.5 mg/dL Comment:Testing performed by : [address] [address] Blood 08/26/2024 5:30 AM CDT 08/26/2024 6:22 AM CDT us Lance Acosta MD LAB BLOOD ORDERABLES Jolanta malin Result [facility] [address] [facility] Department [place] [address] * Basic metabolic panel (08/26/2024 5:30 AM CDT) Sodium 138 135 - 145 mmol/L Comment:Testing performed by : [address] [address] Potassium, pl 3.5 3.3 - 4.9 mmol/L ANA Comment:Testing performed by : [address] [address] Chloride 104 97 - 110 mmol/L ANA Comment:Testing performed by : [address] [address] CO2 22 22 - 32 mmol/L ANA Comment:Testing performed by : [address] [address] Anion gap 12 2 - 15 mmol/L ANA Comment:Testing performed by : [address] [address] BUN 6 6 - 25 mg/dL ANA Comment:Testing performed by : [address] [address] Creatinine 0.76 0.60 - 1.10 mg/dL ANA Comment:Testing performed by : [address] [address] Glucose 82 70 - 199 mg/dL ANA Comment: Interpretive Data Fasting glucose >/= 126 mg/dl is diagnostic for diabetes. Fasting is defined as no caloric intake for at least 8 hours. Fasting glucose between 100 mg/dl to 125 mg/dl is diagnostic of prediabetes. In a patient with classic symptoms of hyperglycemia or hyperglycemic crisis, a random glucose >/= 200 mg/dl is diagnostic for diabetes. In the absence of unequivocal hyperglycemia, results should be confirmed by repeat testing. The classification and Diagnosis of Diabetes Diabetes Care 202; 46: S19-S40. Current interpretive data was last revised 2022. Testing performed by: [facility], [address] [place] [address]., [address] Calcium 8.5 8.5 - 10.3 mg/dL ANA [facility] Comment:Testing performed by : [address] [address] Blood 08/26/2024 5:30 AM CDT 08/26/2024 6:22 AM CDT Kathrine Stephens NP LAB BLOOD ORDERABLES Final Result [facility] [address] [facility] Department [place] [address] * eGFR (08/25/2024 6:00 AM CDT) eGFR 77 >=60 mL/min/1. 73 m2 Comment: Interpretive Data Reference Interval Normal >/= 90 mL/min/1.73m2 Mildly decreased* 60 - 89 mL/min/1.73m2 Mildly to moderately decreased 45 - 59 mL/min/1.73m2 Moderately to severely decreased 30 - 44 mL/min/1.73m2 Severely decreased 15 - 29 mL/min/1.73m2 Kidney Failure < 15 mL/min/1.73m2 *Relative to young adult level Estimated glomerular filtration rate is determined by the 2020 CKD-EPI equation recommended by the National Kidney Foundation (A Unifying Approach to GFR Estimation: Recommendations of the NKF-ASK Task Force on Reassessing the Inclusion of Race in Diagnosing Kidney Disease, JASN 2020). The CKD-EPI equation should not be used for patients with unstable renal function and has not been validated in children and those over 70. Current interpretive data was last reviewed 2021. Testing performed by: [address] [address] Blood 08/25/2024 6:00 AM CDT 08/25/2024 6:38 AM CDT Kathrine Diaz Stephens [employer]PER[employer]OR LAB BLOOD ORDERABLES Final Result ANA [address] [facility] Department [place] [address] * (ABNORMAL) Differential, auto (08/25/2024 6:00 AM CDT) Neutrophil abs 5.57 1.50 - 6.50 K/cumm Comment:Testing performed by : [address] [address] Imm gran abs 0.09 0.00 - 0.10 K/cumm ANA Comment:Testing performed by : [address] [address] Lymphocyte abs 2.21 0.80 - 3.30 K/cumm ANA Comment:Testing performed by : [address] [address] Monocyte abs 0.82(H) 0.20 - 0.80 K/cumm ANA Comment:Testing performed by : [address] [address] Eosinophil abs 0.60(H) 0.00 - 0.50 K/cumm ANA Comment:Testing performed by : [address] [address] Basophil abs 0.07 0.00 - 0.10 K/cumm ANA Comment:Testing performed by : [address] [address] Neutrophil pct 59.5 % ANA Comment: Interpretive Data Percent cell count reference ranges are not reported, since discordance with absolute values may lead to misinterpretation of CBC data. Current Interpretive Data was last revised on 2017. Testing performed by: [address] [address] Imm gran pct 1.0 % ANA Comment: Interpretive Data Percent cell count reference ranges are not reported, since discordance with absolute values may lead to misinterpretation of CBC data. Current Interpretive Data was last revised on 2017. Testing performed by: [address] [address] Lymphocyte pct 23.6 % [facility] Comment: Interpretive Data Percent cell count reference ranges are not reported, since discordance with absolute values may lead to misinterpretation of CBC data. Current Interpretive Data was last revised on 2017. Testing performed by: [address] [address] Monocyte pct 8.8 % [facility] Comment: Interpretive Data Percent cell count reference ranges are not reported, since discordance with absolute values may lead to misinterpretation of CBC data. Current Interpretive Data was last revised on 2017. Testing performed by: [address] [address] Eosinophil pct 6.4 % [facility] Comment: Interpretive Data Percent cell count reference ranges are not reported, since discordance with absolute values may lead to misinterpretation of CBC data. Current Interpretive Data was last revised on 2017. Testing performed by: [address] [address] Basophil pct 0.7 % [facility] Comment: Interpretive Data Percent cell count reference ranges are not reported, since discordance with absolute values may lead to misinterpretation of CBC data. Current Interpretive Data was last revised on 2017. Testing performed by: [address] [address] Blood 08/25/2024 6:00 AM CDT 08/25/2024 6:38 AM CDT Kathrine Stephens NP LAB BLOOD ORDERABLES Final Result [facility] [address] [facility] Department [place] [address] * (ABNORMAL) CBC with auto differential (08/25/2024 6:00 AM CDT) Pathologist [facility] WBC 9.36 3.80 - 9.90 K/cumm Comment:Testing performed by : [address] [address] Hgb 12.0 11.9 - 15.5 g/dL ANA Comment:Testing performed by : [address] [address] Hct 36.2 35.6 - 45.5 % ANA Comment:Testing performed by : [address] [address] Plt 529(H) 150 - 400 K/cumm ANA Comment:Testing performed by : [address] [address] MPV 8.8(L) 9.1 - 12.3 fL ANA Comment:Testing performed by : [address], [address] RBC 3.92 3.90 - 5.20 M/cumm ANA Comment:Testing performed by : [address] [address] MCV 92.3 81.3 - 96.4 fL ANA Comment:Testing performed by : [address] [address] MCH 30.6 27.1 - 33.3 pg ANA Comment:Testing performed by : [address] [address] MCHC 33.1 32.3 - 35.7 g/dL ANA Comment:Testing performed by : [address] [address] RDW CV 14.2 11.1 - 14.9 % ANA Comment:Testing performed by : [address] [address] RDW SD 48.1 35.7 - 48.1 fL ANA Comment:Testing performed by : [address] [address] NRBC abs 0.00 0.00 - 0.01 K/cumm ANA Comment:Testing performed by : [address] [address] Blood 08/25/2024 6:00 AM CDT 08/25/2024 6:38 AM CDT us Kathrine Stephens NP LAB BLOOD ORDERABLES Final Result Performing Organization Address City/[facility] Co de Phone Number [address] [address] * Magnesium (08/25/2024 6:00 AM CDT) Pathologist [facility] Magnesium 1.5 1.4 - 2.5 mg/dL Comment:Testing performed by : [address] [address] Blood 08/25/2024 6:00 AM CDT 08/25/2024 6:38 AM CDT us Lance Acosta MD LAB BLOOD ORDERABLES Jolanta l Result Performing Organization Address [facility] Co de Phone Number [address] [place] [address] * (ABNORMAL) Basic metabolic panel (08/25/2024 6:00 AM CDT) Pathologist [facility] Sodium 138 135 - 145 mmol/L Comment:Testing performed by : [address] [address] Potassium, pl 2.9(L) 3.3 - 4.9 mmol/L ANA Comment:Testing performed by : [address] [address] Chloride 102 97 - 110 mmol/L ANA Comment:Testing performed by : [address] [address] CO2 22 22 - 32 mmol/L ANA Comment:Testing performed by : [address] [address] Anion gap 14 2 - 15 mmol/L ANA Comment:Testing performed by : [address] [address] BUN 4(L) 6 - 25 mg/dL ANA Comment:Testing performed by : [address] [address] Creatinine 0.75 0.60 - 1.10 mg/dL ANA [facility] Comment:Testing performed by : [address] [address] Glucose 76 70 - 199 mg/dL ANA Comment: Interpretive Data Fasting glucose >/= 126 mg/dl is diagnostic for diabetes. Fasting is defined as no caloric intake for at least 8 hours. Fasting glucose between 100 mg/dl to 125 mg/dl is diagnostic of prediabetes. In a patient with classic symptoms of hyperglycemia or hyperglycemic crisis, a random glucose >/= 200 mg/dl is diagnostic for diabetes. In the absence of unequivocal hyperglycemia, results should be confirmed by repeat testing. The classification and Diagnosis of Diabetes Diabetes Care 202; 46: S19-S40. Current interpretive data was last revised 2022. Testing performed by: [address] [address] Calcium 8.6 8.5 - 10.3 mg/dL ANA Comment:Testing performed by : [address] [address] Blood 08/25/2024 6:00 AM CDT 08/25/2024 6:38 AM CDT us Kathrine Stephens NP LAB BLOOD ORDERABLES Final Result [facility] [address] [facility] Department [place] [address] * eGFR (08/24/2024 5:14 AM CDT) eGFR 65 >=60 mL/min/1. 73 m2 Comment: Interpretive Data Reference Interval Normal >/= 90 mL/min/1.73m2 Mildly decreased* 60 - 89 mL/min/1.73m2 Mildly to moderately decreased 45 - 59 mL/min/1.73m2 Moderately to severely decreased 30 - 44 mL/min/1.73m2 Severely decreased 15 - 29 mL/min/1.73m2 Kidney Failure < 15 mL/min/1.73m2 *Relative to young adult level Estimated glomerular filtration rate is determined by the 2020 CKD-EPI equation recommended by the National Kidney Foundation (A Unifying Approach to GFR Estimation: Recommendations of the NKF-ASK Task Force on Reassessing the Inclusion of Race in Diagnosing Kidney Disease, JASN 202). The CKD-EPI equation should not be used for patients with unstable renal function and has not been validated in children and those over 70. Current interpretive data was last reviewed 2021. Testing performed by: [address] [address] Blood 08/24/2024 5:14 AM CDT 08/24/2024 5:44 AM CDT Kathrine Stephens [employer] SUPER[employer] LAB BLOOD ORDERABLES Final Result ANA [facility]5 [facility] Department [place] [address] * (ABNORMAL) Differential, auto (08/24/2024 5:14 AM CDT) Neutrophil abs 6.77(H) 1.50 - 6.50 K/cumm Comment:Testing performed by : [address] [address] Imm gran abs 0.23(H) 0.00 - 0.10 K/cumm ANA Comment:Testing performed by : [address] [address] Lymphocyte abs 3.56(H) 0.80 - 3.30 K/cumm ANA Comment:Testing performed by : [address] [address] Monocyte abs 1.15(H) 0.20 - 0.80 K/cumm ANA Comment:Testing performed by : [address] [address] Eosinophil abs 0.50 0.00 - 0.50 K/cumm ANA Comment:Testing performed by : [address] [address] Basophil abs 0.11(H) 0.00 - 0.10 K/cumm ANA Comment:Testing performed by : [address] [address] Neutrophil pct 54.9 % [facility] Comment: Interpretive Data Percent cell count reference ranges are not reported, since discordance with absolute values may lead to misinterpretation of CBC data. Current Interpretive Data was last revised on 2017. Testing performed by: [address] [address] Imm gran pct 1.9 % [facility] Comment: Interpretive Data Percent cell count reference ranges are not reported, since discordance with absolute values may lead to misinterpretation of CBC data. Current Interpretive Data was last revised on 2017. Testing performed by: [address] [address] Lymphocyte pct 28.9 % [facility] Comment: Interpretive Data Percent cell count reference ranges are not reported, since discordance with absolute values may lead to misinterpretation of CBC data. Current Interpretive Data was last revised on 2017. Testing performed by: [address] [address] Monocyte pct 9.3 % [facility] Comment: Interpretive Data Percent cell count reference ranges are not reported, since discordance with absolute values may lead to misinterpretation of CBC data. Current Interpretive Data was last revised on 2017. Testing performed by: [address] [address] Eosinophil pct 4.1 % [facility] Comment: Interpretive Data Percent cell count reference ranges are not reported, since discordance with absolute values may lead to misinterpretation of CBC data. Current Interpretive Data was last revised on 2017. Testing performed by: [address] [address] Basophil pct 0.9 % [facility] Comment: Interpretive Data Percent cell count reference ranges are not reported, since discordance with absolute values may lead to misinterpretation of CBC data. Current Interpretive Data was last revised on 2017. Testing performed by: [address] [address] Blood 08/24/2024 5:14 AM CDT 08/24/2024 5:44 AM CDT [facility] [employer]ATING [employer] SUPER[employer]OR LAB BLOOD ORDERABLES Final Result [facility] [address] [facility] Department [place] [address] * (ABNORMAL) CBC with auto differential (08/24/2024 5:14 AM CDT) WBC 12.32(H) 3.80 - 9.90 K/cumm Comment:Testing performed by : [address] [address] Hgb 11.8(L) 11.9 - 15.5 g/dL ANA Comment:Testing performed by : [address] [address] Hct 36.6 35.6 - 45.5 % ANA Comment:Testing performed by : [address] [address] Plt 574(H) 150 - 400 K/cumm ANA Comment:Testing performed by : [address] [address] MPV 8.7(L) 9.1 - 12.3 fL NAA Comment:Testing performed by : [address] [address] RBC 3.89(L) 3.90 - 5.20 M/cumm ANA Comment:Testing performed by : [address] [address] MCV 94.1 81.3 - 96.4 fL ANA Comment:Testing performed by : [address] [address] MCH 30.3 27.1 - 33.3 pg ANA Comment:Testing performed by : [address] [address] MCHC 32.2(L) 32.3 - 35.7 g/dL ANA Comment:Testing performed by : [address], [address] RDW CV 14.6 11.1 - 14.9 % ANA Comment:Testing performed by : [address] [address] RDW SD 50.3(H) 35.7 - 48.1 fL ANA SPARROW Comment:Testing performed by : [address] [address] NRBC abs 0.00 0.00 - 0.01 K/cumm ANA [facility] Comment:Testing performed by : [address] [address] Blood 08/24/2024 5:14 AM CDT 08/24/2024 5:44 AM CDT Kathrine Stephens NP LAB BLOOD ORDERABLES Final Result ANA [facility] [address] [facility] Department [place] [address] * Basic metabolic panel (08/24/2024 5:14 AM CDT) Sodium 140 135 - 145 mmol/L Comment:Testing performed by : [address] [address] Potassium, pl 3.4 3.3 - 4.9 mmol/L ANA [facility] Comment:Testing performed by : [address] [address] Chloride 104 97 - 110 mmol/L ANA Comment:Testing performed by : [address] [address] CO2 25 22 - 32 mmol/L ANA Comment:Testing performed by : [address] [address] Anion gap 11 2 - 15 mmol/L ANA Comment:Testing performed by : [address] [address] BUN 6 6 - 25 mg/dL ANA Comment:Testing performed by : [address] [address] Creatinine 0.86 0.60 - 1.10 mg/dL ANA SPARROW Comment:Testing performed by : [address] [address] Glucose 84 70 - 199 mg/dL ANA Comment: Interpretive Data Fasting glucose >/= 126 mg/dl is diagnostic for diabetes. Fasting is defined as no caloric intake for at least 8 hours. Fasting glucose between 100 mg/dl to 125 mg/dl is diagnostic of prediabetes. In a patient with classic symptoms of hyperglycemia or hyperglycemic crisis, a random glucose >/= 200 mg/dl is diagnostic for diabetes. In the absence of unequivocal hyperglycemia, results should be confirmed by repeat testing. The classification and Diagnosis of Diabetes Diabetes Care 2021; 46: S19-S40. Current interpretive data was last revised 2022. Testing performed by: [address] [address] Calcium 8.8 8.5 - 10.3 mg/dL ANA Comment:Testing performed by : [address] [address] Blood 08/24/2024 5:14 AM CDT 08/24/2024 5:44 AM CDT us Kathrine Stephens NP LAB BLOOD ORDERABLES Final Result Performing Organization Address City/[facility]/ZIP Co de Phone Number [address] [place] [address] * POCT glucose (08/23/2024 4:42 PM CDT) [facility] Glucose, POC 131 70 - 199 mg/dL Comment:Testing performed by : [address] [address] Blood 08/23/2024 4:42 PM CDT 08/23/2024 4:42 PM CDT Obed Murillo MD LAB POCT ORDERABLES - DEVICE Final Result [address] [place] [address] * POCT glucose (08/23/2024 1:16 PM CDT) Glucose, POC 107 70 - 199 mg/dL Comment:Testing performed by : [address] [address] Blood 08/23/2024 1:16 PM CDT 08/23/2024 1:16 PM CDT Obed Murillo MD LAB POCT ORDERABLES - DEVICE Final Result Performing Organization Address City/[facility]/ZIP Co de Phone Number ANA [address] [place] [address] * eGFR (08/23/2024 8:15 AM CDT) [facility] eGFR 85 >=60 mL/min/1. 73 m2 Comment: Interpretive Data Reference Interval Normal >/= 90 mL/min/1.73m2 Mildly decreased* 60 - 89 mL/min/1.73m2 Mildly to moderately decreased 45 - 59 mL/min/1.73m2 Moderately to severely decreased 30 - 44 mL/min/1.73m2 Severely decreased 15 - 29 mL/min/1.73m2 Kidney Failure < 15 mL/min/1.73m2 *Relative to young adult level Estimated glomerular filtration rate is determined by the 2020 CKD-EPI equation recommended by the National Kidney Foundation (A Unifying Approach to GFR Estimation: Recommendations of the NKF-ASK Task Force on Reassessing the Inclusion of Race in Diagnosing Kidney Disease, JASN 2020). The CKD-EPI equation should not be used for patients with unstable renal function and has not been validated in children and those over 70. Current interpretive data was last reviewed 2021. Testing performed by: [facility], [address] [place] [address]., [address] Blood 08/23/2024 8:15 AM CDT 08/23/2024 8:30 AM CDT us Kathrine Stephens NP LAB BLOOD ORDERABLES Final Result Performing Organization Address City/[facility]/ZIP Co de Phone Number ANA [address] [place] [address] * (ABNORMAL) Differential, auto (08/23/2024 8:15 AM CDT) Neutrophil abs 8.60(H) 1.50 - 6.50 K/cumm Comment:Testing performed by : [address] [address] Imm gran abs 0.17(H) 0.00 - 0.10 K/cumm ANA Comment:Testing performed by : [address] [address] Lymphocyte abs 1.52 0.80 - 3.30 K/cumm [facility] Comment:Testing performed by : [address] [address] Monocyte abs 1.32(H) 0.20 - 0.80 K/cumm [facility] Comment:Testing performed by : [address] [address] Eosinophil abs 0.57(H) 0.00 - 0.50 K/cumm [facility] Comment:Testing performed by : [address] [address] Basophil abs 0.08 0.00 - 0.10 K/cumm [facility] Comment:Testing performed by : [address] [address] Neutrophil pct 70.1 % [facility] Comment: Interpretive Data Percent cell count reference ranges are not reported, since discordance with absolute values may lead to misinterpretation of CBC data. Current Interpretive Data was last revised on 2017. Testing performed by: [address] [address] Imm gran pct 1.4 % [facility] Comment: Interpretive Data Percent cell count reference ranges are not reported, since discordance with absolute values may lead to misinterpretation of CBC data. Current Interpretive Data was last revised on 2017. Testing performed by: [address] [address] Lymphocyte pct 12.4 % [facility] Comment: Interpretive Data Percent cell count reference ranges are not reported, since discordance with absolute values may lead to misinterpretation of CBC data. Current Interpretive Data was last revised on 2017. Testing performed by: [address] [address] Monocyte pct 10.8 % ANA Comment: Interpretive Data Percent cell count reference ranges are not reported, since discordance with absolute values may lead to misinterpretation of CBC data. Current Interpretive Data was last revised on 2017. Testing performed by: [address] [address] Eosinophil pct 4.6 % ANA Comment: Interpretive Data Percent cell count reference ranges are not reported, since discordance with absolute values may lead to misinterpretation of CBC data. Current Interpretive Data was last revised on 2017. Testing performed by: [address] [address] Basophil pct 0.7 % ANA Comment: Interpretive Data Percent cell count reference ranges are not reported, since discordance with absolute values may lead to misinterpretation of CBC data. Current Interpretive Data was last revised on 2017. Testing performed by: [address] [address] Blood 08/23/2024 8:15 AM CDT 08/23/2024 8:30 AM CDT us Kathrine Stephens [employer] LAB BLOOD ORDERABLES Final Result [facility] 1317 [facility] Department [place] [address] * (ABNORMAL) CBC with auto differential (08/23/2024 8:15 AM CDT) WBC 12.26(H) 3.80 - 9.90 K/cumm Comment:Testing performed by : [address] [address] Hgb 12.5 11.9 - 15.5 g/dL ANA SPARROW Comment:Testing performed by : [address] [address] Hct 37.9 35.6 - 45.5 % ANA Comment:Testing performed by : [address] [address] Plt 561(H) 150 - 400 K/cumm ANA SPARROW Comment:Testing performed by : [address] [address] MPV 8.5(L) 9.1 - 12.3 fL ANA SPRAROW Comment:Testing performed by : [address] [address] RBC 4.08 3.90 - 5.20 M/cumm ANA SPARROW Comment:Testing performed by : [address] [address] MCV 92.9 81.3 - 96.4 fL ANA SPARROW Comment:Testing performed by : [address] [address] MCH 30.6 27.1 - 33.3 pg ANA SPARROW Comment:Testing performed by : [address] [address] MCHC 33.0 32.3 - 35.7 g/dL ANA SPARROW Comment:Testing performed by : [address] [address] RDW CV 14.7 11.1 - 14.9 % ANA SPARROW Comment:Testing performed by : [address] [address] RDW SD 50.3(H) 35.7 - 48.1 fL ANA SPARROW Comment:Testing performed by : [address] [address] NRBC abs 0.00 0.00 - 0.01 K/cumm ANA SPARROW Comment:Testing performed by : [address] [address] Blood 08/23/2024 8:15 AM CDT 08/23/2024 8:30 AM CDT us Kathrine Stephens NP LAB BLOOD ORDERABLES Final Result ANA 7018 [facility] Department [place] [address] * (ABNORMAL) Basic metabolic panel (08/23/2024 8:15 AM CDT) Sodium 138 135 - 145 mmol/L Comment:Testing performed by : [address] [address] Potassium, pl 3.3 3.3 - 4.9 mmol/L ANA Comment:Testing performed by : [address] [address] Chloride 102 97 - 110 mmol/L ANA Comment:Testing performed by : [address] [address] CO2 25 22 - 32 mmol/L ANA Comment:Testing performed by : [address] [address] Anion gap 11 2 - 15 mmol/L ANA Comment:Testing performed by : [address] [address] BUN 3(L) 6 - 25 mg/dL ANA Comment:Testing performed by : [address] [address] Creatinine 0.64 0.60 - 1.10 mg/dL ANA Comment:Testing performed by : [address] [address] Glucose 95 70 - 199 mg/dL ANA Comment: Interpretive Data Fasting glucose >/= 126 mg/dl is diagnostic for diabetes. Fasting is defined as no caloric intake for at least 8 hours. Fasting glucose between 100 mg/dl to 125 mg/dl is diagnostic of prediabetes. In a patient with classic symptoms of hyperglycemia or hyperglycemic crisis, a random glucose >/= 200 mg/dl is diagnostic for diabetes. In the absence of unequivocal hyperglycemia, results should be confirmed by repeat testing. The classification and Diagnosis of Diabetes Diabetes Care 2021; 46: S19-S40. Current interpretive data was last revised 2022. Testing performed by: [address] [address] Calcium 8.7 8.5 - 10.3 mg/dL ANA Comment:Testing performed by : [address] [address] Blood 08/23/2024 8:15 AM CDT 08/23/2024 8:30 AM CDT Kathrine Stephens NP LAB BLOOD ORDERABLES Final Result Performing Organization Address [facility] Co de Phone Number ANA [address] [address] * POCT glucose (08/22/2024 8:39 PM CDT) Glucose, POC 145 70 - 199 mg/dL Comment:Testing performed by : [address] [address] Glucose comment 1 RN/MD Notified ANA Comment:Testing performed by : [address] [address] Blood 08/22/2024 8:39 PM CDT 08/22/2024 8:39 PM CDT Obed Murillo MD LAB POCT ORDERABLES - DEVICE Final Result Performing Organization Address [facility] Co de Phone Number ANA [address] [address] * POCT glucose (08/22/2024 8:19 AM CDT) Glucose, POC 100 70 - 199 mg/dL Comment:Testing performed by : [address] [address] Glucose comment 1 Will Repeat Test ANA SPARROW Comment:Testing performed by : [address] [address] Glucose comment 2 RN/MD Notified ANA Comment:Testing performed by : [address] [address] Blood 08/22/2024 8:19 AM CDT 08/22/2024 8:19 AM CDT us Jhony Ruiz MD LAB POCT ORDERABLES - DEVICE Final Result Performing Organization Address [facility] Co de Phone Number ANA [address] [place] [address] * eGFR (08/22/2024 4:40 AM CDT) eGFR 85 >=60 mL/min/1. 73 m2 Comment: Interpretive Data Reference Interval Normal >/= 90 mL/min/1.73m2 Mildly decreased* 60 - 89 mL/min/1.73m2 Mildly to moderately decreased 45 - 59 mL/min/1.73m2 Moderately to severely decreased 30 - 44 mL/min/1.73m2 Severely decreased 15 - 29 mL/min/1.73m2 Kidney Failure < 15 mL/min/1.73m2 *Relative to young adult level Estimated glomerular filtration rate is determined by the 2020 CKD-EPI equation recommended by the National Kidney Foundation (A Unifying Approach to GFR Estimation: Recommendations of the NKF-ASK Task Force on Reassessing the Inclusion of Race in Diagnosing Kidney Disease, JASN 2020). The CKD-EPI equation should not be used for patients with unstable renal function and has not been validated in children and those over 70. Current interpretive data was last reviewed 2021. Testing performed by: [address] [address] Blood 08/22/2024 4:40 AM CDT 08/22/2024 5:21 AM CDT Mathew Renner MD LAB BLOOD ORDERABLES Final R esult Performing Organization Address City/[facility]/ZIP Co de Phone Number ANA [facility] [place] [address] * (ABNORMAL) Differential, auto (08/22/2024 4:40 AM CDT) Neutrophil abs 6.26 1.50 - 6.50 K/cumm Comment:Testing performed by : [address] [address] Imm gran abs 0.22(H) 0.00 - 0.10 K/cumm ANA Comment:Testing performed by : [address], [place]., [address] Lymphocyte abs 1.94 0.80 - 3.30 K/cumm ANA Comment:Testing performed by : [address], [place]., [address] Monocyte abs 1.44(H) 0.20 - 0.80 K/cumm ANA Comment:Testing performed by : [address], [place]., [address] Eosinophil abs 0.55(H) 0.00 - 0.50 K/cumm [facility] Comment:Testing performed by : [address], [place]., [address] Basophil abs 0.08 0.00 - 0.10 K/cumm [facility] Comment:Testing performed by : [address] [address] Neutrophil pct 59.7 % [facility] Comment: Interpretive Data Percent cell count reference ranges are not reported, since discordance with absolute values may lead to misinterpretation of CBC data. Current Interpretive Data was last revised on 2017. Testing performed by: [address] [address] Imm gran pct 2.1 % [facility] Comment: Interpretive Data Percent cell count reference ranges are not reported, since discordance with absolute values may lead to misinterpretation of CBC data. Current Interpretive Data was last revised on 2017. Testing performed by: [address] [address] Lymphocyte pct 18.5 % [facility] Comment: Interpretive Data Percent cell count reference ranges are not reported, since discordance with absolute values may lead to misinterpretation of CBC data. Current Interpretive Data was last revised on 2017. Testing performed by: [address] [address] Monocyte pct 13.7 % [facility] Comment: Interpretive Data Percent cell count reference ranges are not reported, since discordance with absolute values may lead to misinterpretation of CBC data. Current Interpretive Data was last revised on 2017. Testing performed by: [address] [address] Eosinophil pct 5.2 % ANA SPARROW Comment: Interpretive Data Percent cell count reference ranges are not reported, since discordance with absolute values may lead to misinterpretation of CBC data. Current Interpretive Data was last revised on 2017. Testing performed by: [address] [address] Basophil pct 0.8 % ANA SPARROW Comment: Interpretive Data Percent cell count reference ranges are not reported, since discordance with absolute values may lead to misinterpretation of CBC data. Current Interpretive Data was last revised on 2017. Testing performed by: [address] [address] Blood 08/22/2024 4:40 AM CDT 08/22/2024 5:21 AM CDT Kathrine Stephens NP LAB BLOOD ORDERABLES Final Result ANA [facility] Department [place] [address] * (ABNORMAL) CBC with auto differential (08/22/2024 4:40 AM CDT) WBC 10.49(H) 3.80 - 9.90 K/cumm Comment:Testing performed by : [address] [address] Hgb 10.6(L) 11.9 - 15.5 g/dL ANA SPARROW Comment:Testing performed by : [address] [address] Hct 32.7(L) 35.6 - 45.5 % ANA SPARROW Comment:Testing performed by : [address] [address] Plt 539(H) 150 - 400 K/cumm ANA SPARROW Comment:Testing performed by : [address] [address] MPV 8.7(L) 9.1 - 12.3 fL ANA SPARROW Comment:Testing performed by : [address] [address] RBC 3.52(L) 3.90 - 5.20 M/cumm ANA SPARROW Comment:Testing performed by : [address] [address] MCV 92.9 81.3 - 96.4 fL ANA Comment:Testing performed by : [address] [address] MCH 30.1 27.1 - 33.3 pg ANA Comment:Testing performed by : [address] [address] MCHC 32.4 32.3 - 35.7 g/dL ANA Comment:Testing performed by : [address] [address] RDW CV 14.7 11.1 - 14.9 % ANA Comment:Testing performed by : [address], [address] RDW SD 50.4(H) 35.7 - 48.1 fL ANA Comment:Testing performed by : [address] [address] NRBC abs 0.00 0.00 - 0.01 K/cumm ANA Comment:Testing performed by : [address] [address] Blood 08/22/2024 4:40 AM CDT 08/22/2024 5:21 AM CDT Kathrine Stephens NP LAB BLOOD ORDERABLES Final Result [facility] 7757 [facility] Department [place] [address] * Phosphorus (08/22/2024 4:40 AM CDT) [facility] Phosphorus, pl 2.6 2.3 - 4.5 mg/dL Comment:Testing performed by : [address], [address] Blood 08/22/2024 4:40 AM CDT 08/22/2024 5:21 AM CDT Kathrine Stephens NP LAB BLOOD ORDERABLES Final Result SELVINDAVID 7180 [facility] Department [place] [address] * (ABNORMAL) Comprehensive metabolic panel (08/22/2024 4:40 AM CDT) Sodium 136 135 - 145 mmol/L Comment:Testing performed by : [address] [address] Potassium, pl 2.9(L) 3.3 - 4.9 mmol/L ANA Comment:Testing performed by : [address] [address] Chloride 103 97 - 110 mmol/L ANA Comment:Testing performed by : [address] [address] CO2 23 22 - 32 mmol/L ANA Comment:Testing performed by : [address] [address] Anion gap 10 2 - 15 mmol/L ANA Comment:Testing performed by : [address] [address] BUN 5(L) 6 - 25 mg/dL ANA Comment:Testing performed by : [address] [address] Creatinine 0.66 0.60 - 1.10 mg/dL ANA Comment:Testing performed by : [address] [address] Glucose 102 70 - 199 mg/dL ANA Comment: Interpretive Data Fasting glucose >/= 126 mg/dl is diagnostic for diabetes. Fasting is defined as no caloric intake for at least 8 hours. Fasting glucose between 100 mg/dl to 125 mg/dl is diagnostic of prediabetes. In a patient with classic symptoms of hyperglycemia or hyperglycemic crisis, a random glucose >/= 200 mg/dl is diagnostic for diabetes. In the absence of unequivocal hyperglycemia, results should be confirmed by repeat testing. The classification and Diagnosis of Diabetes Diabetes Care 202; 46: S19-S40. Current interpretive data was last revised 2022. Testing performed by: [address] [address] Calcium 8.3(L) 8.5 - 10.3 mg/dL ANA Comment:Testing performed by : [address] [address] Bilirubin, total 0.6 0.1 - 1.2 mg/dL ANA Comment:Testing performed by : [address] [address] Protein, pl 6.3(L) 6.5 - 8.5 g/dL ANA Comment:Testing performed by : [address] [address] Albumin 3.1(L) 3.5 - 5.0 g/dL ANA Comment:Testing performed by : [address] [address] Alk phos 105 40 - 130 Units/L ANA Comment:Testing performed by : [address] [address] ALT 11 7 - 45 Units/L ANA Comment:Testing performed by : [address] [address] AST 23 10 - 45 Units/L ANA Comment:Testing performed by : [address] [address] Blood 08/22/2024 4:40 AM CDT 08/22/2024 5:21 AM CDT us Mathew Renner MD LAB BLOOD ORDERABLES Final R esult ANA SPARROW 7440 [facility] Department [place] [address] * POCT glucose (08/22/2024 4:00 AM CDT) [facility] Signature Glucose, POC 102 70 - 199 mg/dL Comment:Testing performed by : [address] [place] [address] Blood 08/22/2024 4:00 AM CDT 08/22/2024 4:00 AM CDT Jhony Ruiz MD LAB POCT ORDERABLES - DEVICE Final Result Performing Organization Address City/[facility]/ZIP Co de Phone Number ANA [address] [place] [address] * POCT glucose (08/22/2024 2:42 AM CDT) Glucose, POC 146 70 - 199 mg/dL Comment:Testing performed by : [address] [address] Blood 08/22/2024 2:42 AM CDT 08/22/2024 2:42 AM CDT Jhony Ruiz MD LAB POCT ORDERABLES - DEVICE Final Result Performing Organization Address [facility] Co de Phone Number [address] [place] [address] * POCT glucose (08/22/2024 1:23 AM CDT) Glucose, POC 192 70 - 199 mg/dL Comment:Testing performed by : [address] [address] Blood 08/22/2024 1:23 AM CDT 08/22/2024 1:23 AM CDT Jhony Ruiz MD LAB POCT ORDERABLES - DEVICE Final Result Performing Organization Address City/[facility]/ZIP Co de Phone Number SELVIN[address] [place] [address] * (ABNORMAL) POCT glucose (08/22/2024 12:58 AM CDT) Glucose, POC 64(L) 70 - 199 mg/dL Comment:Testing performed by : [address] [address] Blood 08/22/2024 12:5 8 AM CDT 08/22/2024 12:58 AM CDT Jhony Ruiz MD LAB POCT ORDERABLES - DEVICE Final Result Performing Organization Address City/[facility] Co de Phone Number [address] [place] [address] * POCT glucose (08/21/2024 8:07 PM CDT) Glucose, POC 77 70 - 199 mg/dL Comment:Testing performed by : [address] [address] Blood 08/21/2024 8:07 PM CDT 08/21/2024 8:07 PM CDT Jhony Ruiz MD LAB POCT ORDERABLES - DEVICE Final Result Performing Organization Address [facility] de Phone Number [address] [place] [address] * POCT glucose (08/21/2024 4:48 PM CDT) Glucose, POC 77 70 - 199 mg/dL Comment:Testing performed by : [address] [address] Glucose comment 1 RN/MD Notified ANA Comment:Testing performed by : [address] [address] Blood 08/21/2024 4:48 PM CDT 08/21/2024 4:48 PM CDT Jhony Ruiz MD LAB POCT ORDERABLES - DEVICE Final Result Performing Organization Address [facility] Co de Phone Number [address] [place] [address] * POCT glucose (08/21/2024 11:47 AM CDT) Pathologist [facility] Glucose, POC 82 70 - 199 mg/dL Comment:Testing performed by : [address] [address] Glucose comment 1 Will Repeat Test ANA SPARROW Comment:Testing performed by : [address] [address] Glucose comment 2 RN/MD Notified ANA SPARROW Comment:Testing performed by : [address] [address] Blood 08/21/2024 11:4 7 AM CDT 08/21/2024 11:47 AM CDT Jhony Ruiz MD LAB POCT ORDERABLES - DEVICE Final Result ANA 45[address] [facility] [place] [address] * eGFR (08/21/2024 8:27 AM CDT) Pathologist [facility] eGFR 84 >=60 mL/min/1. 73 m2 Comment: Interpretive Data Reference Interval Normal >/= 90 mL/min/1.73m2 Mildly decreased* 60 - 89 mL/min/1.73m2 Mildly to moderately decreased 45 - 59 mL/min/1.73m2 Moderately to severely decreased 30 - 44 mL/min/1.73m2 Severely decreased 15 - 29 mL/min/1.73m2 Kidney Failure < 15 mL/min/1.73m2 *Relative to young adult level Estimated glomerular filtration rate is determined by the 2020 CKD-EPI equation recommended by the National Kidney Foundation (A Unifying Approach to GFR Estimation: Recommendations of the NKF-ASK Task Force on Reassessing the Inclusion of Race in Diagnosing Kidney Disease, JASN 2020). The CKD-EPI equation should not be used for patients with unstable renal function and has not been validated in children and those over 70. Current interpretive data was last reviewed 2021. Testing performed by: [address] [place]., [address] Blood 08/21/2024 8:27 AM CDT 08/21/2024 8:33 AM CDT us Mathew Renner MD LAB BLOOD ORDERABLES Final R esult [facility] [address] [facility] Department [place] [address] * (ABNORMAL) CBC without differential (08/21/2024 8:27 AM CDT) WBC 11.68(H) 3.80 - 9.90 K/cumm Comment:Testing performed by : [address] [address] Hgb 10.9(L) 11.9 - 15.5 g/dL ANA Comment:Testing performed by : [address] [address] Hct 32.6(L) 35.6 - 45.5 % ANA Comment:Testing performed by : [address] [address] Plt 498(H) 150 - 400 K/cumm ANA Comment:Testing performed by : [address] [address] MPV 8.4(L) 9.1 - 12.3 fL ANA Comment:Testing performed by : [address] [address] RBC 3.50(L) 3.90 - 5.20 M/cumm ANA Comment:Testing performed by : [address] [address] MCV 93.1 81.3 - 96.4 fL ANA Comment:Testing performed by : [address] [address] MCH 31.1 27.1 - 33.3 pg ANA Comment:Testing performed by : [address] [address] MCHC 33.4 32.3 - 35.7 g/dL CERNER MH Comment:Testing performed by : [address] [address] RDW CV 14.9 11.1 - 14.9 % ANA SPARROW Comment:Testing performed by : [address] [address] RDW SD 50.4(H) 35.7 - 48.1 fL ANA SPARROW Comment:Testing performed by : [address] [address] NRBC abs 0.00 0.00 - 0.01 K/cumm ANA SPARROW Comment:Testing performed by : [address] [address] Blood 08/21/2024 8:27 AM CDT 08/21/2024 8:33 AM CDT us Mathew Renner MD LAB BLOOD ORDERABLES Final R esult ANA [facility]9 [facility] Department [place] [address] * (ABNORMAL) Basic metabolic panel (08/21/2024 8:27 AM CDT) Sodium 137 135 - 145 mmol/L Comment:Testing performed by : [address] [address] Potassium, pl 3.6 3.3 - 4.9 mmol/L ANA SPARROW Comment:Testing performed by : [address] [address] Chloride 103 97 - 110 mmol/L ANA SPARROW Comment:Testing performed by : [address] [address] CO2 23 22 - 32 mmol/L ANA SPARROW Comment:Testing performed by : [address] [address] Anion gap 11 2 - 15 mmol/L ANA SPARROW Comment:Testing performed by : [address] [address] BUN 6 6 - 25 mg/dL ANA SPARROW Comment:Testing performed by : [address] [address] Creatinine 0.69 0.60 - 1.10 mg/dL ANA SPARROW Comment:Testing performed by : [address] [address] Glucose 85 70 - 199 mg/dL ANA SPARROW Comment: Interpretive Data Fasting glucose >/= 126 mg/dl is diagnostic for diabetes. Fasting is defined as no caloric intake for at least 8 hours. Fasting glucose between 100 mg/dl to 125 mg/dl is diagnostic of prediabetes. In a patient with classic symptoms of hyperglycemia or hyperglycemic crisis, a random glucose >/= 200 mg/dl is diagnostic for diabetes. In the absence of unequivocal hyperglycemia, results should be confirmed by repeat testing. The classification and Diagnosis of Diabetes Diabetes Care 202; 46: S19-S40. Current interpretive data was last revised 2022. Testing performed by: [address] [address] Calcium 8.2(L) 8.5 - 10.3 mg/dL ANA Comment:Testing performed by : [address] [address] Blood 08/21/2024 8:27 AM CDT 08/21/2024 8:33 AM CDT us Mathew Renner MD LAB BLOOD ORDERABLES Final R esult ANA 9834 [facility] Department [place] [address] * POCT glucose (08/21/2024 7:40 AM CDT) [facility] Signature Glucose, POC 77 70 - 199 mg/dL Comment:Testing performed by : [address] [address] Glucose comment 1 Will Repeat Test ANA SPARROW Comment:Testing performed by : [address] [address] Glucose comment 2 RN/MD Notified ANA Comment:Testing performed by : [address] [address] Blood 08/21/2024 7:40 AM CDT 08/21/2024 7:40 AM CDT us Jhony Ruiz MD LAB POCT ORDERABLES - DEVICE Final Result Performing Organization Address City/[facility] Co de Phone Number ANA [address] [place] [address] * eGFR (08/21/2024 5:57 AM CDT) eGFR 85 >=60 mL/min/1. 73 m2 Comment: Interpretive Data Reference Interval Normal >/= 90 mL/min/1.73m2 Mildly decreased* 60 - 89 mL/min/1.73m2 Mildly to moderately decreased 45 - 59 mL/min/1.73m2 Moderately to severely decreased 30 - 44 mL/min/1.73m2 Severely decreased 15 - 29 mL/min/1.73m2 Kidney Failure < 15 mL/min/1.73m2 *Relative to young adult level Estimated glomerular filtration rate is determined by the 2020 CKD-EPI equation recommended by the National Kidney Foundation (A Unifying Approach to GFR Estimation: Recommendations of the NKF-ASK Task Force on Reassessing the Inclusion of Race in Diagnosing Kidney Disease, JASN 2020). The CKD-EPI equation should not be used for patients with unstable renal function and has not been validated in children and those over 70. Current interpretive data was last reviewed 2021. Testing performed by: [facility], [address] [place] [address]., [id number] Blood 08/21/2024 5:57 AM CDT 08/21/2024 6:50 AM CDT us Kathrine Stephens NP LAB BLOOD ORDERABLES Final Result Performing Organization Address City/[facility]/ZIP Co de Phone Number ANA [address] Department [place] [address] * (ABNORMAL) Differential, auto (08/21/2024 5:57 AM CDT) Neutrophil abs 7.71(H) 1.50 - 6.50 K/cumm Comment:Testing performed by : [address], [place]., [address] Imm gran abs 0.21(H) 0.00 - 0.10 K/cumm ANA Comment:Testing performed by : [address], [place]., [address] Lymphocyte abs 1.83 0.80 - 3.30 K/cumm ANA Comment:Testing performed by : [address], [place]., [address] Monocyte abs 1.66(H) 0.20 - 0.80 K/cumm [facility] Comment:Testing performed by : [address], [place]., [address] Eosinophil abs 0.33 0.00 - 0.50 K/cumm [facility] Comment:Testing performed by : [address] [address] Basophil abs 0.09 0.00 - 0.10 K/cumm [facility] Comment:Testing performed by : [address] [address] Neutrophil pct 65.1 % [facility] Comment: Interpretive Data Percent cell count reference ranges are not reported, since discordance with absolute values may lead to misinterpretation of CBC data. Current Interpretive Data was last revised on 2017. Testing performed by: [address] [address] Imm gran pct 1.8 % [facility] Comment: Interpretive Data Percent cell count reference ranges are not reported, since discordance with absolute values may lead to misinterpretation of CBC data. Current Interpretive Data was last revised on 2017. Testing performed by: [address] [address] Lymphocyte pct 15.5 % [facility] Comment: Interpretive Data Percent cell count reference ranges are not reported, since discordance with absolute values may lead to misinterpretation of CBC data. Current Interpretive Data was last revised on 2017. Testing performed by: [address] [address] Monocyte pct 14.0 % ANA Comment: Interpretive Data Percent cell count reference ranges are not reported, since discordance with absolute values may lead to misinterpretation of CBC data. Current Interpretive Data was last revised on 2017. Testing performed by: [address] [address] Eosinophil pct 2.8 % ANA Comment: Interpretive Data Percent cell count reference ranges are not reported, since discordance with absolute values may lead to misinterpretation of CBC data. Current Interpretive Data was last revised on 2017. Testing performed by: [address] [address] Basophil pct 0.8 % ANA Comment: Interpretive Data Percent cell count reference ranges are not reported, since discordance with absolute values may lead to misinterpretation of CBC data. Current Interpretive Data was last revised on 2017. Testing performed by: [address] [address] Blood 08/21/2024 5:57 AM CDT 08/21/2024 6:50 AM CDT us Kathrine Stephens NP LAB BLOOD ORDERABLES Final Result [facility] [address] [facility] Department [place] [address] * (ABNORMAL) CBC with auto differential (08/21/2024 5:57 AM CDT) WBC 11.83(H) 3.80 - 9.90 K/cumm Comment:Testing performed by : [address] [address] Hgb 11.5(L) 11.9 - 15.5 g/dL ANA SPARROW Comment:Testing performed by : [address] [address] Hct 35.0(L) 35.6 - 45.5 % ANA Comment:Testing performed by : [address] [address] Plt 514(H) 150 - 400 K/cumm ANA SPARROW Comment:Testing performed by : [address] [address] MPV 9.0(L) 9.1 - 12.3 fL ANA SPARROW Comment:Testing performed by : [address] [address] RBC 3.74(L) 3.90 - 5.20 M/cumm ANA SPARROW Comment:Testing performed by : [address] [address] MCV 93.6 81.3 - 96.4 fL ANA Comment:Testing performed by : [address] [address] MCH 30.7 27.1 - 33.3 pg ANA SPARROW Comment:Testing performed by : [address] [address] MCHC 32.9 32.3 - 35.7 g/dL ANA Comment:Testing performed by : [address] [address] RDW CV 15.1(H) 11.1 - 14.9 % ANA Comment:Testing performed by : [address], [address] RDW SD 51.3(H) 35.7 - 48.1 fL ANA Comment:Testing performed by : [address] [address] NRBC abs 0.00 0.00 - 0.01 K/cumm ANA Comment:Testing performed by : [address] [address] Blood 08/21/2024 5:57 AM CDT 08/21/2024 6:50 AM CDT Kathrine Stephens NP LAB BLOOD ORDERABLES Final Result ANA [address] [facility] Department [place] [address] * Phosphorus (08/21/2024 5:57 AM CDT) [facility] Phosphorus, pl 3.1 2.3 - 4.5 mg/dL Comment:Testing performed by : [address] [address] Blood 08/21/2024 5:57 AM CDT 08/21/2024 6:50 AM CDT Kathrine Stephens [employer] LAB BLOOD ORDERABLES Final Result Performing Organization Address [facility] Co de Phone Number [address] [place] [address] * Magnesium (08/21/2024 5:57 AM CDT) [facility] Magnesium 1.8 1.4 - 2.5 mg/dL Comment:Testing performed by : [address] [address] Blood 08/21/2024 5:57 AM CDT 08/21/2024 6:50 AM CDT Kathrine Stephens [employer] LAB BLOOD ORDERABLES Final Result Performing Organization Address [facility] de Phone Number [address] [place] [address] * (ABNORMAL) Basic metabolic panel (08/21/2024 5:57 AM CDT) [facility] Sodium 136 135 - 145 mmol/L Comment:Testing performed by : [address] [address] Potassium, pl 3.7 3.3 - 4.9 mmol/L ANA Comment: Hemolyzed; Potassium value may be falsely elevated by as much as 1.0 mmol/L. Suggest redraw and reanalysis. Testing performed by: [address] [address] Chloride 103 97 - 110 mmol/L ANA Comment:Testing performed by : [address] [address] CO2 21(L) 22 - 32 mmol/L ANA Comment:Testing performed by : [address] [address] Anion gap 12 2 - 15 mmol/L ANA Comment:Testing performed by : [address] [address] BUN 7 6 - 25 mg/dL ANA Comment:Testing performed by : [address] [address] Creatinine 0.65 0.60 - 1.10 mg/dL ANA Comment:Testing performed by : [address] [address] Glucose 78 70 - 199 mg/dL ANA Comment: Interpretive Data Fasting glucose >/= 126 mg/dl is diagnostic for diabetes. Fasting is defined as no caloric intake for at least 8 hours. Fasting glucose between 100 mg/dl to 125 mg/dl is diagnostic of prediabetes. In a patient with classic symptoms of hyperglycemia or hyperglycemic crisis, a random glucose >/= 200 mg/dl is diagnostic for diabetes. In the absence of unequivocal hyperglycemia, results should be confirmed by repeat testing. The classification and Diagnosis of Diabetes Diabetes Care 202; 46: S19-S40. Current interpretive data was last revised 2022. Testing performed by: [address] [address] Calcium 8.4(L) 8.5 - 10.3 mg/dL ANA Comment:Testing performed by : [address] [address] Blood 08/21/2024 5:57 AM CDT 08/21/2024 6:50 AM CDT us Kathrine Stephens NP LAB BLOOD ORDERABLES Final Result ANA SPARROW [address] [facility] Department of Laboratories [place], [place] [id number] * POCT glucose (08/21/2024 4:54 AM CDT) [facility] Signature Glucose, POC 77 70 - 199 mg/dL Comment:Testing performed by : [address] [address] Glucose comment 1 RN/ Notified ANA Comment:Testing performed by : [address] [address] Blood 08/21/2024 4:54 AM CDT 08/21/2024 4:54 AM CDT Gonzalo Sutton MD LAB POCT ORDERABLES - D EVICE Final Result Performing Organization Address [facility] de Phone Number ANA [address] [place] [address] * POCT glucose (08/21/2024 12:52 AM CDT) Glucose, POC 82 70 - 199 mg/dL Comment:Testing performed by : [address] [address] Glucose comment 1 RN/ Notified ANA Comment:Testing performed by : [address] [address] Blood 08/21/2024 12:5 2 AM CDT 08/21/2024 12:52 AM CDT Gonzalo Sutton MD LAB POCT ORDERABLES - D EVICE Final Result Performing Organization Address [facility] de Phone Number [address] [address] * POCT glucose (08/20/2024 8:52 PM CDT) Glucose, POC 81 70 - 199 mg/dL Comment:Testing performed by : [address] [address] Glucose comment 1 RN/MD Notified ANA Comment:Testing performed by : [address] [address] Blood 08/20/2024 8:52 PM CDT 08/20/2024 8:52 PM CDT Gonzalo Sutton MD LAB POCT ORDERABLES - D EVICE Final Result Performing Organization Address City/[facility]/ZIP Co de Phone Number ANA [address] [place] [address] * POCT glucose (08/20/2024 5:23 PM CDT) Glucose, POC 90 70 - 199 mg/dL Comment:Testing performed by : [address] [address] Blood 08/20/2024 5:23 PM CDT 08/20/2024 5:23 PM CDT Gonzalo Sutton MD LAB POCT ORDERABLES - D EVICE Final Result Performing Organization Address [facility] Co de Phone Number SELVIN[address] [address] * C. difficile testing Stool (08/20/2024 4:59 PM CDT) C. diff result Negative, DNA Negative , DNA Comment:Testing performed by : [address] [address] C. diff interp Negative for toxigenic Clostridioides (Clostridium) difficile. Analysis performed by detection of gene(s) encoding C. difficile toxin(s). The nucleic acid detection assay used is cleared by the [place] Food and Drug administration and its performance characteristics have been verified by the performing laboratory. ANA Comment: NAP (O27) - presumptive negative Testing performed by: [address] [address] Stool 08/20/2024 4:59 PM CDT 08/20/2024 5:04 PM CDT Kathrine Stephens NP LAB MICROBIOLOGY - G ENERAL ORDERABLES Final Result Performing Organization Address [facility] Co de Phone Number SELVIN[address] [place] [address] * POCT glucose (08/20/2024 12:15 PM CDT) Glucose, POC 75 70 - 199 mg/dL Comment:Testing performed by : [address] [address] Blood 08/20/2024 12:1 5 PM CDT 08/20/2024 12:15 PM CDT us Gonzalo Sutton MD LAB POCT ORDERABLES - D EVICE Final Result [facility] [address] [facility] Department of Laboratories [place], [place] [id number] * (ABNORMAL) Urinalysis reflex to microscopic and culture Urine (08/20/2024 8:23 AM CDT) Color, ur Yellow Yellow Comment:Testing performed by : [address] [address] Clarity, ur Cloudy(A) Clear ANA Comment:Testing performed by : [address] [address] Specific gravity, ur 1.035(H) 1.003 - 1.030 ANA Comment:Testing performed by : [address] [address] pH, urine 7.0 ANA Comment: Interpretive Data U rine pH is affected by diet, medications, systemic acid-base disturbances, and renal tubular function. pH may affect urinary stone formation. For example, urine pH below 6.0 may help reduce the tendency for calcium phosphate stones and pH greater than 6.0 may reduce the tendency for uric acid stone formation. Source: [facility] [place] Current Interpretive Data was last revised on 2017 Testing performed by: [address] [address] Protein, ur ql Trace(A) Negative ANA Comment:Testing performed by : [address] [address] Glucose, ur ql Negative Negative ANA Comment:Testing performed by : [address] [address] Ketones, ur Negative Negative ANA SPARROW Comment:Testing performed by : [address] [address] Bilirubin, ur Negative Negative ANA SPARROW Comment:Testing performed by : [address], [place]., [address] Blood, ur 2+(A) Negative ANA SPARROW Comment:Testing performed by : [address], [place]., [address] Urobilinogen, ur <2.0 <2.0 mg/dL ANA SPARROW Comment:Testing performed by : [address], [place]., [address] Nitrite, ur Positive(A) Negative ANA SPARROW Comment:Testing performed by : [address] [address] Leukocyte esterase, ur 4+(A) Negative ANA SPARROW Comment:Testing performed by : [address] [address] UA reflex comment Reflex to microscopic UA will be performed. ANA SPARROW Comment:Testing performed by : [address], [place]., [address] Urine 08/20/2024 8:23 AM CDT 08/20/2024 8:26 AM CDT us Jesenia Capone MD LAB MICROBIOLOGY - GENER AL ORDERABLES Final Result ANA [address] [facility] Department [place] [address] * (ABNORMAL) Urinalysis, microscopic only (08/20/2024 8:23 AM CDT) WBC, ur >50(A) 0 - 5 /HPF Comment:Testing performed by : [address] [address] RBC, ur 21-50(A) 0 - 2 /HPF ANA SPARROW Comment:Testing performed by : [address] [address] Epithelial cells, squamous, ur 1-5 0 - 5 /HPF ANA SPARROW Comment:Testing performed by : [facility], [address] [place] [address]., [address] Bacteria, ur 2+(A) ANA SPARROW Comment:Testing performed by : [address] [address] Mucous, ur Present(A) ANA SPARROW Comment:Testing performed by : [facility], [address] [place] [address]., [address] Culture Reflex Comment Reflex to urine culture will be performed. ANA Comment:Testing performed by : [facility], [address] [place] [address]., [address] Urine 08/20/2024 8:23 AM CDT 08/20/2024 8:26 AM CDT Jesenia Capone MD LAB URINE ORDERABLES Fin al Result Performing Organization Address [facility] de Phone Number ANA [address] [place] [address] * Urine culture Urine (08/20/2024 8:23 AM CDT) Report Final Report: Less than 100,000 colonies/mL (clinically insignificant growth based on current clinical standards) Comment:Testing performed by : [facility], [address] [place] [address] Organism (CLINICALLY INSIGNIFICANT GROWTH ANA Urine 08/20/2024 8:23 AM CDT 08/20/2024 12:07 PM CDT Narrative ANA - 08/21/2024 8:35 PM CDT Urine culture reflexed based upon urinalysis results. Testing performed by [facility] ([phone]) Jesenia Capone MD LAB MICROBIOLOGY - GENER AL ORDERABLES Final Result Performing Organization Address City/[facility] Co de Phone Number SELVIN[address] [place] [address] * Sepsis Lactate w/ Reflex (08/20/2024 8:14 AM CDT) Sepsis Lactate 1.7 0.7 - 2.0 mmol/L Comment:Testing performed by : [facility], [address] [place] [address], [place]., [address] Blood 08/20/2024 8:14 AM CDT 08/20/2024 8:17 AM CDT us Jesenia Capone MD LAB BLOOD ORDERABLES Fin al Result ANA [address] [facility] Department [place] [address] * CT Abdomen Pelvis W Contrast (08/20/2024 6:13 AM CDT) Anatomical Region Laterality Modality Body N/A Computed Tomogra phy 08/20/2024 6:53 AM CDT Narrative 08/20/2024 7:21 AM CDT EXAM DESCRIPTION: CT ABDOMEN PELVIS W CONTRAST REASON FOR STUDY: Bowel obstruction suspected, Abdominal pain, acute, nonlocalized Patient came in via EMS with Nausea, vomiting, and diarrhea. Per patient she has had 3 loose stool beginning an hour [employer]. Patient reporting Abdominal pain 8/10. TECHNIQUE: CT scan of the abdomen and pelvis performed with intravenous and without oral contrast using helical scanning technique with dynamic intravenous contrast injection. Reconstructed coronal and sagittal MPR images reviewed. All images stored on PACS. Automated exposure control was used as a dose optimization technique for this examination. CONTRAST TYPE/DOSE: 80mL of IOVERSOL 350 MG IODINE/ML INTRAVENOUS SYRINGE injected via intravenous COMPARISON: 03/23/2023 FINDINGS: LOWER CHEST: There is borderline cardiomegaly. There is no definite evidence of a pericardial effusion. There are mild atherosclerotic changes of the aorta. There is mild bibasilar subsegmental atelectasis and scarring. There is a small hiatal hernia. LIVER: There is a focal wedge-shaped area of hyperattenuation involving segment 8 of the liver, which may be perfusional (axial image 28). The hepatic and portal veins are grossly patent. GALLBLADDER: Grossly unremarkable. BILE DUCTS: No intrahepatic or extrahepatic ductal dilatation. SPLEEN: The spleen is grossly stable in size and unremarkable. PANCREAS: There is no definite evidence of pancreatic ductal dilatation, peripancreatic inflammatory changes, or peripancreatic fluid collection. There is redemonstration of the cystic lesion involving the pancreatic body measuring 2.6 by 1.4 cm, which previously measured up to 2.3 cm on prior MRI dated 03/23/2023. There is a an additional cystic lesion noted involving the pancreatic body measuring 1.2 cm, which previously measured 1.0 cm on prior MRI dated 03/23/2023 (axial image 40). ADRENALS: The bilateral adrenal glands are grossly stable and unremarkable. KIDNEYS/URINARY TRACT: The bilateral kidneys enhance symmetrically. There is no definite evidence of focal renal lesion. The bilateral kidneys have extrarenal pelves. There is no definite evidence of hydronephrosis or hydroureter. There is circumferential mucosal thickening of the urinary bladder. 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 There is air noted within the urinary bladder, which is likely related to the colovesicular fistula.. 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 There is also fistulous communication between the inflamed sigmoid colon and urinary bladder. There is no definite evidence of a bowel obstruction. There is a mucosal thickening of the distal small bowel and transverse colon near the inflamed sigmoid colon, which is likely reactive, however given the inflammation and the proximity to the inflamed sigmoid colon, subtle enteric colic and colocolonic fistula can not be entirely excluded. There is no definite evidence of free air in the abdomen and pelvis. There is no definite evidence of lymphadenopathy in the abdomen and pelvis. REPRODUCTIVE: There is septated cystic lesion noted in the right ovary measuring 2.3 by 1.7 cm, which previously measured up to 2.[address] dated 12/19/2021 (axial image 100). MUSCULOSKELETAL: There is mild osteopenia. There is a mild levoscoliotic curvature of the spine with degenerative changes. There are degenerative changes bilateral sacroiliac joints and bilateral hips. OTHER: No other abnormality. IMPRESSION: No definite evidence of bowel obstruction. 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 Mucosal thickening of the distal small bowel and transverse colon near the inflamed sigmoid colon, which is likely reactive, however given the inflammation and the proximity to the inflamed sigmoid colon, subtle enteric colic and colocolonic fistula can not be entirely excluded. Circumferential mucosal thickening of the urinary bladder, which is likely related to the colovesicular fistula. Clinical correlation with urinary analysis is recommended as clinically indicated. Redemonstration of the cystic lesions involving the pancreatic body measuring up to 2.6 cm, which have increased in size in comparison to prior MRI dated 03/23/2023. Further evaluation with MRI/MRCP with pancreatic protocol on a nonemergent is recommended as clinically indicated. Septated cystic lesion noted in the right ovary measuring up to 2.3 cm, which previously measured up to 2.[address] dated 12/23/2021. Further evaluation with pelvic ultrasound 3-6 months is recommended to assess for stability as clinically indicated. Focal wedge-shaped area of hyperattenuation involving segment 8 of the liver, which may be perfusional. Continued attention on the aforementioned follow-up MRI is recommended as clinically indicated. Findings were discussed with Dr. Miller by Dr. Mosley at 07:21 hours on 08/20/2024 . THIS IS AN ELECTRONICALLY VERIFIED FINAL REPORT 08/20/2024 7:21 AM - Electronically signed by No Mosley D.O. PS: PS Report ID: [id number] Reading Location: [id number] Procedure Note No Mosley, - 08/20/2024 EXAM DESCRIPTION: CT ABDOMEN PELVIS W CONTRAST REASON FOR STUDY: Bowel obstruction suspected, Abdominal pain, acute, nonlocalized Patient came in via EMS with Nausea, vomiting, and diarrhea. Per patientshe has had 3 loose stool beginning an hour [employer]. Patient reporting Abdominalpain 11/08. TECHNIQUE: CT scan of the abdomen and pelvis performed with intravenousand without oral contrast using helical scanning technique with dynamic intravenous contrast injection. Reconstructed coronal and sagittal MPRimages reviewed. All images stored on PACS. Automated exposure control was usedas a dose optimization technique for this examination. CONTRAST TYPE/DOSE: 80mL of IOVERSOL 350 MG IODINE/ML INTRAVENOUSSYRINGE injected via intravenous COMPARISON: 03/23/2023 FINDINGS: LOWER CHEST: There is borderline cardiomegaly. There is no definite evidence of a pericardial effusion. There are mildatherosclerotic changes of the aorta. There is mild bibasilar subsegmental atelectasisand scarring. There is a small hiatal hernia. LIVER: There is a focal wedge-shaped area of hyperattenuation involving segment 8 of the liver, which may be perfusional (axial image 28). The hepatic and portal veins are grossly patent. GALLBLADDER: Grossly unremarkable. BILE DUCTS: No intrahepatic or extrahepatic ductal dilatation. SPLEEN: The spleen is grossly stable in size and unremarkable. PANCREAS: There is no definite evidence of pancreatic ductal dilatation, peripancreatic inflammatory changes, or peripancreatic fluid collection. There is redemonstration of the cystic lesion involving the pancreaticbody measuring 2.6 by 1.4 cm, which previously measured up to 2.3 cm on priorMRI dated 03/23/2023. There is a an additional cystic lesion noted involvingthe pancreatic body measuring 1.2 cm, which previously measured 1.0 cm onprior MRI dated 03/23/2023 (axial image 40). ADRENALS: The bilateral adrenal glands are grossly stable andunremarkable. KIDNEYS/URINARY TRACT: The bilateral kidneys enhance symmetrically.There is no definite evidence of focal renal lesion. The bilateral kidneys have extrarenal pelves. There is no definite evidence of hydronephrosis or hydroureter. There is circumferential mucosal thickening of the urinary bladder. 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 Thereis air noted within the urinary bladder, which is likely related to the colovesicular fistula.. 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 There is also fistulous communication between the inflamed sigmoid colon and urinary bladder. There is no definite evidence of a bowel obstruction. There is a mucosal thickening of the distal small bowel and transverse colon near theinflamed sigmoid colon, which is likely reactive, however given the inflammationand the proximity to the inflamed sigmoid colon, subtle enteric colic and colocolonic fistula can not be entirely excluded. There is no definite evidence of free air in the abdomen and pelvis. There is no definiteevidence of lymphadenopathy in the abdomen and pelvis. REPRODUCTIVE: There is septated cystic lesion noted in the right ovary measuring 2.3 by 1.7 cm, which previously measured up to 2.3 cm on priorCT dated 12/19/2021 (axial image 100). MUSCULOSKELETAL: There is mild osteopenia. There is a mildlevoscoliotic curvature of the spine with degenerative changes. There are degenerative changes bilateral sacroiliac joints and bilateral hips. OTHER: No other abnormality. IMPRESSION: No definite evidence of bowel obstruction. 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 Mucosal thickening of the distal small bowel and transverse colon nearthe inflamed sigmoid colon, which is likely reactive, however given the inflammation and the proximity to the inflamed sigmoid colon, subtleenteric colic and colocolonic fistula can not be entirely excluded. Circumferential mucosal thickening of the urinary bladder, which islikely related to the colovesicular fistula. Clinical correlation with urinary analysis is recommended as clinically indicated. Redemonstration of the cystic lesions involving the pancreatic bodymeasuring up to 2.6 cm, which have increased in size in comparison to prior MRIdated 03/23/2023. Further evaluation with MRI/MRCP with pancreatic protocol leroy nonemergent is recommended as clinically indicated. Septated cystic lesion noted in the right ovary measuring up to 2.3 cm,which previously measured up to 2.[address] dated 12/23/2021. Further evaluation with pelvic ultrasound 3-6 months is recommended to assess for stability as clinically indicated. Focal wedge-shaped area of hyperattenuation involving segment 8 of theliver, which may be perfusional. Continued attention on the aforementionedfollow-up MRI is recommended as clinically indicated. Findings were discussed with Dr. Miller by Dr. Mosley at 07:21 hourson 08/20/2024 . THIS IS AN ELECTRONICALLY VERIFIED FINAL REPORT 08/20/2024 7:21 AM - Electronically signed by No Mosley D.O. PS: PS Report ID: [id number] Reading Location: [place] [address] Jesenia Capone MD IMG CT PROCEDURES Final Result * Blood culture Blood Peripheral (08/20/2024 5:53 AM CDT) Report Final Report: No growth Comment:Testing performed by : [facility], [address] [place] [address] Blood (Peripheral) 08/20/2024 5:53 AM CDT 08/20/2024 9:50 AM CDT Dale PEREZ - 08/24/2024 12:00 PM CDT From a different site than #1. Draw Blood cultures before administration of Antibiotics Collection->Peripheral 1. Blood cultures are incubated for 4 days on a continuously monitored blood culture system. The first report of a negative culture is issued within 24 hours of receipt of the specimen in the laboratory. 2. Positive culture results are reported as soon as they are detected. 3. The most important factor for detection of microbes in the setting of bloodstream infection is the volume of blood submitted for culture. Failure to collect an optimal blood volume can result in false negative blood cultures. 4. For pediatric patients, the recommended blood volume to collect follows a weight based strategy. See the electronic test catalog for collection instructions. 5. For positive blood cultures, a rapid molecular test may be performed for organism identification using the larissa ePlex blood culture identification panel for gram positive (BCID-GP) and gram negative (BCID-GN) organisms. This nucleic acid amplification test detects microbial DNA in positive blood culture broth. This assay has been cleared by the [place] Food and Drug Administration and its performance characteristics have been verified by the [facility]. For questions about this culture, contact the Microbiology Laboratory at [phone]. Interpretive data was last revised on 24. Jesenia Capone MD LAB MICROBIOLOGY - GENER AL ORDERABLES Final Result Performing Organization Address City/[facility] Co de Phone Number ANA SPARROW [address] [facility] [place] [address] * Blood culture Blood Peripheral (08/20/2024 5:53 AM CDT) Report Final Report: No growth Comment:Testing performed by : [facility], [address] [place]., [address] Blood (Peripheral) 08/20/2024 5:53 AM CDT 08/20/2024 9:50 AM CDT Narrative ANA SPARROW - 08/24/2024 12:00 PM CDT Draw Blood cultures before administration of Antibiotics Collection->Peripheral 1. Blood cultures are incubated for 4 days on a continuously monitored blood culture system. The first report of a negative culture is issued within 24 hours of receipt of the specimen in the laboratory. 2. Positive culture results are reported as soon as they are detected. 3. The most important factor for detection of microbes in the setting of bloodstream infection is the volume of blood submitted for culture. Failure to collect an optimal blood volume can result in false negative blood cultures. 4. For pediatric patients, the recommended blood volume to collect follows a weight based strategy. See the electronic test catalog for collection instructions. 5. For positive blood cultures, a rapid molecular test may be performed for organism identification using the larissa ePlex blood culture identification panel for gram positive (BCID-GP) and gram negative (BCID-GN) organisms. This nucleic acid amplification test detects microbial DNA in positive blood culture broth. This assay has been cleared by the [place] Food and Drug Administration and its performance characteristics have been verified by the [facility]. For questions about this culture, contact the Microbiology Laboratory at [phone]. Interpretive data was last revised on 24. Jesenia Capone MD LAB MICROBIOLOGY - GENER AL ORDERABLES Final Result Performing Organization Address City/[facility] Co de Phone Number CERNER [address] [place] [address] * (ABNORMAL) Sepsis Lactate w/ Reflex (08/20/2024 5:25 AM CDT) [facility] Sepsis Lactate 3.8(H) 0.7 - 2.0 mmol/L Comment:Testing performed by : [facility], [address] [place] [address]., [id number] Blood 08/20/2024 5:25 AM CDT 08/20/2024 5:31 AM CDT us Jesenia Capone MD LAB BLOOD ORDERABLES Fin al Result Performing Organization Address City/[facility]/ZIP Co de Phone Number ANA [address] [address] * ECG 12 lead (08/20/2024 5:14 AM CDT) [facility] Ventricular Rate EKG/Min 86 BPM [facility] Atrial Rate 86 BPM [facility] NV-Interval (MSEC) 180 ms [facility] QRS-Interval (MSEC) 64 ms [facility] QT-Interval (MSEC) 346 ms [facility] QTc 414 ms [facility] P Monument 59 degrees [facility] R [place] -45 degrees [facility] T [place] -10 degrees [facility] Diagnosis Sinus rhythm with Premature atrial complexes Left axis deviation Inferior infarct , age undetermined Possible Anterior infarct (cited on or before 18-JUN-2024) Abnormal ECG When compared with ECG of 18-JUN-2024 12:34, Premature atrial complexes are now Present Vent. rate has increased BY 34 BPM Questionable change in initial forces of Lateral leads Confirmed by JUSTINE SERVIN M.D. ([id number]) on 08/21/2024 7:45:03 AM [facility] 08/20/2024 5:14 AM CDT 08/21/2024 7:45 AM CDT us Jesenia Capone MD ECG ORDERABLES Final Re sult Performing Organization Address City/[facility]/ZIP Co de Phone Number [facility] * eGFR (08/20/2024 4:59 AM CDT) eGFR 62 >=60 mL/min/1. 73 m2 Comment: Interpretive Data Reference Interval Normal >/= 90 mL/min/1.73m2 Mildly decreased* 60 - 89 mL/min/1.73m2 Mildly to moderately decreased 45 - 59 mL/min/1.73m2 Moderately to severely decreased 30 - 44 mL/min/1.73m2 Severely decreased 15 - 29 mL/min/1.73m2 Kidney Failure < 15 mL/min/1.73m2 *Relative to young adult level Estimated glomerular filtration rate is determined by the 2020 CKD-EPI equation recommended by the National Kidney Foundation (A Unifying Approach to GFR Estimation: Recommendations of the NKF-ASK Task Force on Reassessing the Inclusion of Race in Diagnosing Kidney Disease, JASN 2020). The CKD-EPI equation should not be used for patients with unstable renal function and has not been validated in children and those over 70. Current interpretive data was last reviewed 2021. Testing performed by: [address] [address] Blood 08/20/2024 4:59 AM CDT 08/20/2024 5:03 AM CDT us Jesenia Capone MD LAB BLOOD ORDERABLES Fin al Result [facility] [address] [facility] Department [place] [address] * (ABNORMAL) Differential, auto (08/20/2024 4:59 AM CDT) Neutrophil abs 18.61(H) 1.50 - 6.50 K/cumm Comment:Testing performed by : [address] [address] Imm gran abs 0.46(H) 0.00 - 0.10 K/cumm ANA Comment:Testing performed by : [address] [address] Lymphocyte abs 1.55 0.80 - 3.30 K/cumm ANA Comment:Testing performed by : [address], [place]., [address] Monocyte abs 1.90(H) 0.20 - 0.80 K/cumm ANA Comment:Testing performed by : [address], [place]., [address] Eosinophil abs 0.07 0.00 - 0.50 K/cumm ANA Comment:Testing performed by : [address], [place]., [address] Basophil abs 0.11(H) 0.00 - 0.10 K/cumm ANA Comment:Testing performed by : [address] [address] Neutrophil pct 82.0 % ANA Comment: Interpretive Data Percent cell count reference ranges are not reported, since discordance with absolute values may lead to misinterpretation of CBC data. Current Interpretive Data was last revised on 2017. Testing performed by: [address] [address] Imm gran pct 2.0 % ANA Comment: Interpretive Data Percent cell count reference ranges are not reported, since discordance with absolute values may lead to misinterpretation of CBC data. Current Interpretive Data was last revised on 2017. Testing performed by: [address] [address] Lymphocyte pct 6.8 % [facility] Comment: Interpretive Data Percent cell count reference ranges are not reported, since discordance with absolute values may lead to misinterpretation of CBC data. Current Interpretive Data was last revised on 2017. Testing performed by: [address] [address] Monocyte pct 8.4 % ANA Comment: Interpretive Data Percent cell count reference ranges are not reported, since discordance with absolute values may lead to misinterpretation of CBC data. Current Interpretive Data was last revised on 2017. Testing performed by: [address] [address] Eosinophil pct 0.3 % ANA Comment: Interpretive Data Percent cell count reference ranges are not reported, since discordance with absolute values may lead to misinterpretation of CBC data. Current Interpretive Data was last revised on 2017. Testing performed by: [address] [address] Basophil pct 0.5 % ANA SPARROW Comment: Interpretive Data Percent cell count reference ranges are not reported, since discordance with absolute values may lead to misinterpretation of CBC data. Current Interpretive Data was last revised on 2017. Testing performed by: [address] [address] Blood 08/20/2024 4:59 AM CDT 08/20/2024 5:03 AM CDT us Jesenia Capone MD LAB BLOOD ORDERABLES Fin al Result ANA [address] [facility] Department [place] [address] * (ABNORMAL) CBC with auto differential (08/20/2024 4:59 AM CDT) WBC 22.70(H) 3.80 - 9.90 K/cumm Comment:Testing performed by : [address] [address] Hgb 12.3 11.9 - 15.5 g/dL ANA SPARROW Comment:Testing performed by : [address] [address] Hct 36.9 35.6 - 45.5 % ANA SPARROW Comment:Testing performed by : [address] [address] Plt 626(H) 150 - 400 K/cumm ANA SPARROW Comment:Testing performed by : [address] [address] MPV 8.6(L) 9.1 - 12.3 fL ANA SPARROW Comment:Testing performed by : [address] [address] RBC 4.01 3.90 - 5.20 M/cumm ANA SPARROW Comment:Testing performed by : [address] [address] MCV 92.0 81.3 - 96.4 fL ANA SPARROW Comment:Testing performed by : [address] [address] MCH 30.7 27.1 - 33.3 pg ANA SPARROW Comment:Testing performed by : [address] [address] MCHC 33.3 32.3 - 35.7 g/dL ANA SPARROW Comment:Testing performed by : [address], [address] RDW CV 14.7 11.1 - 14.9 % ANA SPARROW Comment:Testing performed by : [address], [address] RDW SD 48.8(H) 35.7 - 48.1 fL ANA SPARROW Comment:Testing performed by : [address], [address] NRBC abs 0.00 0.00 - 0.01 K/cumm ANA Comment:Testing performed by : [address], [address] Blood 08/20/2024 4:59 AM CDT 08/20/2024 5:03 AM CDT Jesenia Capone MD LAB BLOOD ORDERABLES Fin al Result Performing Organization Address City/[facility] Co de Phone Number [address] Department [place] [address] * Magnesium (08/20/2024 4:59 AM CDT) Magnesium 1.7 1.4 - 2.5 mg/dL Comment:Testing performed by : [address] [address] Blood 08/20/2024 4:59 AM CDT 08/20/2024 5:03 AM CDT Jesenia Capone MD LAB BLOOD ORDERABLES Fin al Result Performing Organization Address City/[facility] Co de Phone Number ANA [address] [place] [address] * (ABNORMAL) Comprehensive metabolic panel (08/20/2024 4:59 AM CDT) Sodium 133(L) 135 - 145 mmol/L Comment:Testing performed by : [address] [address] Potassium, pl 3.8 3.3 - 4.9 mmol/L ANA Comment:Testing performed by : [address] [address] Chloride 95(L) 97 - 110 mmol/L ANA Comment:Testing performed by : [address] [address] CO2 21(L) 22 - 32 mmol/L ANA Comment:Testing performed by : [address] [address] Anion gap 17(H) 2 - 15 mmol/L ANA Comment:Testing performed by : [address] [address] BUN 20 6 - 25 mg/dL ANA Comment:Testing performed by : [address] [address] Creatinine 0.90 0.60 - 1.10 mg/dL ANA Comment:Testing performed by : [address] [address] Glucose 141 70 - 199 mg/dL ANA Comment: Interpretive Data Fasting glucose >/= 126 mg/dl is diagnostic for diabetes. Fasting is defined as no caloric intake for at least 8 hours. Fasting glucose between 100 mg/dl to 125 mg/dl is diagnostic of prediabetes. In a patient with classic symptoms of hyperglycemia or hyperglycemic crisis, a random glucose >/= 200 mg/dl is diagnostic for diabetes. In the absence of unequivocal hyperglycemia, results should be confirmed by repeat testing. The classification and Diagnosis of Diabetes Diabetes Care 2021; 46: S19-S40. Current interpretive data was last revised 2022. Testing performed by: [address] [address] Calcium 8.6 8.5 - 10.3 mg/dL ANA SPARROW Comment:Testing performed by : [facility], [address] [place] [address]., [address] Bilirubin, total 0.6 0.1 - 1.2 mg/dL ANA Comment:Testing performed by : [address] [address] Protein, pl 7.1 6.5 - 8.5 g/dL ANA Comment:Testing performed by : [address] [address] Albumin 3.5 3.5 - 5.0 g/dL ANA Comment:Testing performed by : [address] [address] Alk phos 118 40 - 130 Units/L ANA Comment:Testing performed by : [address] [address] ALT 11 7 - 45 Units/L ANA Comment:Testing performed by : [address] [address] AST 24 10 - 45 Units/L ANA Comment:Testing performed by : [address] [address] Blood 08/20/2024 4:59 AM CDT 08/20/2024 5:03 AM CDT us Jesenia Capone MD LAB BLOOD ORDERABLES Fin al Result Performing Organization Address City/State/[facility] Co de Phone Number ANA [address] [facility] Department of Laboratories [place], [place] [id number] * eGFR (07/28/2024 6:48 AM CDT) eGFR 72 >=60 mL/min/1. 73 m2 Comment: Interpretive Data Reference Interval Normal >/= 90 mL/min/1.73m2 Mildly decreased* 60 - 89 mL/min/1.73m2 Mildly to moderately decreased 45 - 59 mL/min/1.73m2 Moderately to severely decreased 30 - 44 mL/min/1.73m2 Severely decreased 15 - 29 mL/min/1.73m2 Kidney Failure < 15 mL/min/1.73m2 *Relative to young adult level Estimated glomerular filtration rate is determined by the 2020 CKD-EPI equation recommended by the National Kidney Foundation (A Unifying Approach to GFR Estimation: Recommendations of the NKF-ASK Task Force on Reassessing the Inclusion of Race in Diagnosing Kidney Disease, JASN 2020). The CKD-EPI equation should not be used for patients with unstable renal function and has not been validated in children and those over 70. Current interpretive data was last reviewed 2021. Testing performed by: [address] [address] Blood 07/28/2024 6:48 AM CDT 07/28/2024 6:53 AM CDT Savannah Hernadez MD LAB BLOOD ORDERABLES Final Result ANA [facility] Department [place] [address] * (ABNORMAL) Differential, auto (07/28/2024 6:48 AM CDT) Neutrophil abs 8.15(H) 1.50 - 6.50 K/cumm Comment:Testing performed by : [address] [address] Imm gran abs 0.08 0.00 - 0.10 K/cumm ANA Comment:Testing performed by : [address] [address] Lymphocyte abs 2.27 0.80 - 3.30 K/cumm ANA Comment:Testing performed by : [address] [address] Monocyte abs 1.18(H) 0.20 - 0.80 K/cumm ANA Comment:Testing performed by : [address] [address] Eosinophil abs 0.34 0.00 - 0.50 K/cumm ANA Comment:Testing performed by : [address] [address] Basophil abs 0.07 0.00 - 0.10 K/cumm ANA Comment:Testing performed by : [address] [address] Neutrophil pct 67.3 % [facility] Comment: Interpretive Data Percent cell count reference ranges are not reported, since discordance with absolute values may lead to misinterpretation of CBC data. Current Interpretive Data was last revised on 2017. Testing performed by: [address] [address] Imm gran pct 0.7 % [facility] Comment: Interpretive Data Percent cell count reference ranges are not reported, since discordance with absolute values may lead to misinterpretation of CBC data. Current Interpretive Data was last revised on 2017. Testing performed by: [address] [address] Lymphocyte pct 18.8 % [facility] Comment: Interpretive Data Percent cell count reference ranges are not reported, since discordance with absolute values may lead to misinterpretation of CBC data. Current Interpretive Data was last revised on 2017. Testing performed by: [address] [address] Monocyte pct 9.8 % [facility] Comment: Interpretive Data Percent cell count reference ranges are not reported, since discordance with absolute values may lead to misinterpretation of CBC data. Current Interpretive Data was last revised on 2017. Testing performed by: [address] [address] Eosinophil pct 2.8 % [facility] Comment: Interpretive Data Percent cell count reference ranges are not reported, since discordance with absolute values may lead to misinterpretation of CBC data. Current Interpretive Data was last revised on 2017. Testing performed by: [address] [address] Basophil pct 0.6 % [facility] Comment: Interpretive Data Percent cell count reference ranges are not reported, since discordance with absolute values may lead to misinterpretation of CBC data. Current Interpretive Data was last revised on 2017. Testing performed by: [address] [address] Blood 07/28/2024 6:48 AM CDT 07/28/2024 6:53 AM CDT Savannah Hernadez MD LAB BLOOD ORDERABLES Final Result ANA [address] [facility] Department [place] [address] * (ABNORMAL) CBC with auto differential (07/28/2024 6:48 AM CDT) WBC 12.09(H) 3.80 - 9.90 K/cumm Comment:Testing performed by : [address] [address] Hgb 11.2(L) 11.9 - 15.5 g/dL ANA Comment:Testing performed by : [address] [address] Hct 34.4(L) 35.6 - 45.5 % ANA Comment:Testing performed by : [address] [address] Plt 573(H) 150 - 400 K/cumm ANA Comment:Testing performed by : [address] [address] MPV 8.3(L) 9.1 - 12.3 fL ANA Comment:Testing performed by : [address] [address] RBC 3.54(L) 3.90 - 5.20 M/cumm ANA Comment:Testing performed by : [address] [address] MCV 97.2(H) 81.3 - 96.4 fL ANA Comment:Testing performed by : [address] [address] MCH 31.6 27.1 - 33.3 pg ANA SPARROW Comment:Testing performed by : [address] [address] MCHC 32.6 32.3 - 35.7 g/dL ANA SPARROW Comment:Testing performed by : [address] [address] RDW CV 12.9 11.1 - 14.9 % ANA SPARROW Comment:Testing performed by : [address] [address] RDW SD 46.0 35.7 - 48.1 fL ANA SPARROW Comment:Testing performed by : [address] [address] NRBC abs 0.00 0.00 - 0.01 K/cumm ANA SPARROW Comment:Testing performed by : [address] [address] Blood 07/28/2024 6:48 AM CDT 07/28/2024 6:53 AM CDT Savannah Hernadez MD LAB BLOOD ORDERABLES Final Result ANA [address] Department [place] [address] * Basic metabolic panel (07/28/2024 6:48 AM CDT) Sodium 140 135 - 145 mmol/L Comment:Testing performed by : [address] [address] Potassium, pl 3.9 3.3 - 4.9 mmol/L ANA SPARROW Comment:Testing performed by : [address] [address] Chloride 107 97 - 110 mmol/L ANA SPARROW Comment:Testing performed by : [address] [address] CO2 22 22 - 32 mmol/L ANA SPARROW Comment:Testing performed by : [address] [address] Anion gap 11 2 - 15 mmol/L ANA SPARROW Comment:Testing performed by : [address] [address] BUN 17 6 - 25 mg/dL ANA SPARROW Comment:Testing performed by : [address] [place]., [address] Creatinine 0.79 0.60 - 1.10 mg/dL ANA Comment:Testing performed by : [address] [address] Glucose 103 70 - 199 mg/dL ANA Comment: Interpretive Data Fasting glucose >/= 126 mg/dl is diagnostic for diabetes. Fasting is defined as no caloric intake for at least 8 hours. Fasting glucose between 100 mg/dl to 125 mg/dl is diagnostic of prediabetes. In a patient with classic symptoms of hyperglycemia or hyperglycemic crisis, a random glucose >/= 200 mg/dl is diagnostic for diabetes. In the absence of unequivocal hyperglycemia, results should be confirmed by repeat testing. The classification and Diagnosis of Diabetes Diabetes Care 202; 46: S19-S40. Current interpretive data was last revised 2022. Testing performed by: [address] [address] Calcium 8.8 8.5 - 10.3 mg/dL ANA Comment:Testing performed by : [address] [address] Blood 07/28/2024 6:48 AM CDT 07/28/2024 6:53 AM CDT Savannah Hernadez MD LAB BLOOD ORDERABLES Final Result [facility] [address] [facility] Department [place] [address] * CT Head WO Contrast (07/25/2024 3:32 PM CDT) Anatomical Region Laterality Modality Head and Neck N/A Computed Tomogra phy 07/25/2024 4:12 PM CDT Narrative 07/25/2024 4:15 PM CDT EXAM DESCRIPTION: CT HEAD WO CONTRAST REASON FOR STUDY: Mental status change, unknown cause MSC Pt combative and verbally abusive TECHNIQUE: Axial images acquired through the brain without intravenous contrast. Images stored on PACS. Automated exposure control was used as a dose optimization technique for this examination. COMPARISON: CT head without contrast dated 06/18/2024, 03/22/2023 and 12/23/2021. MRI brain dated 06/19/2024 and 03/23/2023. FINDINGS: There is no acute intracranial hemorrhage or midline shift. There is diffuse cerebral and cerebellar parenchymal volume loss. No hydrocephalus. The basilar cisterns are maintained. 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 Elsewhere in the brain the subcortical and periventricular white matter low attenuation in the bilateral cerebral hemispheres is nonspecific but compatible with chronic microvascular ischemic type change in a patient of this age. Bilateral cataract eye surgeries. Mucosal thickening in the bilateral ethmoid air cells. Partially imaged completely opacified right maxillary sinus. The mastoid air cells are predominantly clear. There are vascular calcifications. No depressed calvarial fracture. IMPRESSION: 1. No acute intracranial hemorrhage or midline shift. 2. Chronic infarctions, chronic microvascular ischemic type white-matter changes and additional findings as above. THIS IS AN ELECTRONICALLY VERIFIED FINAL REPORT 07/25/2024 4:15 PM - Electronically signed by Aleksey Ca D.O. AP: AP Report ID: [id number] Reading Location: [id number] Procedure Note Aleksey Ca, DO - 07/25/2024 EXAM DESCRIPTION: CT HEAD WO CONTRAST REASON FOR STUDY: Mental status change, unknown cause MSC Pt combative and verbally abusive TECHNIQUE: Axial images acquired through the brain without intravenous contrast. Images stored on PACS. Automated exposure control was used asa dose optimization technique for this examination. COMPARISON: CT head without contrast dated 06/18/2024, 03/22/2023 and 12/23/2021. MRI brain dated 06/19/2024 and 03/23/2023. FINDINGS: There is no acute intracranial hemorrhage or midline shift. There is diffuse cerebral and cerebellar parenchymal volume loss. No hydrocephalus. The basilar cisterns are maintained. 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 Elsewhere in the brain the subcortical and periventricular white matter low attenuation in thebilateral cerebral hemispheres is nonspecific but compatible with chronicmicrovascular ischemic type change in a patient of this age. Bilateral cataract eye surgeries. Mucosal thickening in the bilateralethmoid air cells. Partially imaged completely opacified right maxillary sinus.The mastoid air cells are predominantly clear. There are vascularcalcifications. No depressed calvarial fracture. IMPRESSION: 1. No acute intracranial hemorrhage or midline shift. 2. Chronic infarctions, chronic microvascular ischemic type white-matter changes and additional findings as above. THIS IS AN ELECTRONICALLY VERIFIED FINAL REPORT 07/25/2024 4:15 PM - Electronically signed by Aleksey Ca D.O. AP: AP Report ID: [id number] Reading Location: [id number] Savannah Hernadez MD IMG CT NV OCEDURES Final Result * Dexa Axial Skeleton Bone Density 1 or 2 Site (07/25/2017 3:15 PM CDT) Anatomical Region Laterality Modality Body N/A Radiographic Rubina ging 07/25/2017 3:15 PM CDT Impressions 07/25/2017 4:15 PM CDT Low bone mass. Fracture risk assessment (FRAX): 10 year risk for a major osteoporotic fracture is 29 % 10 year risk for a hip fracture is 19 % The FRAX tool has not been validated in patients currently or previously treated with pharmacotherapy for osteoporosis. In such patients, clinical judgement must be exercised in interpreting FRAX scores as the fracture risk may be overestimated. Bone mineral density: Normal (T-score above or = -1.0) Low bone mass (T-score between -1.0 and -2.5) replaces the previously used term osteopenia Osteoporosis (T-score = or below -2.5) Medical evaluation for secondary causes of low bone mineral density may be appropriate. FRAX is a World Health Organization validated fracture risk assessment tool that calculates a person's 10 year probability of a major osteoporosis related fracture and hip fracture. According to the National Osteoporosis Foundation guidelines, postmenopausal women and men age 50 or older with low bone mass and a 10 year probability of a major osteoporosis related fracture = or greater than 20% or a 10 year probability of a hip fracture = or greater than 3% should be considered for treatment. For further information, including treatment recommendations, please refer to the 2013 ISCD Official Positions (http://www.iscd.org) and the NOF's Clinician's Guide to Prevention and Treatment of Osteoporosis (http://www.nof.org/professionals/clinical-guidelines) THIS IS AN ELECTRONICALLY VERIFIED FINAL REPORT 07/25/2017 4:12 PM - Electronically signed by Christina Pavon M.D. TB: TB Report ID: [id number] Reading Location: [id number] [EOD] Narrative 07/25/2017 4:15 PM CDT EXAM DESCRIPTION: Bone Density Hip/Spine (STD) COMPLETED DATE/TIME: 07/25/2017 3:45 pm REASON FOR STUDY: 81 y/o year old F with given history of screening. 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 This will serve as a new baseline. Acquisition of a new DXA machine precludes comparison with older exams due to differences in scan type. FINDINGS: AP LUMBAR SPINE L1-L4: Total BMD is 0.944 g/cm2 T-score is -0.9 LEFT HIP: Total BMD is 0.829 g/cm2 T-score is -0.9 Femoral neck BMD is 0.621 g/cm2 T-score is -2.1 Procedure Note Provider, MD Kvng - 08/16/2020 EXAM DESCRIPTION: Bone Density Hip/Spine (STD) COMPLETED DATE/TIME: 07/25/2017 3:45 pm REASON FOR STUDY: 81 y/o year old F with given history of screening. 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 This will serve as a new baseline. Acquisition of a new DXA machineprecludes comparison with older exams due to differences in scan type. FINDINGS: AP LUMBAR SPINE L1-L4: Total BMD is 0.944 g/cm2 T-score is -0.9 LEFT HIP: Total BMD is 0.829 g/cm2 T-score is -0.9 Femoral neck BMD is 0.621 g/cm2 T-score is -2.1 IMPRESSION: Low bone mass. Fracture risk assessment (FRAX): 10 year risk for a major osteoporotic fracture is 29 % 10 year risk for a hip fracture is 19 % The FRAX tool has not been validated in patients currently or previously treated with pharmacotherapy for osteoporosis. In such patients, clinical judgement must be exercised in interpreting FRAX scores as the fracturerisk may be overestimated. Bone mineral density: Normal (T-score above or = -1.0) Low bone mass (T-score between -1.0 and -2.5) replaces the previously used term osteopenia Osteoporosis (T-score = or below -2.5) Medical evaluation for secondary causes of low bone mineral density may be appropriate. FRAX is a World Health Organization validated fracture risk assessmenttool that calculates a person's 10 year probability of a major osteoporosisrelated fracture and hip fracture. According to the National OsteoporosisFoundation guidelines, postmenopausal women and men age 50 or older with low bonemass and a 10 year probability of a major osteoporosis related fracture = or greater than 20% or a 10 year probability of a hip fracture = or greaterthan 3% should be considered for treatment. For further information, including treatment recommendations, please referto the 2013 ISCD Official Positions (http://www.iscd.org) and the NOF's Clinician's Guide to Prevention and Treatment of Osteoporosis (http://www.nof.org/professionals/clinical-guidelines) THIS IS AN ELECTRONICALLY VERIFIED FINAL REPORT 07/25/2017 4:12 PM - Electronically signed by Christina Pavon M.D. TB: TB Report ID: [id number] Reading Location: [id number] [EOD] us TANNER Giron Jr. 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 06/23/2024 10:14 AM POLS T - Phys Order for PT Preferences * Full Code (Latest Code Status on File) Date Activated Date Inactivated Comments 08/20/2024 10:41 AM 08/31/2024 5:46 PM * Full Code Date Activated Date Inactivated Comments 07/24/2024 12:41 AM 07/28/2024 6:38 PM * Full Code Date Activated Date Inactivated Comments 06/18/2024 9:40 PM 06/22/2024 7:02 PM * Full Code Date Activated Date Inactivated Comments 06/18/2024 9:37 PM 06/18/2024 9:40 PM * Full Code Date Activated Date Inactivated Comments 06/02/2024 9:24 PM 06/10/2024 10:34 PM 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
--- OUTSIDE RECORDS SUMMARY | 2024-10-24 23:08 | XMS_ITS | Clinical Summary ---
Author Organization [address] Address [address] [place] [id number] Care Team Providers Care Clinical Science Liaison Name Role Phone Mandy Mancia MD Unavailable [phone] Washington Lopez MD Unavailable Audi Garcia MD Unavailable Allergies Active Allergy Reactions Criticality Noted Date [...] within 12 hours or as directed by . Left hip Active atorvastatin (LIPITOR) 20 mg [...] family have asked to be sent to [facility]. This will be affected and I have called report to the ER Dr. Sutton. Assessment & Plan (09/12/2024 8:24 AM CDT): This history is verified by granddaughter Leslie at the bedside and available records. Currently [...] Assessment & Plan (09/12/2024 8:28 AM CDT): Granddaughter Leslie notes that this has been an ongoing [...] transfer grandmother to the emergency room at [facility] for further evaluation. This is completed [...] time. Has sent message confirming this with ID pharmacology. Assessment & Plan (06/26/2024 9:55 PM CDT): Incision stable, minimal edema, no erythema. Patient reports pain is controlled, continue Tylenol 1000 mg t.i.d., p.r.n. tramadol. Completing ceftriaxone 2 g daily through 07/11/2024, doxycycline 100 mg b.i.d. through same date. Assessment & Plan (06/26/2024 3:23 PM CDT): This originally [place] [facility]. She is to follow up with Orthopedics. [...] PRN. Hand surgery to come over to [facility] to [place] sutures. PRN Tyl + PRN [...] Plan (06/11/2024 1:44 PM CDT): on MOCA. 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 No behaviors noted. Left wrist pain [...] for further evaluation, we will refer to [facility] Nonrheumatic mitral valve regurgitation 05/02/19 23 Hypercholesteremia [...] future Assessment & Plan (04/16/2022 2:17 PM FIRE SPRINKLER SERVICE TECHNICIAN): Patient was admitted to the hospital in [...] 24 Assessment & Plan (04/16/2022 2:13 PM FIRE SPRINKLER SERVICE TECHNICIAN): Continues to have nausea and vomiting after [...] above Assessment & Plan (04/16/2022 2:14 PM FIRE SPRINKLER SERVICE TECHNICIAN): Patient has chronic diarrhea alternating with constipation. Given her prior colonoscopies with sigmoid strictures, this may be related to obstructive type symptoms. -we will order stool studies rule out infectious etiology -plan for colonoscopy as above Acute cystitis without hematuria 06/05/2023 JUANITA (acute kidney injury) Encounters Date Type Department Care Team Description 10/07/2024 Telephone [facility] [address] [place] [address] [address] [place] [address] Debra Mueller 09/14/2024 NH/SNF Visit [facility] Post [facility] Care [address] [phone] Eliezer Tello MD JUANITA (acute kidney injury) (Primary Dx); Leukocytosis, unspecified type; Other ulcerative colitis with fistula (HCC); Essential (primary) hypertension 09/14/2024 Results Follow-Up [address] [phone] Eliezer Tello MD CBC without differential, Comprehensive metabolic panel, eGFR 09/14/2024 Orders Only [facility] [address] [place] [phone] Eliezer Tello MD 09/11/2024 NH/SNF Visit [facility] Post [address] [phone] Eliezer Tello MD Closed fracture dislocation of left wrist with routine healing, subsequent encounter (Primary Dx); Other ulcerative colitis with fistula (HCC); Diverticulitis; Essential (primary) hypertension; Dysuria; Anxiety and depression; Moderate dementia without behavioral disturbance, psychotic disturbance, mood disturbance, or anxiety, unspecified dementia type (HCC) 09/10/2024 Orders Only [facility] [address] [place] [phone] Eliezer Tello MD Arthralgia, unspecified joint (Primary Dx) 09/03/2024 Orders Only [facility] Cardiology [address] [facility] [place] [phone] Bryce Munoz MD 08/20/2024 4:47 AM CDT - 08/31/2024 1:41 PM CDT Hospital Encounter [facility] [address] [place] [address] Raz Miller MD Smith, MD Sara Ashley, [...] Pancreatic mass [K86.89] Discharge Disposition: Discharge to residential facility 07/23/2024 6:37 PM CDT - 07/28/2024 2:37 PM CDT Hospital Encounter [facility] [address] [place] [address] Henry Townsend DO Sada, Kahmalia-Kalee Conceptia, MD Gaspe Mudiyanselage, Nilupa Sewwandi, MD Singh, Anjanya Devendra, MD Fall, initial encounter (Primary Dx); Hematoma of left hip, initial encounter; Contusion of left knee, initial encounter; Acute cystitis with hematuria; Left wrist sprain, initial encounter; Generalized weakness; Altered mental status, unspecified altered mental status type; Acute encephalopathy Discharge Disposition: Discharge to residential facility from Last 3 Months Immunizations Immunization Administration Dates Next Due Influenza, Quadrivalent, Hig h Dose, Preservative Free, Intrr 03/27/2023,01/29/2022 Influenza, Quadrivalent, Spl it, Preservative Free, Intramuscular 01/09/2019,12/27/2016 Influenza, Trivalent, High D ose, Split, Preservative Free, Intramuscular 02/26/2018,02/27/2016 Moderna SARS-CoV-2 Monovalent Vaccination (12+ Y RS) 04/27/2020 Surgical History Surgery Date Site/Laterality Comments COLON SURGERY SINUS SURGERY APPENDECTOMY BREAST RECONSTRUCTION COLONOSCOPY Medical History Medical History Date Comments Peptic ulceration Diverticulitis Colitis Hypertension Acid reflux Osteoarthritis Breast cancer (HCC) Hyperlipidemia Depression Diverticulosis Irritable bowel syndrome Other ulcerative colitis with fistula (HCC) 08/30 Social History Tobacco Use Types Packs/Day Years Used Date Smoking Tobacco: Never Smokeless Tobacco: Never Tobacco Cessation:Counseling Given: Not Answered [facility] MeetMeities Answer Date Recorded In the past 12 months has [employer], gas, oil, or water [email or web address] threatened to shut off services in your [...] answer 08/21/2024 How often do you attend [facility] or latter day services? Patient unable to answer 08/21/2024 Do you belong to any clubs o r organizations such as advent groups, unions, fraternal or athletic groups, or [...] place to sleep or slept in a nursing home (including now)? No 03/27/2023 Housing Stability Vital [...] any time in the past 12 m [facility], were you homeless or living in a nursing home (including now)? No 08/21/2024 Personal Safety Answer [...] on file Sexual Orientation Not on file Obstetrics History Last Filed Vital Signs Vital Sign Reading [...] 08/22/2024 8:57 AM CDT Plan of Treatment Health Maintenance Due Date Last Done Comments DTaP/Tdap/Td Vaccine (1 - Tdap) 10/22/1946 Hepatitis B Screening 1953 Pneumococcal vaccine 65+ (1 of 1 - PCV) 1986 Zoster Vaccine (1 of 2) 1986 Osteoporosis Screening-Bone Density Scan 07/26/2019 07/25/2017 Covid-19 Vaccine (4 - 2023-2 5 season) 2023 01/29/2022, 05/25/2020, 04/27/2020 Depression Screening 06/23/2024 06/24/2023, 01/16/2021, 01/16/2021 Well Visit 65+ 06/23/2024 06/24/2023, 03/2 07/2023, 01/16/2021 Influenza Vaccine (#1) 2024 , 01/29/2022, 01/09/2019, Additional history exists Fall Risk Assessment 08/31/2025 08/31/2024, 06/24/2023, 01/16/2021 Goals Goal Patient Goal Type Associated Problems Recent Progress Patient-Stated? Author CLARA General Goal - Patient schedules and keeps appointments with all recommended providers [facility] Care Management No Ozersky, Stephania A., RN Note: Problem: Potential for medical complications [...] and executes self-care activities to utmost capability [facility] Care Management Stephania Alatorre RN Note: Problem: [...] no additional falls during Care Management program [facility] Care Management Stephania Alatorre RN Note: Problem: [...] is agreeable. Medical Devices Implanted Type Area Shipping Room Helper Device Identifier Shelf Expiration Date Model / [...] * (ABNORMAL) eGFR (09/14/2024 4:48 AM CDT) eGFR 55(L) >=60 mL/min/1. 73 m2 ANA Comment: Interpretive Data Reference Interval Normal >/= [...] Current interpretive data was last reviewed 2021. [facility], [address] [place] [address], [place]., [address] Blood 09/14/2024 4:48 AM CDT 09/14/2024 5:10 AM CDT us Eliezer Tello MD LAB BLOOD ORDERABLES Final R esult [facility] [address] [facility] [facility] Department [place] [address] * (ABNORMAL) CBC without differential (09/14/2024 4:48 AM CDT) WBC 21.06(H) 3.80 - 9.90 K/cumm ANA Comment:[address], [address] Hgb 11.2(L) 11.9 - 15.5 g/dL [facility] Comment:[address], [address] Hct 34.0(L) 35.6 - 45.5 % [facility] Comment:[address], [address] Plt 623(H) 150 - 400 K/cumm [facility] Comment:[address] [address] MPV 8.8(L) 9.1 - 12.3 fL [facility] MH Comment:[address], [address] RBC 3.60(L) 3.90 - 5.20 M/cumm [facility] Comment:[address], [address] MCV 94.4 81.3 - 96.4 fL [facility] Comment:[address], [address] MCH 31.1 27.1 - 33.3 pg [facility] Comment:[address], [address] MCHC 32.9 32.3 - 35.7 g/dL [facility] Comment:[address], [address] RDW CV 14.3 11.1 - 14.9 % [facility] Comment:[address], [address] RDW SD 49.7(H) 35.7 - 48.1 fL [facility] Comment:[address], [address] NRBC abs 0.00 0.00 - 0.01 K/cumm ANA Comment:[address] [address] Blood 09/14/2024 4:48 AM CDT 09/14/2024 5:10 AM CDT us Eliezer Tello MD LAB BLOOD ORDERABLES Final R esult [facility] [address] [facility] Department [place] [address] * (ABNORMAL) Comprehensive metabolic panel (09/14/2024 4:48 AM CDT) Sodium 136 135 - 145 mmol/L ANA Comment:[address] [address] Potassium, pl 4.6 3.3 - 4.9 mmol/L ANA Comment:[address] [address] Chloride 101 97 - 110 mmol/L ANA Comment:[address] [address] CO2 23 22 - 32 mmol/L ANA Comment:[address] [address] Anion gap 12 2 - 15 mmol/L ANA Comment:[address] [address] BUN 23 6 - 25 mg/dL ANA Comment:[address] [address] Creatinine 0.99 0.60 - 1.10 mg/dL ANA Comment:[address] [address] Glucose 83 70 - 199 mg/dL ANA Comment: Interpretive [...] Current interpretive data was last revised 2022. [facility], [address] [place]., [address] Calcium 9.0 8.5 - 10.3 mg/dL ANA Comment:[facility], [address] [place] [address]., [address] Bilirubin, total 0.3 0.1 - 1.2 mg/dL ANA Comment:[address] [address] Protein, pl 6.4(L) 6.5 - 8.5 g/dL [facility] Comment:[address] [address] Albumin 3.1(L) 3.5 - 5.0 g/dL [facility] Comment:[address] [address] Alk phos 114 40 - 130 Units/L [facility] Comment:[address] [address] ALT 19 7 - 45 Units/L [facility] Comment:[address] [address] AST 37 10 - 45 Units/L [facility] Comment:[address] [address] Blood 09/14/2024 4:48 AM CDT 09/14/2024 5:10 AM CDT Eliezer Tello MD LAB BLOOD ORDERABLES Final R esult ANA [address] Department [place] [address] * eGFR (08/31/2024 6:42 AM CDT) eGFR [...] was last reviewed 2021. Testing performed by: [address] [address] Blood 08/31/2024 6:42 AM CDT 08/31/2024 6:59 AM CDT Kathrine Stephens NP LAB BLOOD ORDERABLES Final Result Performing Organization Address City/State/[facility] Co de Phone Number ANA [address] Department [place] [address] * (ABNORMAL) Differential, auto (08/31/2024 6:42 AM CDT) Neutrophil abs 6.98(H) 1.50 - 6.50 K/cumm Comment:Testing performed by : [address] [address] Imm gran abs 0.14(H) 0.00 - 0.10 K/cumm ANA Comment:Testing performed by : [address] [address] Lymphocyte abs 1.75 0.80 - 3.30 K/cumm ANA Comment:Testing performed by : [address] [address] Monocyte abs 1.54(H) 0.20 - 0.80 K/cumm ANA Comment:Testing performed by : [address] [address] Eosinophil abs 0.56(H) 0.00 - 0.50 K/cumm ANA Comment:Testing performed by : [address] [address] Basophil abs 0.10 0.00 - 0.10 K/cumm ANA Comment:Testing performed by : [address] [address] Neutrophil pct 63.0 % ANA Comment: Interpretive Data Percent cell count reference ranges are not reported, since discordance with absolute values may lead to misinterpretation of CBC data. Current Interpretive Data was last revised on 2017. Testing performed by: [address] [address] Imm gran pct 1.3 % ANA Comment: Interpretive Data Percent cell count reference ranges are not reported, since discordance with absolute values may lead to misinterpretation of CBC data. Current Interpretive Data was last revised on 2017. Testing performed by: [address] [address] Lymphocyte pct 15.8 % ANA Comment: Interpretive Data Percent cell count reference ranges are not reported, since discordance with absolute values may lead to misinterpretation of CBC data. Current Interpretive Data was last revised on 2017. Testing performed by: [address] [address] Monocyte pct 13.9 % ANA Comment: Interpretive Data Percent cell count reference ranges are not reported, since discordance with absolute values may lead to misinterpretation of CBC data. Current Interpretive Data was last revised on 2017. Testing performed by: [address] [address] Eosinophil pct 5.1 % ANA Comment: Interpretive Data Percent cell count reference ranges are not reported, since discordance with absolute values may lead to misinterpretation of CBC data. Current Interpretive Data was last revised on 2017. Testing performed by: [address] [address] Basophil pct 0.9 % ANA Comment: Interpretive Data Percent cell count reference ranges are not reported, since discordance with absolute values may lead to misinterpretation of CBC data. Current Interpretive Data was last revised on 2017. Testing performed by: [address] [address] Blood 08/31/2024 6:42 AM CDT 08/31/2024 6:59 AM CDT Kathrine Stephens PILATES COORDINATOR LAB BLOOD ORDERABLES Final Result [facility] [address] [facility] Department [place] [address] * (ABNORMAL) CBC with auto differential (08/31/2024 6:42 AM CDT) WBC 11.07(H) 3.80 - 9.90 K/cumm Comment:Testing performed by : [address] [address] Hgb 11.2(L) 11.9 - 15.5 g/dL ANA Comment:Testing performed by : [address], [address] Hct 33.9(L) 35.6 - 45.5 % ANA Comment:Testing performed by : [address] [address] Plt 504(H) 150 - 400 K/cumm ANA Comment:Testing performed by : [address] [address] MPV 8.9(L) 9.1 - 12.3 fL ANA Comment:Testing performed by : [address] [address] RBC 3.66(L) 3.90 - 5.20 M/cumm ANA Comment:Testing performed by : [address] [address] MCV 92.6 81.3 - 96.4 fL ANA Comment:Testing performed by : [address] [address] MCH 30.6 27.1 - 33.3 pg ANA Comment:Testing performed by : [address] [address] MCHC 33.0 32.3 - 35.7 g/dL ANA SPARROW Comment:Testing performed by : [address] [address] RDW CV 15.3(H) 11.1 - 14.9 % ANA SPARROW Comment:Testing performed by : [address] [address] RDW SD 51.8(H) 35.7 - 48.1 fL ANA SPARROW Comment:Testing performed by : [address] [address] NRBC abs 0.00 0.00 - 0.01 K/cumm ANA SPARROW Comment:Testing performed by : [address] [address] Blood 08/31/2024 6:42 AM CDT 08/31/2024 6:59 AM CDT Kathrine Stephens NP LAB BLOOD ORDERABLES Final Result ANA [address] [facility] Department [place] [address] * Basic metabolic panel (08/31/2024 6:42 AM CDT) Sodium 136 135 - 145 mmol/L Comment:Testing performed by : [address] [address] Potassium, pl 3.9 3.3 - 4.9 mmol/L ANA SPARROW Comment:Testing performed by : [address] [address] Chloride 102 97 - 110 mmol/L ANA SPARROW Comment:Testing performed by : [address] [address] CO2 23 22 - 32 mmol/L ANA SPARROW Comment:Testing performed by : [address] [address] Anion gap 11 2 - 15 mmol/L ANA SPARROW Comment:Testing performed by : [address] [address] BUN 12 6 - 25 mg/dL ANA SPARROW Comment:Testing performed by : [address] [address] Creatinine 0.68 0.60 - 1.10 mg/dL ANA SPARROW Comment:Testing performed by : [address] [address] Glucose 88 70 - 199 mg/dL ANA Comment: Interpretive [...] was last revised 2022. Testing performed by: [address] [address] Calcium 9.1 8.5 - 10.3 mg/dL ANA Comment:Testing performed by : [address] [address] Blood 08/31/2024 6:42 AM CDT 08/31/2024 6:59 AM CDT us Kathrine Stephens NP LAB BLOOD ORDERABLES Final Result ANA [address] [facility] Department [place] [address] * eGFR (08/30/2024 8:31 AM CDT) eGFR [...] was last reviewed 2021. Testing performed by: [address] [address] Blood 08/30/2024 8:31 AM CDT 08/30/2024 8:52 AM CDT Kathrine Stephens NP LAB BLOOD ORDERABLES Final Result [place] [address] [facility] Department [place] [address] * (ABNORMAL) Differential, auto (08/30/2024 8:31 AM CDT) Neutrophil abs 8.00(H) 1.50 - 6.50 K/cumm Comment:Testing performed by : [address] [address] Imm gran abs 0.10 0.00 - 0.10 K/cumm ANA Comment:Testing performed by : [address] [address] Lymphocyte abs 1.82 0.80 - 3.30 K/cumm ANA Comment:Testing performed by : [address] [address] Monocyte abs 1.23(H) 0.20 - 0.80 K/cumm ANA Comment:Testing performed by : [address] [address] Eosinophil abs 0.32 0.00 - 0.50 K/cumm ANA Comment:Testing performed by : [address] [address] Basophil abs 0.06 0.00 - 0.10 K/cumm ANA Comment:Testing performed by : [address] [address] Neutrophil pct 69.3 % ANA Comment: Interpretive Data Percent cell count reference ranges are not reported, since discordance with absolute values may lead to misinterpretation of CBC data. Current Interpretive Data was last revised on 2017. Testing performed by: [address] [address] Imm gran pct 0.9 % ANA Comment: Interpretive Data Percent cell count reference ranges are not reported, since discordance with absolute values may lead to misinterpretation of CBC data. Current Interpretive Data was last revised on 2017. Testing performed by: [address] [address] Lymphocyte pct 15.8 % [facility] Comment: Interpretive Data Percent cell count reference ranges are not reported, since discordance with absolute values may lead to misinterpretation of CBC data. Current Interpretive Data was last revised on 2017. Testing performed by: [address] [address] Monocyte pct 10.7 % [facility] Comment: Interpretive Data Percent cell count reference ranges are not reported, since discordance with absolute values may lead to misinterpretation of CBC data. Current Interpretive Data was last revised on 2017. Testing performed by: [address] [address] Eosinophil pct 2.8 % [facility] Comment: Interpretive Data Percent cell count reference ranges are not reported, since discordance with absolute values may lead to misinterpretation of CBC data. Current Interpretive Data was last revised on 2017. Testing performed by: [address] [address] Basophil pct 0.5 % [facility] Comment: Interpretive Data Percent cell count reference ranges are not reported, since discordance with absolute values may lead to misinterpretation of CBC data. Current Interpretive Data was last revised on 2017. Testing performed by: [address] [address] Blood 08/30/2024 8:31 AM CDT 08/30/2024 8:52 AM CDT us Kathrine Stephens NP LAB BLOOD ORDERABLES Final Result ANA [address] [facility] Department [place] [address] * (ABNORMAL) CBC with auto differential (08/30/2024 8:31 AM CDT) WBC 11.53(H) 3.80 - 9.90 K/cumm Comment:Testing performed by : [address] [address] Hgb 11.1(L) 11.9 - 15.5 g/dL ANA Comment:Testing performed by : [address] [address] Hct 34.0(L) 35.6 - 45.5 % ANA Comment:Testing performed by : [address] [address] Plt 511(H) 150 - 400 K/cumm ANA Comment:Testing performed by : [address] [address] MPV 8.7(L) 9.1 - 12.3 fL ANA Comment:Testing performed by : [address] [address] RBC 3.59(L) 3.90 - 5.20 M/cumm ANA Comment:Testing performed by : [address] [address] MCV 94.7 81.3 - 96.4 fL ANA Comment:Testing performed by : [address] [address] MCH 30.9 27.1 - 33.3 pg ANA SPARROW Comment:Testing performed by : [address] [address] MCHC 32.6 32.3 - 35.7 g/dL ANA Comment:Testing performed by : [address], [address] RDW CV 15.1(H) 11.1 - 14.9 % ANA Comment:Testing performed by : [address] [address] RDW SD 51.8(H) 35.7 - 48.1 fL ANA SPARROW Comment:Testing performed by : [address] [address] NRBC abs 0.00 0.00 - 0.01 K/cumm ANA Comment:Testing performed by : [address] [address] Blood 08/30/2024 8:31 AM CDT 08/30/2024 8:52 AM CDT Kathrine Stephens NP LAB BLOOD ORDERABLES Final Result Performing Organization Address City/State/[facility] Co de Phone Number ANA [facility] Department [place] [address] * Basic metabolic panel (08/30/2024 8:31 AM CDT) Sodium 137 135 - 145 mmol/L Comment:Testing performed by : [address] [address] Potassium, pl 3.3 3.3 - 4.9 mmol/L ANA Comment:Testing performed by : [address] [address] Chloride 101 97 - 110 mmol/L ANA Comment:Testing performed by : [address] [address] CO2 27 22 - 32 mmol/L ANA Comment:Testing performed by : [address] [address] Anion gap 9 2 - 15 mmol/L ANA Comment:Testing performed by : [address] [address] BUN 12 6 - 25 mg/dL ANA Comment:Testing performed by : [address] [address] Creatinine 0.70 0.60 - 1.10 mg/dL ANA SPARROW Comment:Testing performed by : [address] [address] Glucose 82 70 - 199 mg/dL ANA [...] was last revised 2022. Testing performed by: [address] [address] Calcium 8.9 8.5 - 10.3 mg/dL ANA Comment:Testing performed by : [address] [address] Blood 08/30/2024 8:31 AM CDT 08/30/2024 8:52 AM CDT Kathrine Stephens NP LAB BLOOD ORDERABLES Final Result ANA [address] [facility] Department of Laboratories [place], [place] [id number] * eGFR (08/29/2024 8:32 AM CDT) eGFR 66 >=60 mL/min/1. 73 m2 Comment: [...] was last reviewed 2021. Testing performed by: [address] [address] Blood 08/29/2024 8:32 AM CDT 08/29/2024 8:56 AM CDT us Kathrine Stephens PILATES COORDINATOR LAB BLOOD ORDERABLES Final Result ANA [address] [facility] Department [place] [address] * (ABNORMAL) Differential, auto (08/29/2024 8:32 AM CDT) Neutrophil abs 6.63(H) 1.50 - 6.50 K/cumm Comment:Testing performed by : [address] [address] Imm gran abs 0.14(H) 0.00 - 0.10 K/cumm ANA Comment:Testing performed by : [address] [address] Lymphocyte abs 2.02 0.80 - 3.30 K/cumm ANA Comment:Testing performed by : [address] [address] Monocyte abs 0.99(H) 0.20 - 0.80 K/cumm ANA Comment:Testing performed by : [address] [address] Eosinophil abs 0.84(H) 0.00 - 0.50 K/cumm ANA Comment:Testing performed by : [address] [address] Basophil abs 0.11(H) 0.00 - 0.10 K/cumm ANA Comment:Testing performed by : [address] [address] Neutrophil pct 61.9 % [facility] Comment: Interpretive Data Percent cell count reference ranges are not reported, since discordance with absolute values may lead to misinterpretation of CBC data. Current Interpretive Data was last revised on 2017. Testing performed by: [address] [address] Imm gran pct 1.3 % [facility] Comment: Interpretive Data Percent cell count reference ranges are not reported, since discordance with absolute values may lead to misinterpretation of CBC data. Current Interpretive Data was last revised on 2017. Testing performed by: [address] [address] Lymphocyte pct 18.8 % [facility] Comment: Interpretive Data Percent cell count reference ranges are not reported, since discordance with absolute values may lead to misinterpretation of CBC data. Current Interpretive Data was last revised on 2017. Testing performed by: [address] [address] Monocyte pct 9.2 % [facility] Comment: Interpretive Data Percent cell count reference ranges are not reported, since discordance with absolute values may lead to misinterpretation of CBC data. Current Interpretive Data was last revised on 2017. Testing performed by: [address] [address] Eosinophil pct 7.8 % [facility] Comment: Interpretive Data Percent cell count reference ranges are not reported, since discordance with absolute values may lead to misinterpretation of CBC data. Current Interpretive Data was last revised on 2017. Testing performed by: [address] [address] Basophil pct 1.0 % [facility] Comment: Interpretive Data Percent cell count reference ranges are not reported, since discordance with absolute values may lead to misinterpretation of CBC data. Current Interpretive Data was last revised on 2017. Testing performed by: [address] [address] Blood 08/29/2024 8:32 AM CDT 08/29/2024 8:56 AM CDT us Kathrine Diaz Angelo PILATES COORDINATOR LAB BLOOD ORDERABLES Final Result ANA [address] [facility] Department [place] [address] * (ABNORMAL) CBC with auto differential (08/29/2024 8:32 AM CDT) WBC 10.73(H) 3.80 - 9.90 K/cumm Comment:Testing performed by : [address] [address] Hgb 12.0 11.9 - 15.5 g/dL ANA Comment:Testing performed by : [address], [address] Hct 37.1 35.6 - 45.5 % ANA Comment:Testing performed by : [address], [address] Plt 589(H) 150 - 400 K/cumm ANA Comment:Testing performed by : [address] [address] MPV 8.9(L) 9.1 - 12.3 fL ANA Comment:Testing performed by : [address], [address] RBC 3.92 3.90 - 5.20 M/cumm ANA SPARROW Comment:Testing performed by : [address] [address] MCV 94.6 81.3 - 96.4 fL ANA Comment:Testing performed by : [address] [address] MCH 30.6 27.1 - 33.3 pg ANA Comment:Testing performed by : [address], [address] MCHC 32.3 32.3 - 35.7 g/dL ANA Comment:Testing performed by : [address], [address] RDW CV 15.1(H) 11.1 - 14.9 % ANA Comment:Testing performed by : [address], [address] RDW SD 52.1(H) 35.7 - 48.1 fL ANA SPARROW Comment:Testing performed by : [address] [address] NRBC abs 0.00 0.00 - 0.01 K/cumm ANA SPARROW Comment:Testing performed by : [address] [address] Blood 08/29/2024 8:32 AM CDT 08/29/2024 8:56 AM CDT Kathrine Stephens NP LAB BLOOD ORDERABLES Final Result ANA SPARROW [facility] Department [place] [address] * Basic metabolic panel (08/29/2024 8:32 AM CDT) Sodium 137 135 - 145 mmol/L Comment:Testing performed by : [address] [address] Potassium, pl 3.5 3.3 - 4.9 mmol/L ANA Comment:Testing performed by : [address] [address] Chloride 102 97 - 110 mmol/L ANA Comment:Testing performed by : [address] [address] CO2 25 22 - 32 mmol/L ANA Comment:Testing performed by : [address] [address] Anion gap 10 2 - 15 mmol/L ANA Comment:Testing performed by : [address] [address] BUN 16 6 - 25 mg/dL ANA Comment:Testing performed by : [address] [address] Creatinine 0.85 0.60 - 1.10 mg/dL ANA Comment:Testing performed by : [address], [address] Glucose 95 70 - 199 mg/dL ANA SPARROW Comment: [...] was last revised 2022. Testing performed by: [facility], [address] [place] [address]., [address] Calcium 9.2 8.5 - 10.3 mg/dL ANA SPARROW Comment:Testing performed by : [facility], [address] [place] [address]., [address] Blood 08/29/2024 8:32 AM CDT 08/29/2024 8:56 AM CDT Kathrine Stephens NP LAB BLOOD ORDERABLES Final Result ANA [address] [facility] Department [place] [address] * eGFR (08/28/2024 6:38 AM CDT) eGFR [...] was last reviewed 2021. Testing performed by: [address] [address] Blood 08/28/2024 6:38 AM CDT 08/28/2024 6:45 AM CDT Kathrine Stephens NP LAB BLOOD ORDERABLES Final Result ANA [address] [facility] Department [place] [address] * (ABNORMAL) Differential, auto (08/28/2024 6:38 AM CDT) Neutrophil abs 5.86 1.50 - 6.50 K/cumm Comment:Testing performed by : [address] [address] Imm gran abs 0.10 0.00 - 0.10 K/cumm ANA Comment:Testing performed by : [address] [address] Lymphocyte abs 2.44 0.80 - 3.30 K/cumm ANA Comment:Testing performed by : [address] [address] Monocyte abs 1.20(H) 0.20 - 0.80 K/cumm ANA Comment:Testing performed by : [address] [address] Eosinophil abs 0.78(H) 0.00 - 0.50 K/cumm ANA Comment:Testing performed by : [address] [address] Basophil abs 0.08 0.00 - 0.10 K/cumm ANA Comment:Testing performed by : [address] [address] Neutrophil pct 55.9 % ANA Comment: Interpretive Data Percent cell count reference ranges are not reported, since discordance with absolute values may lead to misinterpretation of CBC data. Current Interpretive Data was last revised on 2017. Testing performed by: [address] [address] Imm gran pct 1.0 % [facility] Comment: Interpretive Data Percent cell count reference ranges are not reported, since discordance with absolute values may lead to misinterpretation of CBC data. Current Interpretive Data was last revised on 2017. Testing performed by: [address] [address] Lymphocyte pct 23.3 % [facility] Comment: Interpretive Data Percent cell count reference ranges are not reported, since discordance with absolute values may lead to misinterpretation of CBC data. Current Interpretive Data was last revised on 2017. Testing performed by: [address] [address] Monocyte pct 11.5 % [facility] Comment: Interpretive Data Percent cell count reference ranges are not reported, since discordance with absolute values may lead to misinterpretation of CBC data. Current Interpretive Data was last revised on 2017. Testing performed by: [address] [address] Eosinophil pct 7.5 % [facility] Comment: Interpretive Data Percent cell count reference ranges are not reported, since discordance with absolute values may lead to misinterpretation of CBC data. Current Interpretive Data was last revised on 2017. Testing performed by: [address] [address] Basophil pct 0.8 % [facility] Comment: Interpretive Data Percent cell count reference ranges are not reported, since discordance with absolute values may lead to misinterpretation of CBC data. Current Interpretive Data was last revised on 2017. Testing performed by: [address] [address] Blood 08/28/2024 6:38 AM CDT 08/28/2024 6:45 AM CDT us Kathrine Stephens NP LAB BLOOD ORDERABLES Final Result ANA [address] [facility] Department [place] [address] * (ABNORMAL) CBC with auto differential (08/28/2024 6:38 AM CDT) [facility] Signature WBC 10.46(H) 3.80 - 9.90 K/cumm Comment:Testing performed by : [address] [address] Hgb 11.6(L) 11.9 - 15.5 g/dL ANA Comment:Testing performed by : [address] [address] Hct 35.1(L) 35.6 - 45.5 % ANA Comment:Testing performed by : [address] [address] Plt 480(H) 150 - 400 K/cumm ANA Comment:Testing performed by : [address] [address] MPV 8.7(L) 9.1 - 12.3 fL ANA Comment:Testing performed by : [address] [address] RBC 3.76(L) 3.90 - 5.20 M/cumm ANA Comment:Testing performed by : [address] [address] MCV 93.4 81.3 - 96.4 fL ANA Comment:Testing performed by : [address] [address] MCH 30.9 27.1 - 33.3 pg ANA Comment:Testing performed by : [address] [address] MCHC 33.0 32.3 - 35.7 g/dL ANA Comment:Testing performed by : [address], [address] RDW CV 14.8 11.1 - 14.9 % ANA Comment:Testing performed by : [address] [address] RDW SD 50.4(H) 35.7 - 48.1 fL ANA Comment:Testing performed by : [address] [place]., [address] NRBC abs 0.00 0.00 - 0.01 K/cumm ANA Comment:Testing performed by : [address] [address] Blood 08/28/2024 6:38 AM CDT 08/28/2024 6:45 AM CDT Kathrine Stephens NP LAB BLOOD ORDERABLES Final Result ANA [address] [facility] Department [place] [address] * Basic metabolic panel (08/28/2024 6:38 AM CDT) Sodium 137 135 - 145 mmol/L Comment:Testing performed by : [address] [address] Potassium, pl 3.5 3.3 - 4.9 mmol/L ANA Comment:Testing performed by : [address] [address] Chloride 102 97 - 110 mmol/L ANA Comment:Testing performed by : [address] [address] CO2 24 22 - 32 mmol/L ANA Comment:Testing performed by : [address] [address] Anion gap 11 2 - 15 mmol/L ANA Comment:Testing performed by : [address] [address] BUN 10 6 - 25 mg/dL ANA Comment:Testing performed by : [address] [address] Creatinine 0.72 0.60 - 1.10 mg/dL ANA Comment:Testing performed by : [address] [address] Glucose 94 70 - 199 mg/dL ANA [...] was last revised 2022. Testing performed by: [facility], [address] [place] [address]., [address] Calcium 8.8 8.5 - 10.3 mg/dL ANA SPARROW Comment:Testing performed by : [address] [address] Blood 08/28/2024 6:38 AM CDT 08/28/2024 6:45 AM CDT Kathrine Stephens NP LAB BLOOD ORDERABLES Final Result ANA SPARROW [address] [facility] Department [place] [address] * eGFR (08/27/2024 6:24 AM CDT) eGFR [...] was last reviewed 2021. Testing performed by: [address] [place]., [address] Blood 08/27/2024 6:24 AM CDT 08/27/2024 6:45 AM CDT Denismagdi Diaz Angelo HOPPER LAB BLOOD ORDERABLES Final Result [facility] [address] [facility] Department [place] [address] * (ABNORMAL) Differential, auto (08/27/2024 6:24 AM CDT) Neutrophil abs 5.54 1.50 - 6.50 K/cumm Comment:Testing performed by : [address] [address] Imm gran abs 0.13(H) 0.00 - 0.10 K/cumm ANA Comment:Testing performed by : [address] [address] Lymphocyte abs 2.08 0.80 - 3.30 K/cumm NAA Comment:Testing performed by : [address] [address] Monocyte abs 1.05(H) 0.20 - 0.80 K/cumm ANA Comment:Testing performed by : [address] [address] Eosinophil abs 0.60(H) 0.00 - 0.50 K/cumm ANA Comment:Testing performed by : [address] [address] Basophil abs 0.08 0.00 - 0.10 K/cumm ANA Comment:Testing performed by : [address] [address] Neutrophil pct 58.5 % ANA Comment: Interpretive Data Percent cell count reference ranges are not reported, since discordance with absolute values may lead to misinterpretation of CBC data. Current Interpretive Data was last revised on 2017. Testing performed by: [address] [address] Imm gran pct 1.4 % [facility] Comment: Interpretive Data Percent cell count reference ranges are not reported, since discordance with absolute values may lead to misinterpretation of CBC data. Current Interpretive Data was last revised on 2017. Testing performed by: [address] [address] Lymphocyte pct 21.9 % [facility] Comment: Interpretive Data Percent cell count reference ranges are not reported, since discordance with absolute values may lead to misinterpretation of CBC data. Current Interpretive Data was last revised on 2017. Testing performed by: [address] [address] Monocyte pct 11.1 % [facility] Comment: Interpretive Data Percent cell count reference ranges are not reported, since discordance with absolute values may lead to misinterpretation of CBC data. Current Interpretive Data was last revised on 2017. Testing performed by: [address] [address] Eosinophil pct 6.3 % [facility] Comment: Interpretive Data Percent cell count reference ranges are not reported, since discordance with absolute values may lead to misinterpretation of CBC data. Current Interpretive Data was last revised on 2017. Testing performed by: [address] [address] Basophil pct 0.8 % [facility] Comment: Interpretive Data Percent cell count reference ranges are not reported, since discordance with absolute values may lead to misinterpretation of CBC data. Current Interpretive Data was last revised on 2017. Testing performed by: [address] [address] Blood 08/27/2024 6:24 AM CDT 08/27/2024 6:46 AM CDT Kathrine Stephens NP LAB BLOOD ORDERABLES Final Result ANA SPARROW [address] [facility] Department [place] [address] * (ABNORMAL) CBC with auto differential (08/27/2024 6:24 AM CDT) WBC 9.48 3.80 - 9.90 K/cumm Comment:Testing performed by : [address] [address] Hgb 10.3(L) 11.9 - 15.5 g/dL ANA Comment:Testing performed by : [address] [address] Hct 32.0(L) 35.6 - 45.5 % ANA Comment:Testing performed by : [address] [address] Plt 465(H) 150 - 400 K/cumm [facility] Comment:Testing performed by : [address] [address] MPV 8.6(L) 9.1 - 12.3 fL [facility] Comment:Testing performed by : [address] [address] RBC 3.45(L) 3.90 - 5.20 M/cumm ANA Comment:Testing performed by : [address] [address] MCV 92.8 81.3 - 96.4 fL [facility] Comment:Testing performed by : [address] [address] MCH 29.9 27.1 - 33.3 pg [facility] Comment:Testing performed by : [address] [address] MCHC 32.2(L) 32.3 - 35.7 g/dL ANA Comment:Testing performed by : [address] [address] RDW CV 14.9 11.1 - 14.9 % ANA Comment:Testing performed by : [address] [address] RDW SD 49.8(H) 35.7 - 48.1 fL [facility] Comment:Testing performed by : [address] [address] NRBC abs 0.00 0.00 - 0.01 K/cumm ANA Comment:Testing performed by : [address] [address] Blood 08/27/2024 6:24 AM CDT 08/27/2024 6:46 AM CDT Kathrine Stephens PILATES COORDINATOR LAB BLOOD ORDERABLES Final Result Performing Organization Address City/[facility] Co de Phone Number [address] [address] * Magnesium (08/27/2024 6:24 AM CDT) Pathologist [facility] Magnesium 1.6 1.4 - 2.5 mg/dL Comment:Testing performed by : [address] [address] Blood 08/27/2024 6:24 AM CDT 08/27/2024 6:45 AM CDT us Lance Acosta MD LAB BLOOD ORDERABLES Jolanta l Result Performing Organization Address City/[facility] Co de Phone Number [address] [address] * Basic metabolic panel (08/27/2024 6:24 AM CDT) Pathologist [facility] Sodium 136 135 - 145 mmol/L Comment:Testing performed by : [address] [address] Potassium, pl 3.8 3.3 - 4.9 mmol/L ANA Comment:Testing performed by : [address] [address] Chloride 102 97 - 110 mmol/L ANA Comment:Testing performed by : [address] [address] CO2 25 22 - 32 mmol/L ANA Comment:Testing performed by : [address] [address] Anion gap 9 2 - 15 mmol/L ANA Comment:Testing performed by : [address] [address] BUN 8 6 - 25 mg/dL ANA Comment:Testing performed by : [address] [address] Creatinine 0.69 0.60 - 1.10 mg/dL ANA Comment:Testing performed by : [address] [address] Glucose 89 70 - 199 mg/dL ANA Comment: Interpretive [...] was last revised 2022. Testing performed by: [address] [address] Calcium 8.5 8.5 - 10.3 mg/dL ANA Comment:Testing performed by : [address] [address] Blood 08/27/2024 6:24 AM CDT 08/27/2024 6:45 AM CDT Kathrine Stephens NP LAB BLOOD ORDERABLES Final Result Performing Organization Address City/State/[facility] Co de Phone Number ANA [address] [facility] Department [place] [address] * eGFR (08/26/2024 5:30 AM CDT) eGFR [...] was last reviewed 2021. Testing performed by: [address] [address] Blood 08/26/2024 5:30 AM CDT 08/26/2024 6:22 AM CDT Kathrine Stephens PILATES COORDINATOR LAB BLOOD ORDERABLES Final Result ANA [facility]6 [facility] Department of Laboratories [place], [place] [id number] * (ABNORMAL) Differential, auto (08/26/2024 5:30 AM CDT) Neutrophil abs 10.37(H) 1.50 - 6.50 K/cumm Comment:Testing performed by : [address] [address] Imm gran abs 0.13(H) 0.00 - 0.10 K/cumm ANA Comment:Testing performed by : [address] [address] Lymphocyte abs 2.97 0.80 - 3.30 K/cumm ANA Comment:Testing performed by : [address] [address] Monocyte abs 1.24(H) 0.20 - 0.80 K/cumm ANA Comment:Testing performed by : [address] [address] Eosinophil abs 0.39 0.00 - 0.50 K/cumm ANA Comment:Testing performed by : [address] [address] Basophil abs 0.07 0.00 - 0.10 K/cumm ANA Comment:Testing performed by : [address] [address] Neutrophil pct 68.2 % [facility] Comment: Interpretive Data Percent cell count reference ranges are not reported, since discordance with absolute values may lead to misinterpretation of CBC data. Current Interpretive Data was last revised on 2017. Testing performed by: [address] [address] Imm gran pct 0.9 % [facility] Comment: Interpretive Data Percent cell count reference ranges are not reported, since discordance with absolute values may lead to misinterpretation of CBC data. Current Interpretive Data was last revised on 2017. Testing performed by: [address] [address] Lymphocyte pct 19.6 % [facility] Comment: Interpretive Data Percent cell count reference ranges are not reported, since discordance with absolute values may lead to misinterpretation of CBC data. Current Interpretive Data was last revised on 2017. Testing performed by: [address] [address] Monocyte pct 8.2 % [facility] Comment: Interpretive Data Percent cell count reference ranges are not reported, since discordance with absolute values may lead to misinterpretation of CBC data. Current Interpretive Data was last revised on 2017. Testing performed by: [address] [address] Eosinophil pct 2.6 % [facility] Comment: Interpretive Data Percent cell count reference ranges are not reported, since discordance with absolute values may lead to misinterpretation of CBC data. Current Interpretive Data was last revised on 2017. Testing performed by: [address] [address] Basophil pct 0.5 % [facility] Comment: Interpretive Data Percent cell count reference ranges are not reported, since discordance with absolute values may lead to misinterpretation of CBC data. Current Interpretive Data was last revised on 2017. Testing performed by: [address] [address] Blood 08/26/2024 5:30 AM CDT 08/26/2024 6:22 AM CDT Kathrine Stephens PILATES COORDINATOR LAB BLOOD ORDERABLES Final Result ANA [address] [facility] Department [place] [address] * (ABNORMAL) CBC with auto differential (08/26/2024 5:30 AM CDT) WBC 15.17(H) 3.80 - 9.90 K/cumm Comment:Testing performed by : [address] [address] Hgb 10.9(L) 11.9 - 15.5 g/dL ANA Comment:Testing performed by : [address] [address] Hct 33.1(L) 35.6 - 45.5 % ANA Comment:Testing performed by : [address] [address] Plt 481(H) 150 - 400 K/cumm ANA Comment:Testing performed by : [address] [address] MPV 9.0(L) 9.1 - 12.3 fL ANA Comment:Testing performed by : [address] [address] RBC 3.56(L) 3.90 - 5.20 M/cumm ANA Comment:Testing performed by : [address] [address] MCV 93.0 81.3 - 96.4 fL ANA Comment:Testing performed by : [address], [address] MCH 30.6 27.1 - 33.3 pg ANA Comment:Testing performed by : [address], [address] MCHC 32.9 32.3 - 35.7 g/dL ANA Comment:Testing performed by : [address], [address] RDW CV 14.5 11.1 - 14.9 % ANA Comment:Testing performed by : [address], [address] RDW SD 49.5(H) 35.7 - 48.1 fL ANA SPARROW Comment:Testing performed by : [address] [address] NRBC abs 0.00 0.00 - 0.01 K/cumm ANA Comment:Testing performed by : [address], [address] Blood 08/26/2024 5:30 AM CDT 08/26/2024 6:22 AM CDT us Kathrine Stephens NP LAB BLOOD ORDERABLES Final Result Performing Organization Address [facility] Co de Phone Number [address] [place] [address] * Magnesium (08/26/2024 5:30 AM CDT) Magnesium 1.6 1.4 - 2.5 mg/dL Comment:Testing performed by : [address], [address] Blood 08/26/2024 5:30 AM CDT 08/26/2024 6:22 AM CDT us Lance Acosta MD LAB BLOOD ORDERABLES Jolanta l Result [address] [place] [address] * Basic metabolic panel (08/26/2024 5:30 AM CDT) Sodium 138 135 - 145 mmol/L Comment:Testing performed by : [address], [address] Potassium, pl 3.5 3.3 - 4.9 mmol/L ANA Comment:Testing performed by : [address] [address] Chloride 104 97 - 110 mmol/L ANA Comment:Testing performed by : [address] [address] CO2 22 22 - 32 mmol/L ANA SPARROW Comment:Testing performed by : [address] [address] Anion gap 12 2 - 15 mmol/L ANA Comment:Testing performed by : [address] [address] BUN 6 6 - 25 mg/dL ANA Comment:Testing performed by : [address] [address] Creatinine 0.76 0.60 - 1.10 mg/dL ANA Comment:Testing performed by : [address] [address] Glucose 82 70 - 199 mg/dL ANA [...] was last revised 2022. Testing performed by: [address] [address] Calcium 8.5 8.5 - 10.3 mg/dL ANA Comment:Testing performed by : [address] [address] Blood 08/26/2024 5:30 AM CDT 08/26/2024 6:22 AM CDT Kathrine Stephens NP LAB BLOOD ORDERABLES Final Result ANA SPARROW [address] [facility] [place] [address] * eGFR (08/25/2024 6:00 AM CDT) eGFR [...] was last reviewed 2021. Testing performed by: [address] [address] Blood 08/25/2024 6:00 AM CDT 08/25/2024 6:38 AM CDT us Kathrine Stephens NP LAB BLOOD ORDERABLES Final Result [facility] [address] [facility] Department [place] [address] * (ABNORMAL) Differential, auto (08/25/2024 6:00 AM CDT) Neutrophil abs 5.57 1.50 - 6.50 K/cumm Comment:Testing performed by : [address] [address] Imm gran abs 0.09 0.00 - 0.10 K/cumm ANA SPARROW Comment:Testing performed by : [address] [address] Lymphocyte abs 2.21 0.80 - 3.30 K/cumm ANA Comment:Testing performed by : [address], [place]., [address] Monocyte abs 0.82(H) 0.20 - 0.80 K/cumm [facility] Comment:Testing performed by : [address], [place]., [address] Eosinophil abs 0.60(H) 0.00 - 0.50 K/cumm [facility] Comment:Testing performed by : [address], [place]., [address] Basophil abs 0.07 0.00 - 0.10 K/cumm [facility] Comment:Testing performed by : [address] [address] Neutrophil pct 59.5 % [facility] Comment: Interpretive Data Percent cell count reference ranges are not reported, since discordance with absolute values may lead to misinterpretation of CBC data. Current Interpretive Data was last revised on 2017. Testing performed by: [address] [address] Imm gran pct 1.0 % [facility] Comment: Interpretive Data Percent cell count reference ranges are not reported, since discordance with absolute values may lead to misinterpretation of CBC data. Current Interpretive Data was last revised on 2017. Testing performed by: [address] [address] Lymphocyte pct 23.6 % [facility] Comment: Interpretive Data Percent cell count reference ranges are not reported, since discordance with absolute values may lead to misinterpretation of CBC data. Current Interpretive Data was last revised on 2017. Testing performed by: [address] [address] Monocyte pct 8.8 % [facility] Comment: Interpretive Data Percent cell count reference ranges are not reported, since discordance with absolute values may lead to misinterpretation of CBC data. Current Interpretive Data was last revised on 2017. Testing performed by: [address] [address] Eosinophil pct 6.4 % [facility] Comment: Interpretive Data Percent cell count reference ranges are not reported, since discordance with absolute values may lead to misinterpretation of CBC data. Current Interpretive Data was last revised on 2017. Testing performed by: [address] [address] Basophil pct 0.7 % ANA SPARROW Comment: Interpretive Data Percent cell count reference ranges are not reported, since discordance with absolute values may lead to misinterpretation of CBC data. Current Interpretive Data was last revised on 2017. Testing performed by: [address] [address] Blood 08/25/2024 6:00 AM CDT 08/25/2024 6:38 AM CDT Kathrine Stephens PILATES COORDINATOR LAB BLOOD ORDERABLES Final Result ANA [address] [facility] Department [place] [address] * (ABNORMAL) CBC with auto differential (08/25/2024 6:00 AM CDT) WBC 9.36 3.80 - 9.90 K/cumm Comment:Testing performed by : [address] [address] Hgb 12.0 11.9 - 15.5 g/dL ANA SPARROW Comment:Testing performed by : [address] [address] Hct 36.2 35.6 - 45.5 % ANA SPARROW Comment:Testing performed by : [address] [address] Plt 529(H) 150 - 400 K/cumm ANA SPARROW Comment:Testing performed by : [address] [address] MPV 8.8(L) 9.1 - 12.3 fL ANA SPARROW Comment:Testing performed by : [address] [address] RBC 3.92 3.90 - 5.20 M/cumm ANA SPARROW Comment:Testing performed by : [address] [place]., [address] MCV 92.3 81.3 - 96.4 fL ANA SPARROW Comment:Testing performed by : [address], [address] MCH 30.6 27.1 - 33.3 pg ANA SPARROW Comment:Testing performed by : [address] [address] MCHC 33.1 32.3 - 35.7 g/dL ANA SPARROW Comment:Testing performed by : [address], [address] RDW CV 14.2 11.1 - 14.9 % ANA Comment:Testing performed by : [address], [address] RDW SD 48.1 35.7 - 48.1 fL ANA SPARROW Comment:Testing performed by : [address], [address] NRBC abs 0.00 0.00 - 0.01 K/cumm ANA Comment:Testing performed by : [address], [address] Blood 08/25/2024 6:00 AM CDT 08/25/2024 6:38 AM CDT us Kathrine Stephens NP LAB BLOOD ORDERABLES Final Result Performing Organization Address City/[facility]/ZIP Co de Phone Number [place] [id number] [facility] Department [place] [address] * Magnesium (08/25/2024 6:00 AM CDT) Magnesium 1.5 1.4 - 2.5 mg/dL Comment:Testing performed by : [address] [address] Blood 08/25/2024 6:00 AM CDT 08/25/2024 6:38 AM CDT us Lance Acosta MD LAB BLOOD ORDERABLES Jolanta l Result AAN [address] [facility] Department [place] [address] * (ABNORMAL) Basic metabolic panel (08/25/2024 6:00 AM CDT) Sodium 138 135 - 145 mmol/L Comment:Testing performed by : [address] [address] Potassium, pl 2.9(L) 3.3 - 4.9 mmol/L ANA Comment:Testing performed by : [address] [address] Chloride 102 97 - 110 mmol/L ANA Comment:Testing performed by : [address] [address] CO2 22 22 - 32 mmol/L ANA Comment:Testing performed by : [address] [address] Anion gap 14 2 - 15 mmol/L ANA Comment:Testing performed by : [address] [address] BUN 4(L) 6 - 25 mg/dL ANA Comment:Testing performed by : [address] [address] Creatinine 0.75 0.60 - 1.10 mg/dL ANA Comment:Testing performed by : [address] [address] Glucose 76 70 - 199 mg/dL ANA [...] was last revised 2022. Testing performed by: [address] [address] Calcium 8.6 8.5 - 10.3 mg/dL ANA Comment:Testing performed by : [address] [address] Blood 08/25/2024 6:00 AM CDT 08/25/2024 6:38 AM CDT Kathrine Stephens NP LAB BLOOD ORDERABLES Final Result Performing Organization Address City/[facility]/ZIP Co de Phone Number ANA [address] [place] [address] * eGFR (08/24/2024 5:14 AM CDT) eGFR [...] was last reviewed 2021. Testing performed by: [facility], [address] [place] [address]., [address] Blood 08/24/2024 5:14 AM CDT 08/24/2024 5:44 AM CDT Kathrine Stephens NP LAB BLOOD ORDERABLES Final Result Performing Organization Address City/[facility]/ZIP Co de Phone Number ANA [address] [place] [address] * (ABNORMAL) Differential, auto (08/24/2024 5:14 AM CDT) Neutrophil abs 6.77(H) 1.50 - 6.50 K/cumm Comment:Testing performed by : [address] [address] Imm gran abs 0.23(H) 0.00 - 0.10 K/cumm ANA Comment:Testing performed by : [address] [address] Lymphocyte abs 3.56(H) 0.80 - 3.30 K/cumm [facility] Comment:Testing performed by : [address] [address] Monocyte abs 1.15(H) 0.20 - 0.80 K/cumm [facility] Comment:Testing performed by : [address] [address] Eosinophil abs 0.50 0.00 - 0.50 K/cumm [facility] Comment:Testing performed by : [address] [address] Basophil abs 0.11(H) 0.00 - 0.10 K/cumm [facility] Comment:Testing performed by : [address] [address] Neutrophil pct 54.9 % [facility] Comment: Interpretive Data Percent cell count reference ranges are not reported, since discordance with absolute values may lead to misinterpretation of CBC data. Current Interpretive Data was last revised on 2017. Testing performed by: [address] [address] Imm gran pct 1.9 % [facility] Comment: Interpretive Data Percent cell count reference ranges are not reported, since discordance with absolute values may lead to misinterpretation of CBC data. Current Interpretive Data was last revised on 2017. Testing performed by: [address] [address] Lymphocyte pct 28.9 % [facility] Comment: Interpretive Data Percent cell count reference ranges are not reported, since discordance with absolute values may lead to misinterpretation of CBC data. Current Interpretive Data was last revised on 2017. Testing performed by: [address] [address] Monocyte pct 9.3 % ANA Comment: Interpretive Data Percent cell count reference ranges are not reported, since discordance with absolute values may lead to misinterpretation of CBC data. Current Interpretive Data was last revised on 2017. Testing performed by: [address] [address] Eosinophil pct 4.1 % ANA Comment: Interpretive Data Percent cell count reference ranges are not reported, since discordance with absolute values may lead to misinterpretation of CBC data. Current Interpretive Data was last revised on 2017. Testing performed by: [address] [address] Basophil pct 0.9 % ANA Comment: Interpretive Data Percent cell count reference ranges are not reported, since discordance with absolute values may lead to misinterpretation of CBC data. Current Interpretive Data was last revised on 2017. Testing performed by: [address] [address] Blood 08/24/2024 5:14 AM CDT 08/24/2024 5:44 AM CDT Kathrine Stephens PILATES COORDINATOR LAB BLOOD ORDERABLES Final Result [facility] [address] [facility] Department of Laboratories [place], [place] [id number] * (ABNORMAL) CBC with auto differential (08/24/2024 5:14 AM CDT) WBC 12.32(H) 3.80 - 9.90 K/cumm Comment:Testing performed by : [address] [address] Hgb 11.8(L) 11.9 - 15.5 g/dL ANA SPARROW Comment:Testing performed by : [address] [address] Hct 36.6 35.6 - 45.5 % ANA Comment:Testing performed by : [address] [address] Plt 574(H) 150 - 400 K/cumm ANA SPARROW Comment:Testing performed by : [address] [address] MPV 8.7(L) 9.1 - 12.3 fL ANA SPARROW Comment:Testing performed by : [address] [address] RBC 3.89(L) 3.90 - 5.20 M/cumm AAN SPARROW Comment:Testing performed by : [address] [address] MCV 94.1 81.3 - 96.4 fL ANA SPARROW Comment:Testing performed by : [address] [address] MCH 30.3 27.1 - 33.3 pg ANA SPARROW Comment:Testing performed by : [address] [address] MCHC 32.2(L) 32.3 - 35.7 g/dL ANA SPARROW Comment:Testing performed by : [address] [address] RDW CV 14.6 11.1 - 14.9 % ANA SPARROW Comment:Testing performed by : [address] [address] RDW SD 50.3(H) 35.7 - 48.1 fL ANA SPARROW Comment:Testing performed by : [address] [address] NRBC abs 0.00 0.00 - 0.01 K/cumm ANA SPARROW Comment:Testing performed by : [address] [address] Blood 08/24/2024 5:14 AM CDT 08/24/2024 5:44 AM CDT us Kathrine Stephens NP LAB BLOOD ORDERABLES Final Result ANA [address] [facility] Department of Laboratories [place], [place] [id number] [phone] * Basic metabolic panel (08/24/2024 5:14 AM CDT) Sodium 140 135 - 145 mmol/L Comment:Testing performed by : [address] [address] Potassium, pl 3.4 3.3 - 4.9 mmol/L ANA Comment:Testing performed by : [address] [address] Chloride 104 97 - 110 mmol/L ANA Comment:Testing performed by : [address] [address] CO2 25 22 - 32 mmol/L ANA Comment:Testing performed by : [address] [address] Anion gap 11 2 - 15 mmol/L ANA Comment:Testing performed by : [address] [address] BUN 6 6 - 25 mg/dL ANA Comment:Testing performed by : [address] [address] Creatinine 0.86 0.60 - 1.10 mg/dL ANA Comment:Testing performed by : [address] [address] Glucose 84 70 - 199 mg/dL ANA [...] was last revised 2022. Testing performed by: [address] [address] Calcium 8.8 8.5 - 10.3 mg/dL ANA Comment:Testing performed by : [address] [address] Blood 08/24/2024 5:14 AM CDT 08/24/2024 5:44 AM CDT Kathrine Stephens NP LAB BLOOD ORDERABLES Final Result Performing Organization Address City/[facility] Co de Phone Number [address] [address] * POCT glucose (08/23/2024 4:42 PM CDT) Glucose, POC 131 70 - 199 mg/dL Comment:Testing performed by : [address] [address] Blood 08/23/2024 4:42 PM CDT 08/23/2024 4:42 PM CDT Obed Murillo MD LAB POCT ORDERABLES - DEVICE Final Result Performing Organization Address [facility] Co de Phone Number [address] [address] * POCT glucose (08/23/2024 1:16 PM CDT) [facility] Glucose, POC 107 70 - 199 mg/dL Comment:Testing performed by : [address] [address] Blood 08/23/2024 1:16 PM CDT 08/23/2024 1:16 PM CDT Obed Murillo MD LAB POCT ORDERABLES - DEVICE Final Result Performing Organization Address City/[facility] Co de Phone Number [address] [address] * eGFR (08/23/2024 8:15 AM CDT) Pathologist [facility] eGFR 85 >=60 mL/min/1. 73 m2 Comment: [...] was last reviewed 2021. Testing performed by: [address] [address] Blood 08/23/2024 8:15 AM CDT 08/23/2024 8:30 AM CDT us Kathrine Stephens PILATES COORDINATOR LAB BLOOD ORDERABLES Final Result ANA [address] [facility] Department [place] [address] * (ABNORMAL) Differential, auto (08/23/2024 8:15 AM CDT) Neutrophil abs 8.60(H) 1.50 - 6.50 K/cumm Comment:Testing performed by : [address] [address] Imm gran abs 0.17(H) 0.00 - 0.10 K/cumm ANA SPARROW Comment:Testing performed by : [address] [address] Lymphocyte abs 1.52 0.80 - 3.30 K/cumm ANA SPARROW Comment:Testing performed by : [address] [address] Monocyte abs 1.32(H) 0.20 - 0.80 K/cumm ANA SPARROW Comment:Testing performed by : [address] [address] Eosinophil abs 0.57(H) 0.00 - 0.50 K/cumm ANA Comment:Testing performed by : [address], [place]., [address] Basophil abs 0.08 0.00 - 0.10 K/cumm ANA Comment:Testing performed by : [address] [address] Neutrophil pct 70.1 % ANA Comment: Interpretive Data Percent cell count reference ranges are not reported, since discordance with absolute values may lead to misinterpretation of CBC data. Current Interpretive Data was last revised on 2017. Testing performed by: [address] [address] Imm gran pct 1.4 % ANA Comment: Interpretive Data Percent cell count reference ranges are not reported, since discordance with absolute values may lead to misinterpretation of CBC data. Current Interpretive Data was last revised on 2017. Testing performed by: [address] [address] Lymphocyte pct 12.4 % ANA Comment: Interpretive Data Percent cell count reference ranges are not reported, since discordance with absolute values may lead to misinterpretation of CBC data. Current Interpretive Data was last revised on 2017. Testing performed by: [address] [address] Monocyte pct 10.8 % ANA Comment: Interpretive Data Percent cell count reference ranges are not reported, since discordance with absolute values may lead to misinterpretation of CBC data. Current Interpretive Data was last revised on 2017. Testing performed by: [address] [address] Eosinophil pct 4.6 % ANA Comment: Interpretive Data Percent cell count reference ranges are not reported, since discordance with absolute values may lead to misinterpretation of CBC data. Current Interpretive Data was last revised on 2017. Testing performed by: [address] [address] Basophil pct 0.7 % ANA SPARROW Comment: Interpretive Data Percent cell count reference ranges are not reported, since discordance with absolute values may lead to misinterpretation of CBC data. Current Interpretive Data was last revised on 2017. Testing performed by: [address] [address] Blood 08/23/2024 8:15 AM CDT 08/23/2024 8:30 AM CDT Kathrine Stephens PILATES COORDINATOR LAB BLOOD ORDERABLES Final Result ANA [address] [facility] Department of Laboratories [place], [place] [id number] * (ABNORMAL) CBC with auto differential (08/23/2024 8:15 AM CDT) WBC 12.26(H) 3.80 - 9.90 K/cumm Comment:Testing performed by : [address] [address] Hgb 12.5 11.9 - 15.5 g/dL ANA Comment:Testing performed by : [address] [address] Hct 37.9 35.6 - 45.5 % ANA Comment:Testing performed by : [address] [address] Plt 561(H) 150 - 400 K/cumm ANA Comment:Testing performed by : [address] [address] MPV 8.5(L) 9.1 - 12.3 fL ANA SPARROW Comment:Testing performed by : [address] [address] RBC 4.08 3.90 - 5.20 M/cumm ANA SPARROW Comment:Testing performed by : [address] [address] MCV 92.9 81.3 - 96.4 fL ANA Comment:Testing performed by : [address] [address] MCH 30.6 27.1 - 33.3 pg ANA SPARROW Comment:Testing performed by : [address] [address] MCHC 33.0 32.3 - 35.7 g/dL ANA SPARROW Comment:Testing performed by : [address] [address] RDW CV 14.7 11.1 - 14.9 % ANA SPARROW Comment:Testing performed by : [address] [address] RDW SD 50.3(H) 35.7 - 48.1 fL ANA SPARROW Comment:Testing performed by : [address] [address] NRBC abs 0.00 0.00 - 0.01 K/cumm ANA SPARROW Comment:Testing performed by : [address] [address] Blood 08/23/2024 8:15 AM CDT 08/23/2024 8:30 AM CDT us Kathrine Stephens PILATES COORDINATOR LAB BLOOD ORDERABLES Final Result ANA SPARROW [facility] Department [place] [address] * (ABNORMAL) Basic metabolic panel (08/23/2024 8:15 AM CDT) Sodium 138 135 - 145 mmol/L Comment:Testing performed by : [address] [address] Potassium, pl 3.3 3.3 - 4.9 mmol/L ANA SPARROW Comment:Testing performed by : [address] [address] Chloride 102 97 - 110 mmol/L ANA SPARROW Comment:Testing performed by : [address] [address] CO2 25 22 - 32 mmol/L ANA SPARROW Comment:Testing performed by : [address] [address] Anion gap 11 2 - 15 mmol/L ANA SPARROW Comment:Testing performed by : [address] [address] BUN 3(L) 6 - 25 mg/dL ANA Comment:Testing performed by : [address] [address] Creatinine 0.64 0.60 - 1.10 mg/dL ANA Comment:Testing performed by : [address] [address] Glucose 95 70 - 199 mg/dL ANA [...] was last revised 2022. Testing performed by: [address] [address] Calcium 8.7 8.5 - 10.3 mg/dL ANA Comment:Testing performed by : [address] [address] Blood 08/23/2024 8:15 AM CDT 08/23/2024 8:30 AM CDT Kathrine Stephens PILATES COORDINATOR LAB BLOOD ORDERABLES Final Result ANA [address] [facility] Department [place] [address] * POCT glucose (08/22/2024 8:39 PM CDT) [facility] Glucose, POC 145 70 - 199 mg/dL Comment:Testing performed by : [address] [address] Glucose comment 1 RN/MD Notified ANA Comment:Testing performed by : [address] [place]., [address] Blood 08/22/2024 8:39 PM CDT 08/22/2024 8:39 PM CDT Obed Murillo MD LAB POCT ORDERABLES - DEVICE Final Result Performing Organization Address [facility] Co de Phone Number ANA [address] [place] [address] * POCT glucose (08/22/2024 8:19 AM CDT) [facility] Glucose, POC 100 70 - 199 mg/dL Comment:Testing performed by : [address] [address] Glucose comment 1 Will Repeat Test ANA Comment:Testing performed by : [address], [address] Glucose comment 2 RN/MD Notified ANA Comment:Testing performed by : [facility], [address] [place] [address]., [address] Blood 08/22/2024 8:19 AM CDT 08/22/2024 8:19 AM CDT Jhony Ruiz MD LAB POCT ORDERABLES - DEVICE Final Result Performing Organization Address City/[facility] Co de Phone Number ANA [address] [address] * eGFR (08/22/2024 4:40 AM CDT) Pathologist [facility] eGFR 85 >=60 mL/min/1. 73 m2 Comment: [...] was last reviewed 2021. Testing performed by: [address] [address] Blood 08/22/2024 4:40 AM CDT 08/22/2024 5:21 AM CDT us Mathew Renner MD LAB BLOOD ORDERABLES Final R esult ANA [facility] Department [place] [address] * (ABNORMAL) Differential, auto (08/22/2024 4:40 AM CDT) Neutrophil abs 6.26 1.50 - 6.50 K/cumm Comment:Testing performed by : [address] [address] Imm gran abs 0.22(H) 0.00 - 0.10 K/cumm ANA Comment:Testing performed by : [address] [address] Lymphocyte abs 1.94 0.80 - 3.30 K/cumm ANA Comment:Testing performed by : [address] [address] Monocyte abs 1.44(H) 0.20 - 0.80 K/cumm ANA Comment:Testing performed by : [address] [address] Eosinophil abs 0.55(H) 0.00 - 0.50 K/cumm ANA Comment:Testing performed by : [address] [address] Basophil abs 0.08 0.00 - 0.10 K/cumm ANA Comment:Testing performed by : [address] [address] Neutrophil pct 59.7 % [facility] Comment: Interpretive Data Percent cell count reference ranges are not reported, since discordance with absolute values may lead to misinterpretation of CBC data. Current Interpretive Data was last revised on 2017. Testing performed by: [address] [address] Imm gran pct 2.1 % [facility] Comment: Interpretive Data Percent cell count reference ranges are not reported, since discordance with absolute values may lead to misinterpretation of CBC data. Current Interpretive Data was last revised on 2017. Testing performed by: [address] [address] Lymphocyte pct 18.5 % [facility] Comment: Interpretive Data Percent cell count reference ranges are not reported, since discordance with absolute values may lead to misinterpretation of CBC data. Current Interpretive Data was last revised on 2017. Testing performed by: [address] [address] Monocyte pct 13.7 % [facility] Comment: Interpretive Data Percent cell count reference ranges are not reported, since discordance with absolute values may lead to misinterpretation of CBC data. Current Interpretive Data was last revised on 2017. Testing performed by: [address] [address] Eosinophil pct 5.2 % [facility] Comment: Interpretive Data Percent cell count reference ranges are not reported, since discordance with absolute values may lead to misinterpretation of CBC data. Current Interpretive Data was last revised on 2017. Testing performed by: [address] [address] Basophil pct 0.8 % [facility] Comment: Interpretive Data Percent cell count reference ranges are not reported, since discordance with absolute values may lead to misinterpretation of CBC data. Current Interpretive Data was last revised on 2017. Testing performed by: [address] [address] Blood 08/22/2024 4:40 AM CDT 08/22/2024 5:21 AM CDT us Kathrine Stephens PILATES COORDINATOR LAB BLOOD ORDERABLES Final Result ANA [address] [facility] Department [place] [address] * (ABNORMAL) CBC with auto differential (08/22/2024 4:40 AM CDT) WBC 10.49(H) 3.80 - 9.90 K/cumm Comment:Testing performed by : [address] [address] Hgb 10.6(L) 11.9 - 15.5 g/dL ANA Comment:Testing performed by : [address] [address] Hct 32.7(L) 35.6 - 45.5 % ANA Comment:Testing performed by : [address] [address] Plt 539(H) 150 - 400 K/cumm ANA Comment:Testing performed by : [address] [address] MPV 8.7(L) 9.1 - 12.3 fL ANA Comment:Testing performed by : [address] [address] RBC 3.52(L) 3.90 - 5.20 M/cumm ANA Comment:Testing performed by : [address] [address] MCV 92.9 81.3 - 96.4 fL ANA Comment:Testing performed by : [address] [address] MCH 30.1 27.1 - 33.3 pg ANA SPARROW Comment:Testing performed by : [address] [address] MCHC 32.4 32.3 - 35.7 g/dL ANA Comment:Testing performed by : [address] [address] RDW CV 14.7 11.1 - 14.9 % ANA Comment:Testing performed by : [address] [address] RDW SD 50.4(H) 35.7 - 48.1 fL ANA SPARROW Comment:Testing performed by : [address] [address] NRBC abs 0.00 0.00 - 0.01 K/cumm ANA Comment:Testing performed by : [address] [address] Blood 08/22/2024 4:40 AM CDT 08/22/2024 5:21 AM CDT Kathrine Stephens PILATES COORDINATOR LAB BLOOD ORDERABLES Final Result Performing Organization Address [facility] Co de Phone Number [address] [place] [address] * Phosphorus (08/22/2024 4:40 AM CDT) Pathologist [facility] Phosphorus, pl 2.6 2.3 - 4.5 mg/dL Comment:Testing performed by : [address], [address] Blood 08/22/2024 4:40 AM CDT 08/22/2024 5:21 AM CDT Kathrine Stephens PILATES COORDINATOR LAB BLOOD ORDERABLES Final Result Performing Organization Address [facility] de Phone Number [address] [address] * (ABNORMAL) Comprehensive metabolic panel (08/22/2024 4:40 AM CDT) Pathologist [facility] Sodium 136 135 - 145 mmol/L Comment:Testing performed by : [address] [address] Potassium, pl 2.9(L) 3.3 - 4.9 mmol/L ANA Comment:Testing performed by : [address], [address] Chloride 103 97 - 110 mmol/L [facility] Comment:Testing performed by : [address] [address] CO2 23 22 - 32 mmol/L ANA Comment:Testing performed by : [address] [address] Anion gap 10 2 - 15 mmol/L [facility] Comment:Testing performed by : [address] [address] BUN 5(L) 6 - 25 mg/dL [facility] Comment:Testing performed by : [address], [place]., [address] Creatinine 0.66 0.60 - 1.10 mg/dL [facility] Comment:Testing performed by : [address] [address] Glucose 102 70 - 199 mg/dL [facility] Comment: Interpretive Data Fasting glucose [...] was last revised 2022. Testing performed by: [address] [address] Calcium 8.3(L) 8.5 - 10.3 mg/dL [facility] Comment:Testing performed by : [address] [address] Bilirubin, total 0.6 0.1 - 1.2 mg/dL [facility] Comment:Testing performed by : [address] [address] Protein, pl 6.3(L) 6.5 - 8.5 g/dL [facility] Comment:Testing performed by : [address] [address] Albumin 3.1(L) 3.5 - 5.0 g/dL ANA SPARROW Comment:Testing performed by : [address] [address] Alk phos 105 40 - 130 Units/L ANA Comment:Testing performed by : [address] [address] ALT 11 7 - 45 Units/L ANA Comment:Testing performed by : [address] [address] AST 23 10 - 45 Units/L ANA Comment:Testing performed by : [address] [address] Blood 08/22/2024 4:40 AM CDT 08/22/2024 5:21 AM CDT us Mathew Renner MD LAB BLOOD ORDERABLES Final R esult Performing Organization Address City/[facility] Co de Phone Number [address] [place] [address] * POCT glucose (08/22/2024 4:00 AM CDT) Glucose, POC 102 70 - 199 mg/dL Comment:Testing performed by : [address] [address] Blood 08/22/2024 4:00 AM CDT 08/22/2024 4:00 AM CDT us Jhony Ruiz MD LAB POCT ORDERABLES - DEVICE Final Result Performing Organization Address City/[facility]/ZIP Co de Phone Number [address] [place] [address] * POCT glucose (08/22/2024 2:42 AM CDT) Glucose, POC 146 70 - 199 mg/dL Comment:Testing performed by : [address] [address] Blood 08/22/2024 2:42 AM CDT 08/22/2024 2:42 AM CDT Jhony Ruiz MD LAB POCT ORDERABLES - DEVICE Final Result Performing Organization Address [facility] Co de Phone Number ANA [address] [address] * POCT glucose (08/22/2024 1:23 AM CDT) Glucose, POC 192 70 - 199 mg/dL Comment:Testing performed by : [address] [address] Blood 08/22/2024 1:23 AM CDT 08/22/2024 1:23 AM CDT Jhony Ruiz MD LAB POCT ORDERABLES - DEVICE Final Result Performing Organization Address [facility] Co de Phone Number ANA [address] [address] * (ABNORMAL) POCT glucose (08/22/2024 12:58 AM CDT) Glucose, POC 64(L) 70 - 199 mg/dL Comment:Testing performed by : [address] [address] Blood 08/22/2024 12:5 8 AM CDT 08/22/2024 12:58 AM CDT Jhony Ruiz MD LAB POCT ORDERABLES - DEVICE Final Result Performing Organization Address City/[facility] Co de Phone Number [address] [address] * POCT glucose (08/21/2024 8:07 PM CDT) Glucose, POC 77 70 - 199 mg/dL Comment:Testing performed by : [address] [address] Blood 08/21/2024 8:07 PM CDT 08/21/2024 8:07 PM CDT Jhony Ruiz MD LAB POCT ORDERABLES - DEVICE Final Result Performing Organization Address [facility] Co de Phone Number ANA [address] [address] * POCT glucose (08/21/2024 4:48 PM CDT) Glucose, POC 77 70 - 199 mg/dL Comment:Testing performed by : [address] [address] Glucose comment 1 RN/MD Notified ANA Comment:Testing performed by : [address] [address] Blood 08/21/2024 4:48 PM CDT 08/21/2024 4:48 PM CDT Jhony Ruiz MD LAB POCT ORDERABLES - DEVICE Final Result Performing Organization Address [facility] Co de Phone Number ANA [address] [address] * POCT glucose (08/21/2024 11:47 AM CDT) Glucose, POC 82 70 - 199 mg/dL Comment:Testing performed by : [address] [address] Glucose comment 1 Will Repeat Test ANA SPARROW Comment:Testing performed by : [address] [address] Glucose comment 2 RN/MD Notified NAA Comment:Testing performed by : [address] [address] Blood 08/21/2024 11:4 7 AM CDT 08/21/2024 11:47 AM CDT Jhony Ruiz MD LAB POCT ORDERABLES - DEVICE Final Result Performing Organization Address [facility] Co de Phone Number ANA [address] [place] [address] * eGFR (08/21/2024 8:27 AM CDT) eGFR 84 >=60 mL/min/1. 73 [...] was last reviewed 2021. Testing performed by: [address] [address] Blood 08/21/2024 8:27 AM CDT 08/21/2024 8:33 AM CDT Mathew Renner MD LAB BLOOD ORDERABLES Final R esult Performing Organization Address City/[facility]/ZIP Co de Phone Number ANA [facility] [place] [address] * (ABNORMAL) CBC without differential (08/21/2024 8:27 AM CDT) WBC 11.68(H) 3.80 - 9.90 K/cumm Comment:Testing performed by : [address] [address] Hgb 10.9(L) 11.9 - 15.5 g/dL ANA Comment:Testing performed by : [address], [address] Hct 32.6(L) 35.6 - 45.5 % ANA Comment:Testing performed by : [address] [address] Plt 498(H) 150 - 400 K/cumm ANA Comment:Testing performed by : [address], [address] MPV 8.4(L) 9.1 - 12.3 fL ANA Comment:Testing performed by : [address], [address] RBC 3.50(L) 3.90 - 5.20 M/cumm ANA Comment:Testing performed by : [address], [address] MCV 93.1 81.3 - 96.4 fL ANA Comment:Testing performed by : [address], [address] MCH 31.1 27.1 - 33.3 pg ANA Comment:Testing performed by : [address], [address] MCHC 33.4 32.3 - 35.7 g/dL ANA Comment:Testing performed by : [address], [address] RDW CV 14.9 11.1 - 14.9 % ANA Comment:Testing performed by : [address], [address] RDW SD 50.4(H) 35.7 - 48.1 fL ANA Comment:Testing performed by : [address], [address] NRBC abs 0.00 0.00 - 0.01 K/cumm ANA Comment:Testing performed by : [address], [address] Blood 08/21/2024 8:27 AM CDT 08/21/2024 8:33 AM CDT us Mathew Renner MD LAB BLOOD ORDERABLES Final R esult ANA [address] [facility] [place] [address] * (ABNORMAL) Basic metabolic panel (08/21/2024 8:27 AM CDT) Sodium 137 135 - 145 mmol/L Comment:Testing performed by : [address] [address] Potassium, pl 3.6 3.3 - 4.9 mmol/L ANA Comment:Testing performed by : [address] [address] Chloride 103 97 - 110 mmol/L ANA Comment:Testing performed by : [address] [address] CO2 23 22 - 32 mmol/L ANA Comment:Testing performed by : [address] [address] Anion gap 11 2 - 15 mmol/L ANA Comment:Testing performed by : [address] [address] BUN 6 6 - 25 mg/dL ANA Comment:Testing performed by : [address] [address] Creatinine 0.69 0.60 - 1.10 mg/dL ANA Comment:Testing performed by : [address] [address] Glucose 85 70 - 199 mg/dL ANA Comment: Interpretive [...] was last revised 2022. Testing performed by: [facility], [address] [place] [address]., [address] Calcium 8.2(L) 8.5 - 10.3 mg/dL ANA SPARROW Comment:Testing performed by : [address] [address] Blood 08/21/2024 8:27 AM CDT 08/21/2024 8:33 AM CDT Mathew Renner MD LAB BLOOD ORDERABLES Final R esult Performing Organization Address [facility] Co de Phone Number [address] [place] [address] * POCT glucose (08/21/2024 7:40 AM CDT) [facility] Glucose, POC 77 70 - 199 mg/dL Comment:Testing performed by : [address] [address] Glucose comment 1 Will Repeat Test ANA SPARROW Comment:Testing performed by : [address] [address] Glucose comment 2 RN/MD Notified ANA Comment:Testing performed by : [address] [address] Blood 08/21/2024 7:40 AM CDT 08/21/2024 7:40 AM CDT us Jhony Ruiz MD LAB POCT ORDERABLES - DEVICE Final Result Performing Organization Address City/[facility]/ZIP Co de Phone Number [address] [place] [address] * eGFR (08/21/2024 5:57 AM CDT) [facility] eGFR 85 >=60 mL/min/1. 73 m2 [...] was last reviewed 2021. Testing performed by: [address] [address] Blood 08/21/2024 5:57 AM CDT 08/21/2024 6:50 AM CDT Kathrine Stephens NP LAB BLOOD ORDERABLES Final Result ANA [address] [facility] [place] [address] * (ABNORMAL) Differential, auto (08/21/2024 5:57 AM CDT) Neutrophil abs 7.71(H) 1.50 - 6.50 K/cumm Comment:Testing performed by : [address] [address] Imm gran abs 0.21(H) 0.00 - 0.10 K/cumm ANA Comment:Testing performed by : [address] [address] Lymphocyte abs 1.83 0.80 - 3.30 K/cumm ANA Comment:Testing performed by : [address] [address] Monocyte abs 1.66(H) 0.20 - 0.80 K/cumm ANA Comment:Testing performed by : [address] [address] Eosinophil abs 0.33 0.00 - 0.50 K/cumm ANA Comment:Testing performed by : [address] [address] Basophil abs 0.09 0.00 - 0.10 K/cumm ANA Comment:Testing performed by : [address] [address] Neutrophil pct 65.1 % [facility] Comment: Interpretive Data Percent cell count reference ranges are not reported, since discordance with absolute values may lead to misinterpretation of CBC data. Current Interpretive Data was last revised on 2017. Testing performed by: [address] [address] Imm gran pct 1.8 % [facility] Comment: Interpretive Data Percent cell count reference ranges are not reported, since discordance with absolute values may lead to misinterpretation of CBC data. Current Interpretive Data was last revised on 2017. Testing performed by: [address] [address] Lymphocyte pct 15.5 % [facility] Comment: Interpretive Data Percent cell count reference ranges are not reported, since discordance with absolute values may lead to misinterpretation of CBC data. Current Interpretive Data was last revised on 2017. Testing performed by: [address] [address] Monocyte pct 14.0 % [facility] Comment: Interpretive Data Percent cell count reference ranges are not reported, since discordance with absolute values may lead to misinterpretation of CBC data. Current Interpretive Data was last revised on 2017. Testing performed by: [address] [address] Eosinophil pct 2.8 % [facility] Comment: Interpretive Data Percent cell count reference ranges are not reported, since discordance with absolute values may lead to misinterpretation of CBC data. Current Interpretive Data was last revised on 2017. Testing performed by: [address] [address] Basophil pct 0.8 % [facility] Comment: Interpretive Data Percent cell count reference ranges are not reported, since discordance with absolute values may lead to misinterpretation of CBC data. Current Interpretive Data was last revised on 2017. Testing performed by: [address] [address] Blood 08/21/2024 5:57 AM CDT 08/21/2024 6:50 AM CDT us Kathrine Stephens PILATES COORDINATOR LAB BLOOD ORDERABLES Final Result [facility] [address] [facility] Department [place] [address] * (ABNORMAL) CBC with auto differential (08/21/2024 5:57 AM CDT) WBC 11.83(H) 3.80 - 9.90 K/cumm Comment:Testing performed by : [address] [address] Hgb 11.5(L) 11.9 - 15.5 g/dL ANA Comment:Testing performed by : [address] [address] Hct 35.0(L) 35.6 - 45.5 % ANA Comment:Testing performed by : [address] [address] Plt 514(H) 150 - 400 K/cumm ANA Comment:Testing performed by : [address] [address] MPV 9.0(L) 9.1 - 12.3 fL ANA Comment:Testing performed by : [address] [address] RBC 3.74(L) 3.90 - 5.20 M/cumm ANA Comment:Testing performed by : [address] [address] MCV 93.6 81.3 - 96.4 fL ANA Comment:Testing performed by : [address] [address] MCH 30.7 27.1 - 33.3 pg ANA SPARROW Comment:Testing performed by : [address] [address] MCHC 32.9 32.3 - 35.7 g/dL ANA Comment:Testing performed by : [address], [address] RDW CV 15.1(H) 11.1 - 14.9 % ANA SPARROW Comment:Testing performed by : [address], [address] RDW SD 51.3(H) 35.7 - 48.1 fL ANA SPARROW Comment:Testing performed by : [address], [address] NRBC abs 0.00 0.00 - 0.01 K/cumm ANA Comment:Testing performed by : [address], [address] Blood 08/21/2024 5:57 AM CDT 08/21/2024 6:50 AM CDT Kathrine Stephens PILATES COORDINATOR LAB BLOOD ORDERABLES Final Result Performing Organization Address City/[facility]/ZIP Co de Phone Number [address] [place] [employer] [address] * Phosphorus (08/21/2024 5:57 AM CDT) Pathologist [facility] Phosphorus, pl 3.1 2.3 - 4.5 mg/dL Comment:Testing performed by : [address], [address] Blood 08/21/2024 5:57 AM CDT 08/21/2024 6:50 AM CDT Kathrine Stephens PILATES COORDINATOR LAB BLOOD ORDERABLES Final Result [address] [address] * Magnesium (08/21/2024 5:57 AM CDT) [facility] Magnesium 1.8 1.4 - 2.5 mg/dL Comment:Testing performed by : [address] [address] Blood 08/21/2024 5:57 AM CDT 08/21/2024 6:50 AM CDT Kathrine Stephens NP LAB BLOOD ORDERABLES Final Result [facility] [address] [facility] Department [place] [address] * (ABNORMAL) Basic metabolic panel (08/21/2024 5:57 AM CDT) Sodium 136 135 - 145 mmol/L Comment:Testing performed by : [address] [address] Potassium, pl 3.7 3.3 - 4.9 mmol/L ANA Comment: Hemolyzed; Potassium value may be falsely elevated by as much as 1.0 mmol/L. Suggest redraw and reanalysis. Testing performed by: [address] [address] Chloride 103 97 - 110 mmol/L ANA Comment:Testing performed by : [address] [address] CO2 21(L) 22 - 32 mmol/L ANA Comment:Testing performed by : [address] [address] Anion gap 12 2 - 15 mmol/L ANA Comment:Testing performed by : [address] [address] BUN 7 6 - 25 mg/dL ANA Comment:Testing performed by : [address] [address] Creatinine 0.65 0.60 - 1.10 mg/dL ANA Comment:Testing performed by : [address] [address] Glucose 78 70 - 199 mg/dL ANA [...] was last revised 2022. Testing performed by: [facility], [address] [place] [address]., [address] Calcium 8.4(L) 8.5 - 10.3 mg/dL ANA Comment:Testing performed by : [address] [address] Blood 08/21/2024 5:57 AM CDT 08/21/2024 6:50 AM CDT us Kathrine Stephens NP LAB BLOOD ORDERABLES Final Result Performing Organization Address [facility] Co de Phone Number [address] [place] [address] * POCT glucose (08/21/2024 4:54 AM CDT) Glucose, POC 77 70 - 199 mg/dL Comment:Testing performed by : [address] [address] Glucose comment 1 RN/MD Notified ANA Comment:Testing performed by : [address] [address] Blood 08/21/2024 4:54 AM CDT 08/21/2024 4:54 AM CDT us Gonzalo Sutton MD LAB POCT ORDERABLES - D JOEYICE Final Result Performing Organization Address City/[facility] Co de Phone Number [address] [place] [address] * POCT glucose (08/21/2024 12:52 AM CDT) Glucose, POC 82 70 - 199 mg/dL Comment:Testing performed by : [address], [address] Glucose comment 1 RN/MD Notified ANA Comment:Testing performed by : [address] [address] Blood 08/21/2024 12:5 2 AM CDT 08/21/2024 12:52 AM CDT Gonzalo Sutton MD LAB POCT ORDERABLES - D EVICE Final Result Performing Organization Address [facility] de Phone Number ANA [address] [place] [employer] [address] * POCT glucose (08/20/2024 8:52 PM CDT) Glucose, POC 81 70 - 199 mg/dL Comment:Testing performed by : [address] [address] Glucose comment 1 RN/MD Notified ANA Comment:Testing performed by : [address] [address] Blood 08/20/2024 8:52 PM CDT 08/20/2024 8:52 PM CDT Result [facility] Gonzalo Sutton MD LAB POCT ORDERABLES - D EVICE Final Result Performing Organization Address [facility] de Phone Number [address] [address] * POCT glucose (08/20/2024 5:23 PM CDT) Glucose, POC 90 70 - 199 mg/dL Comment:Testing performed by : [address] [address] Blood 08/20/2024 5:23 PM CDT 08/20/2024 5:23 PM CDT Gonzalo Sutton MD LAB POCT ORDERABLES - D EVICE Final Result Performing Organization Address City/[facility] Co de Phone Number [address] [address] * C. difficile testing Stool (08/20/2024 4:59 PM CDT) [facility] C. diff result Negative, DNA Negative , DNA Comment:Testing performed by : [address] [address] C. diff interp Negative for toxigenic Clostridioides (Clostridium) difficile. Analysis performed by detection of gene(s) encoding C. difficile toxin(s). The nucleic acid detection assay used is cleared by the [place] Food and Drug administration and its performance characteristics have been verified by the performing laboratory. [facility] Comment: NAP (O27) - presumptive negative Testing performed by: [address] [address] Stool 08/20/2024 4:59 PM CDT 08/20/2024 5:04 PM CDT Kathrine Stephens NP LAB MICROBIOLOGY - G ENERAL ORDERABLES Final Result Performing Organization Address [facility] Co de Phone Number [address] [address] * POCT glucose (08/20/2024 12:15 PM CDT) [facility] Glucose, POC 75 70 - 199 mg/dL Comment:Testing performed by : [address] [address] Blood 08/20/2024 12:1 5 PM CDT 08/20/2024 12:15 PM CDT Gonzalo Sutton MD LAB POCT ORDERABLES - D EVICE Final Result Performing Organization Address City/[facility] Co de Phone Number [address] [address] * (ABNORMAL) Urinalysis reflex to microscopic and culture Urine (08/20/2024 8:23 AM CDT) Color, ur Yellow Yellow Comment:Testing performed by : [facility], [address] [place] [address]., [address] Clarity, ur Cloudy(A) Clear ANA Comment:Testing performed by : [address], [place]., [address] Specific gravity, ur 1.035(H) 1.003 - 1.030 ANA Comment:Testing performed by : [address], [place]., [address] pH, urine 7.0 ANA Comment: Interpretive Data U rine pH is affected by diet, medications, systemic acid-base disturbances, and renal tubular function. pH may affect urinary stone formation. For example, urine pH below 6.0 may help reduce the tendency for calcium phosphate stones and pH greater than 6.0 may reduce the tendency for uric acid stone formation. Source: [facility] [employer] Current Interpretive Data was last revised on 2017 Testing performed by: [address] [address] Protein, ur ql Trace(A) Negative ANA Comment:Testing performed by : [address] [address] Glucose, ur ql Negative Negative ANA Comment:Testing performed by : [address] [address] Ketones, ur Negative Negative ANA Comment:Testing performed by : [address] [address] Bilirubin, ur Negative Negative ANA Comment:Testing performed by : [address] [address] Blood, ur 2+(A) Negative ANA Comment:Testing performed by : [address] [address] Urobilinogen, ur <2.0 <2.0 mg/dL ANA Comment:Testing performed by : [address] [address] Nitrite, ur Positive(A) Negative ANA Comment:Testing performed by : [address] [address] Leukocyte esterase, ur 4+(A) Negative ANA Comment:Testing performed by : [address] [address] UA reflex comment Reflex to microscopic UA will be performed. ANA Comment:Testing performed by : [address] [address] Urine 08/20/2024 8:23 AM CDT 08/20/2024 8:26 AM CDT us Jesenia Capone MD LAB MICROBIOLOGY - GENER AL ORDERABLES Final Result Performing Organization Address [facility] Co de Phone Number [facility] [address] [facility] Department [place] [address] * (ABNORMAL) Urinalysis, microscopic only (08/20/2024 8:23 AM CDT) WBC, ur >50(A) 0 - 5 /HPF Comment:Testing performed by : [address] [address] RBC, ur 21-50(A) 0 - 2 /HPF ANA Comment:Testing performed by : [address] [address] Epithelial cells, squamous, ur 1-5 0 - 5 /HPF ANA Comment:Testing performed by : [address] [address] Bacteria, ur 2+(A) ANA Comment:Testing performed by : [address] [address] Mucous, ur Present(A) ANA Comment:Testing performed by : [address] [address] Culture Reflex Comment Reflex to urine culture will be performed. ANA Comment:Testing performed by : [address] [address] Urine 08/20/2024 8:23 AM CDT 08/20/2024 8:26 AM CDT Jesenia Capone MD LAB URINE ORDERABLES Fin al Result Performing Organization Address City/State/[facility] Co de Phone Number [address] [address] * Urine culture Urine (08/20/2024 8:23 AM CDT) Report Final Report: Less than 100,000 colonies/mL (clinically insignificant growth based on current clinical standards) Comment:Testing performed by : [facility], [address] [place]., [address] Organism (CLINICALLY INSIGNIFICANT GROWTH [facility] Urine 08/20/2024 8:23 AM CDT 08/20/2024 12:07 PM CDT Narrative ANA - 08/21/2024 8:35 PM CDT Urine culture reflexed based upon urinalysis results. Testing performed by [facility] Microbiology Laboratory ([phone]) Jesenia Capone MD LAB MICROBIOLOGY - GENER AL ORDERABLES Final Result Performing Organization Address [facility] de Phone Number [address] [address] * Sepsis Lactate w/ Reflex (08/20/2024 8:14 AM CDT) Sepsis Lactate 1.7 0.7 - 2.0 mmol/L Comment:Testing performed by : [facility], [address] [place] [address]., [address] Blood 08/20/2024 8:14 AM CDT 08/20/2024 8:17 AM CDT Jesenia Capone MD LAB BLOOD ORDERABLES Fin al Result Performing Organization Address [facility] Co de Phone Number [address] [address] * CT Abdomen Pelvis W Contrast (08/20/2024 [...] had 3 loose stool beginning an hour [employer]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 Patient reporting Abdominal pain 8/10. TECHNIQUE: CT [...] No Mosley D.O. PS: PS Report ID: [id number] Reading Location: [id number] Procedure Note No Mosley, DO - 08/20/2024 EXAM DESCRIPTION: CT ABDOMEN PELVIS W CONTRAST REASON FOR STUDY: Bowel obstruction suspected, Abdominal pain, acute, nonlocalized Patient came in via EMS with Nausea, vomiting, and diarrhea. 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 Patient reporting Abdominalpain 11/08. TECHNIQUE: CT scan [...] No Mosley D.O. PS: PS Report ID: [id number] Reading Location: [id number] Jesenia Capone MD IM CT PROCEDURES Final Result * Blood culture Blood Peripheral (08/20/2024 5:53 AM CDT) Report Final Report: No growth Comment:Testing performed by : [facility], [address] [facility]., [address] Blood (Peripheral) 08/20/2024 5:53 AM CDT 08/20/2024 [...] performance characteristics have been verified by the [facility]biology Laboratory. For questions about this culture, contact the Microbiology Laboratory at [phone]. Interpretive data was last revised on 24. Jesenia Capone MD LAB MICROBIOLOGY - [facility] AL ORDERABLES Final Result ANA [address] [facility] Department [place] [address] * Blood culture Blood Peripheral (08/20/2024 5:53 AM CDT) Report Final Report: No growth Comment:Testing performed by : [facility], [address] [facility], [place]., [address] Blood (Peripheral) 08/20/2024 5:53 AM CDT 08/20/2024 9:50 AM CDT Dale PEREZ - 08/24/2024 12:00 PM CDT Draw Blood [...] performance characteristics have been verified by the [facility]biology [facility]. For questions about this culture, contact the Microbiology Laboratory at [phone]. Interpretive data was last revised on 24. Jesenia Capone MD LAB MICROBIOLOGY - GENER AL ORDERABLES Final Result ANA [address] [facility] [address] * (ABNORMAL) Sepsis Lactate w/ Reflex (08/20/2024 5:25 AM CDT) Sepsis Lactate 3.8(H) 0.7 - 2.0 mmol/L Comment:Testing performed by : [facility], [address] [place] [address]., [address] Blood 08/20/2024 5:25 AM CDT 08/20/2024 5:31 AM CDT Jesenia Capone MD LAB BLOOD ORDERABLES Fin al Result ANA [address] [facility] [address] * ECG 12 lead (08/20/2024 5:14 AM CDT) Ventricular Rate EKG/Min 86 BPM [facility] Atrial Rate 86 BPM [facility] [place]-Interval (MSEC) 180 ms [facility] QRS-Interval (MSEC) 64 ms [facility] QT-Interval (MSEC) 346 ms [facility] QTc 414 ms [facility] P Morrill 59 degrees [facility] R [place] -45 degrees [facility] T [place]rill -10 degrees [facility] Diagnosis Sinus rhythm with Premature atrial complexes [...] M.D. ([id number]) on 08/21/2024 7:45:03 AM [facility] 08/20/2024 5:14 AM CDT 08/21/2024 7:45 AM CDT us Jesenia Capone MD ECG ORDERABLES Final Re sult [facility] * eGFR (08/20/2024 4:59 AM CDT) Pathologist [facility] eGFR 62 >=60 mL/min/1. 73 m2 Comment: [...] was last reviewed 2021. Testing performed by: [address] [address] Blood 08/20/2024 4:59 AM CDT 08/20/2024 5:03 AM CDT us Jesenia Capone MD LAB BLOOD ORDERABLES Fin al Result ANA [address] [facility] [place] [address] * (ABNORMAL) Differential, auto (08/20/2024 4:59 AM CDT) Neutrophil abs 18.61(H) 1.50 - 6.50 K/cumm Comment:Testing performed by : [address] [address] Imm gran abs 0.46(H) 0.00 - 0.10 K/cumm ANA Comment:Testing performed by : [address] [address] Lymphocyte abs 1.55 0.80 - 3.30 K/cumm ANA Comment:Testing performed by : [address] [address] Monocyte abs 1.90(H) 0.20 - 0.80 K/cumm ANA Comment:Testing performed by : [address] [address] Eosinophil abs 0.07 0.00 - 0.50 K/cumm ANA Comment:Testing performed by : [address] [address] Basophil abs 0.11(H) 0.00 - 0.10 K/cumm ANA Comment:Testing performed by : [address] [address] Neutrophil pct 82.0 % ANA Comment: Interpretive Data Percent cell count reference ranges are not reported, since discordance with absolute values may lead to misinterpretation of CBC data. Current Interpretive Data was last revised on 2017. Testing performed by: [address] [address] Imm gran pct 2.0 % [facility] Comment: Interpretive Data Percent cell count reference ranges are not reported, since discordance with absolute values may lead to misinterpretation of CBC data. Current Interpretive Data was last revised on 2017. Testing performed by: [address] [address] Lymphocyte pct 6.8 % [facility] Comment: Interpretive Data Percent cell count reference ranges are not reported, since discordance with absolute values may lead to misinterpretation of CBC data. Current Interpretive Data was last revised on 2017. Testing performed by: [address] [address] Monocyte pct 8.4 % [facility] Comment: Interpretive Data Percent cell count reference ranges are not reported, since discordance with absolute values may lead to misinterpretation of CBC data. Current Interpretive Data was last revised on 2017. Testing performed by: [address] [address] Eosinophil pct 0.3 % [facility] Comment: Interpretive Data Percent cell count reference ranges are not reported, since discordance with absolute values may lead to misinterpretation of CBC data. Current Interpretive Data was last revised on 2017. Testing performed by: [address] [address] Basophil pct 0.5 % [facility] Comment: Interpretive Data Percent cell count reference ranges are not reported, since discordance with absolute values may lead to misinterpretation of CBC data. Current Interpretive Data was last revised on 2017. Testing performed by: [address] [address] Blood 08/20/2024 4:59 AM CDT 08/20/2024 5:03 AM CDT us Jesenia Capone MD LAB BLOOD ORDERABLES Fin al Result ANA [address] [facility] Department [place] [address] * (ABNORMAL) CBC with auto differential (08/20/2024 4:59 AM CDT) [facility] WBC 22.70(H) 3.80 - 9.90 K/cumm Comment:Testing performed by : [address] [address] Hgb 12.3 11.9 - 15.5 g/dL ANA Comment:Testing performed by : [address], [address] Hct 36.9 35.6 - 45.5 % ANA Comment:Testing performed by : [address] [address] Plt 626(H) 150 - 400 K/cumm ANA Comment:Testing performed by : [address] [address] MPV 8.6(L) 9.1 - 12.3 fL ANA Comment:Testing performed by : [address], [address] RBC 4.01 3.90 - 5.20 M/cumm ANA Comment:Testing performed by : [address] [address] MCV 92.0 81.3 - 96.4 fL ANA Comment:Testing performed by : [address] [address] MCH 30.7 27.1 - 33.3 pg ANA Comment:Testing performed by : [address] [address] MCHC 33.3 32.3 - 35.7 g/dL ANA Comment:Testing performed by : [address], [address] RDW CV 14.7 11.1 - 14.9 % ANA Comment:Testing performed by : [address] [address] RDW SD 48.8(H) 35.7 - 48.1 fL ANA Comment:Testing performed by : [address] [place]., [address] NRBC abs 0.00 0.00 - 0.01 K/cumm ANA Comment:Testing performed by : [address] [address] Blood 08/20/2024 4:59 AM CDT 08/20/2024 5:03 AM CDT Jesenia Capone MD LAB BLOOD ORDERABLES Fin al Result Performing Organization Address [facility] Co de Phone Number [address] [place] [employer] [address] * Magnesium (08/20/2024 4:59 AM CDT) [facility] Magnesium 1.7 1.4 - 2.5 mg/dL Comment:Testing performed by : [address] [address] Blood 08/20/2024 4:59 AM CDT 08/20/2024 5:03 AM CDT Jesenia Capone MD LAB BLOOD ORDERABLES Fin al Result Performing Organization Address [facility] de Phone Number [address] [address] * (ABNORMAL) Comprehensive metabolic panel (08/20/2024 4:59 AM CDT) [facility] Sodium 133(L) 135 - 145 mmol/L Comment:Testing performed by : [address] [address] Potassium, pl 3.8 3.3 - 4.9 mmol/L ANA Comment:Testing performed by : [address] [address] Chloride 95(L) 97 - 110 mmol/L ANA Comment:Testing performed by : [address] [address] CO2 21(L) 22 - 32 mmol/L ANA Comment:Testing performed by : [address] [address] Anion gap 17(H) 2 - 15 mmol/L ANA Comment:Testing performed by : [address] [address] BUN 20 6 - 25 mg/dL ANA Comment:Testing performed by : [address], [place]., [address] Creatinine 0.90 0.60 - 1.10 mg/dL ANA Comment:Testing performed by : [address] [address] Glucose 141 70 - 199 mg/dL ANA [...] was last revised 2022. Testing performed by: [address] [address] Calcium 8.6 8.5 - 10.3 mg/dL ANA Comment:Testing performed by : [address] [address] Bilirubin, total 0.6 0.1 - 1.2 mg/dL ANA Comment:Testing performed by : [address] [address] Protein, pl 7.1 6.5 - 8.5 g/dL ANA Comment:Testing performed by : [address] [address] Albumin 3.5 3.5 - 5.0 g/dL ANA Comment:Testing performed by : [address] [address] Alk phos 118 40 - 130 Units/L ANA Comment:Testing performed by : [address] [address] ALT 11 7 - 45 Units/L ANA SPARROW Comment:Testing performed by : [address] [address] AST 24 10 - 45 Units/L ANA Comment:Testing performed by : [facility], [address] [place] [address]., [address] Blood 08/20/2024 4:59 AM CDT 08/20/2024 5:03 AM CDT us Jesenia Capone MD LAB BLOOD ORDERABLES Fin al Result SELVINDAVID [address] [facility] Department [place] [address] * eGFR (07/28/2024 6:48 AM CDT) eGFR [...] was last reviewed 2021. Testing performed by: [address] [address] Blood 07/28/2024 6:48 AM CDT 07/28/2024 6:53 AM CDT us Savannah Hernadez MD LAB BLOOD ORDERABLES Final Result ANA [address] [facility] Department [place] [address] * (ABNORMAL) Differential, auto (07/28/2024 6:48 AM CDT) Neutrophil abs 8.15(H) 1.50 - 6.50 K/cumm Comment:Testing performed by : [address] [address] Imm gran abs 0.08 0.00 - 0.10 K/cumm ANA Comment:Testing performed by : [address] [address] Lymphocyte abs 2.27 0.80 - 3.30 K/cumm ANA Comment:Testing performed by : [address] [address] Monocyte abs 1.18(H) 0.20 - 0.80 K/cumm ANA Comment:Testing performed by : [address] [address] Eosinophil abs 0.34 0.00 - 0.50 K/cumm ANA Comment:Testing performed by : [address] [address] Basophil abs 0.07 0.00 - 0.10 K/cumm ANA Comment:Testing performed by : [address] [address] Neutrophil pct 67.3 % ANA Comment: Interpretive Data Percent cell count reference ranges are not reported, since discordance with absolute values may lead to misinterpretation of CBC data. Current Interpretive Data was last revised on 2017. Testing performed by: [address] [address] Imm gran pct 0.7 % ANA Comment: Interpretive Data Percent cell count reference ranges are not reported, since discordance with absolute values may lead to misinterpretation of CBC data. Current Interpretive Data was last revised on 2017. Testing performed by: [address] [address] Lymphocyte pct 18.8 % ANA Comment: Interpretive Data Percent cell count reference ranges are not reported, since discordance with absolute values may lead to misinterpretation of CBC data. Current Interpretive Data was last revised on 2017. Testing performed by: [address] [address] Monocyte pct 9.8 % ANA Comment: Interpretive Data Percent cell count reference ranges are not reported, since discordance with absolute values may lead to misinterpretation of CBC data. Current Interpretive Data was last revised on 2017. Testing performed by: [address] [address] Eosinophil pct 2.8 % ANA Comment: Interpretive Data Percent cell count reference ranges are not reported, since discordance with absolute values may lead to misinterpretation of CBC data. Current Interpretive Data was last revised on 2017. Testing performed by: [address] [address] Basophil pct 0.6 % ANA Comment: Interpretive Data Percent cell count reference ranges are not reported, since discordance with absolute values may lead to misinterpretation of CBC data. Current Interpretive Data was last revised on 2017. Testing performed by: [address] [address] Blood 07/28/2024 6:48 AM CDT 07/28/2024 6:53 AM CDT Savannah Hernadez MD LAB BLOOD ORDERABLES Final Result ANA [address] [facility] Department [place] [address] * (ABNORMAL) CBC with auto differential (07/28/2024 6:48 AM CDT) WBC 12.09(H) 3.80 - 9.90 K/cumm Comment:Testing performed by : [address] [address] Hgb 11.2(L) 11.9 - 15.5 g/dL ANA Comment:Testing performed by : [address] [address] Hct 34.4(L) 35.6 - 45.5 % ANA Comment:Testing performed by : [address] [address] Plt 573(H) 150 - 400 K/cumm ANA Comment:Testing performed by : [address] [address] MPV 8.3(L) 9.1 - 12.3 fL ANA Comment:Testing performed by : [address], [address] RBC 3.54(L) 3.90 - 5.20 M/cumm ANA Comment:Testing performed by : [address] [address] MCV 97.2(H) 81.3 - 96.4 fL ANA Comment:Testing performed by : [address] [address] MCH 31.6 27.1 - 33.3 pg ANA Comment:Testing performed by : [address], [address] MCHC 32.6 32.3 - 35.7 g/dL ANA Comment:Testing performed by : [address], [address] RDW CV 12.9 11.1 - 14.9 % ANA Comment:Testing performed by : [address], [address] RDW SD 46.0 35.7 - 48.1 fL ANA Comment:Testing performed by : [address], [address] NRBC abs 0.00 0.00 - 0.01 K/cumm ANA Comment:Testing performed by : [address] [address] Blood 07/28/2024 6:48 AM CDT 07/28/2024 6:53 AM CDT us Savannah Hernadez MD LAB BLOOD ORDERABLES Final Result ANA [facility] [facility] Department [place] [address] * Basic metabolic panel (07/28/2024 6:48 AM CDT) Sodium 140 135 - 145 mmol/L Comment:Testing performed by : [address] [address] Potassium, pl 3.9 3.3 - 4.9 mmol/L ANA Comment:Testing performed by : [address] [address] Chloride 107 97 - 110 mmol/L ANA Comment:Testing performed by : [address] [address] CO2 22 22 - 32 mmol/L ANA Comment:Testing performed by : [address] [address] Anion gap 11 2 - 15 mmol/L ANA Comment:Testing performed by : [address] [address] BUN 17 6 - 25 mg/dL ANA Comment:Testing performed by : [address] [address] Creatinine 0.79 0.60 - 1.10 mg/dL ANA Comment:Testing performed by : [address] [address] Glucose 103 70 - 199 mg/dL ANA [...] was last revised 2022. Testing performed by: [facility], [address] [place] [address]., [address] Calcium 8.8 8.5 - 10.3 mg/dL ANA SPARROW Comment:Testing performed by : [facility], [address] [place] [address]., [address] Blood 07/28/2024 6:48 AM CDT 07/28/2024 6:53 AM CDT Savannah Hernadez MD LAB BLOOD ORDERABLES Final Result ANA ANDREWS [address] [facility] Department [place] [address] * CT Head WO Contrast (07/25/2024 3:32 [...] Aleksey Ca D.O. AP: AP Report ID: [id number] Reading Location: [id number] Procedure Note Aleksey Ca, DO - 07/25/2024 [...] Aleksey Ca D.O. AP: AP Report ID: [id number] Reading Location: [id number] us Nilupa Sewwandi Gaspe Satya LIN IMG CT [place] OCEDURES Final Result * Dexa Axial Skeleton [...] Christina Pavon M.D. TB: TB Report ID: [id number] Reading Location: [id number] [EOD] Narrative 07/25/2017 4:15 PM CDT EXAM DESCRIPTION: Bone Density Hip/Spine (STD) COMPLETED DATE/TIME: 07/25/2017 3:45 pm REASON FOR STUDY: 81 y/o year old F with given history of screening. Shipping Room Helper/Model: Hologic Horizon A (S/N [id number]) CLINICAL INFORMATION: Current height: 60 inches Maximum [...] old F with given history of screening. Shipping Room Helper/Model: Hologic Horizon A (S/N [id number]) CLINICAL INFORMATION: Current height: 60 inches Maximum [...] Christina Pavon M.D. TB: TB Report ID: [id number] Reading Location: [place] [address] [EOD] TANNER Giron Jr. 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
--- OUTSIDE RECORDS SUMMARY | 2024-10-24 23:08 | XMS_ITS | Encounter Summary ---
Author Organization [facility] Facility Care Team Providers Care Buckle Stringer Name Role Phone TANNER Gaona Jr., Robert James Primary Care Provide r Beatrice Gardner RN Unavailable Mandy Mancia MD Unavailable [phone] Paulino Hernandez MA Unavailable Shannan Cadet LPN Unavailable Stephania Aguilar RN Unavailable Washington Lopez MD Unavailable [phone] Audi Garcia MD Unavailable TANNER Gaona Jr., Robert James Primary Care Provide r Referral, Self Primary Care Provider Unavailabl e TANNER Gaona Jr., Robert James Primary Care Provide r No, Physician Primary Care Provider Unknown, Notinfile Primary Care Provider Unavail able Encounter Details Date Type Department Care Team (Latest Contact Info) Description 01/25/2017 Orders Only [facility] CLINCONV Provider, MD Kvng [address] [place] [address] Social History Tobacco Use Types Packs/Day [...] Procedure Name Priority Date/Time Associated Diagnosis Comments COLONOSCOPY - SCAN 01/25/2017 12 :00 AM CDT documented in this encounter Results * COLONOSCOPY - SCAN (01/25/2017 12:00 AM CDT) Narrative 01/25/2017 12:00 AM CDT Ordered by an unspecified provider. 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 difficile suspected 08/20/2024 08/20/202408/21 7:46 AM CDT documented as of this encounter Care Teams Buckle Stringer Relationship Specialty Start Date End Date Chon Gaona Jr., PA PCP - General Physician Telegraph Service Rater 08/28/18 06/03/24 Chon Gaona Jr., PA [address] [place] [address] PCP - General Family Medicine 06/08/24 06/09/24 Referral, Self PCP - General 06/12/24 06/21/24 Chon Gaona Jr., PA [address] [place] [address] PCP - General Family Medicine 06/22/24 06/22/24 No, Physician PCP - General 07/13/24 08/04/24 Unknown, Notinfile PCP - General 08/05/24 10/13/24 Beatrice Gardner, RN Razor Sharpener 09/01/18 09/01/18 Mandy Mancia MD [address] [place] [address] Consulting Physician Family Medicine 09/15/18 Paulino Hernandez, FAM [address] [place] [address] [address] [place] [address] ACO Care Convention Worker 09/25/22 09/26/22 Shannan Cadet LPN [address] [place] [address] [address] [place] [address] Razor Sharpener 03/28/23 03/28/23 Stephania Aguilar RN [address] [place] [address] [address] [place] [address] Razor Sharpener 02/10/24 03/06/24 Washington Lopez MD [address] [facility] [address] [place] [address] Consulting Physician Neurology 02/18/24 Audi Garcia MD [address] [facility] [address] [place] [address] Consulting Physician Gastroenterology 02/18/24 documented as of this encounter
--- OUTSIDE RECORDS SUMMARY | 2024-10-24 23:08 | XMS_ITS | Encounter Summary ---
Author Organization [facility] Address [address] [place] [address] Care Team Providers Care Operator Maintainer Name Role Phone Chon Gaona Primary Care Provider [phone] Encounter Details Date Type Department Care Team (Late st Contact Info) Description 08/29/2018 Hospital Follow-up Call [facility] Telemetry Unit [address] [place], [place] [id number] Rosetta Brown Social History Tobacco Use Types Packs/Day Years Used Date Smoking Tobacco: Never Smokeless Tobacco: Never Alcohol Use Standard Drinks/Week Comments No 0 (1 standard drink = 0.6 oz pur e alcohol) AUDIT-C Answer Date Recorded Frequency of Alcohol Consumption Never 08/02/2018 Average Number of Drinks Not on file 019 Frequency of Binge Drinking Not on file 06/2018 Comments No Sex and Gender Information Value Date Recorded Sex Assigned at Female 09/03/2024 3:54 PM CDT Legal Sex Female 7:00 PM CDT Gender Identity Female 09/03/2024 3:54 PM CDT Sexual Orientation Not on file documented as of this encounter Functional Status * RETIRED Are you deaf or do you have serious difficulty hearing Answer Date of Assessment Author Status No 08/28/2018 3:55 PM CDT Activ e * RETIRED Are you blind or do you have serious difficulty seeing, even when wearing glasses? Answer Date of Assessment Author Status No 08/28/2018 3:55 PM CDT Activ e * Do you have serious difficulty walking or climbing stairs? Answer Date of Assessment Author Status No 08/28/2018 3:55 PM CDT Martha Lou RN Active * Do you have difficulty dressing or bathing? Answer Date of Assessment Author Status No 08/28/2018 3:55 PM CDT Martha Lou RN Active * Because of a physical, mental, or emotional condition, do you have difficulty doing errands alone such as visiting a doctor's office or shopping? Answer Date of Assessment Author Status No 08/28/2018 3:55 PM NATHANT Martha Lou RN Active documented as of this encounter Mental Status * Because of a physical, mental, or emotional condition, do you have serious difficulty concentrating, remembering, or making decisions? 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 Source: [facility]. 07/23/2024 ESBL - Extended Spectrum Bet a-lactamase Comment:09/02/24 +ESBL Urine 09/02/2024 09/02/2024 documented as of this encounter Care Teams Operator Maintainer Relationship Specialty Start Date End Date Chon Gaona PA [address] [place] [address] PCP - General 06/23/15 documented as of this encounter
[2024-10-25 02:27] VITALS: BP 99/69; PULSE 83; RESP 17; O2SAT 96
--- NOTE | 2024-10-25 02:28 | ED.FALL ---
HPI - Fall General Chief Complaint: Fall <Rita Gates MD - Last Filed: 10/25/24 07:19> Stated Complaint: Fall <Rita Gates MD - Last Filed: 10/25/24 07:19> Time Seen by Provider: 10/24/24 22:29 <Rita Gates MD - Last Filed: 10/25/24 07:19> History of Present Illness HPI Narrative: Patient presents after she actually rolled out of her bed, she states she did not realize her floor was concrete. She reports some pain to her low back. Denies any abdominal pain. <Rita Gates MD - Last Filed: 10/25/24 07:19> Related Data Allergies/Adverse Reactions: Allergies Allergy/AdvReac Type Severity Reaction Status Date / Time levofloxacin Allergy Hives Verified 01/19/24 07:04 Sulfa (Sulfonamide Allergy Hives Verified 01/19/24 07:04 Antibiotics) gabapentin AdvReac Severe Hallucinati Verified 10/24/24 22:37 ng Opioids - Morphine Analogues AdvReac Severe Agitated Verified 10/25/24 08:58 diazepam (From Valium) AdvReac Intermediate Agitated Verified 10/25/24 08:59 ibuprofen AdvReac Mild Gastrointestinal Verified 10/24/24 22:36 Upset baclofen AdvReac Hallucinati Verified 01/19/24 07:04 ng <Rita Gates MD - Last Filed: 10/25/24 07:19> Review of Systems Review of Systems: All systems reviewed & are unremarkable except as noted in HPI and below <Rita Gates MD - Last Filed: 10/25/24 07:19> PMFSH Social History Social History: Social History Smoking status: Never smoker <Rita Gates MD - Last Filed: 10/25/24 07:19> Exam Narrative: EXAMINATION OF ORGAN SYSTEMS/BODY AREAS: Constitutional: Vital signs per nursing GENERAL:[No acute distress, non-toxic appearing.] HEAD: Normal with no signs of head trauma. EYES: EOMI, conjunctiva normal ENT: Hearing grossly intact LUNGS: Nonlabored breathing. HEART: [Regular rate and rhythm] ABD: [Soft], [nontender to palpation]; stoma pink EXT: Normal range of motion; tender to tailbone SKIN: [No rashes or lesions.] NEURO: [Alert. No gross focal sensory or strength deficits.] PSYCH: Normal affect <Rita Gates MD - Last Filed: 10/25/24 07:19> Course Course Emergency Course: Patient care was signed out to me by the overnight physician. CT scan was pending. CT scan was read by stat read as colitis but our radiologist was concerned for active extravasation. A small amount bloody output into her ostomy. Patient's hemoglobins have been stable and patient has had no further bloody ostomy output. Patient will be treated for colitis. Patient also had CT scans pelvis, lumbar spine, cervical spine head and these were negative for acute fracture or intracranial abnormality. Patient was started on Augmentin the emergency department for suspected colitis. Patient was encouraged of close follow-up with her primary care physician. Prior to discharge patient had no bloody output through the ostomy and patient was well-appearing. Impressions Abdomen/Pelvis CT 10/25/24 07:14 IMPRESSION: Findings consistent with active extravasation supplying the stoma presumed to originate within a branch of the left gonadal vein. Scattered mural thickening and retained fecal contents is also noted. . Head CT 10/25/24 09:18 Impression: No acute intracranial hemorrhage or suspicious mass effect. Cervical Spine CT 10/25/24 09:44 Impression: Severe degenerative disease, as detailed above, without acute displaced fracture. Lumbar Spine CT 10/25/24 10:41 Impression: Degenerative disease with altered alignment, without acute compression fracture, as detailed above. Pelvis X-Ray 10/25/24 10:56 IMPRESSION: Increased attenuation within the stoma consistent with acute blood products as the plain film evaluation of the pelvis was performed hours before the contrast enhanced CT. Degenerative disease, without acute fracture or dislocation, as detailed above. <Al Serna MD - Last Filed: 10/25/24 17:04> Vital Signs Vital signs: Vital Signs Pulse Rate 70 10/24/24 22:22 Respiratory Rate 16 10/24/24 22:22 Blood Pressure 117/79 10/24/24 22:22 Pulse Oximetry 99 10/24/24 22:22 Temperature 97.8 F 10/25/24 11:43 Pulse Rate 80 10/25/24 11:43 Respiratory Rate 16 10/25/24 11:43 Blood Pressure 104/68 10/25/24 11:43 Pulse Oximetry 100 10/25/24 11:43 <Rita Gates MD - Last Filed: 10/25/24 07:19> Vital Signs Pulse Rate 70 10/24/24 22:22 Respiratory Rate 16 10/24/24 22:22 Blood Pressure 117/79 10/24/24 22:22 Pulse Oximetry 99 10/24/24 22:22 Temperature 97.8 F 10/25/24 11:43 Pulse Rate 80 10/25/24 11:43 Respiratory Rate 16 10/25/24 11:43 Blood Pressure 104/68 10/25/24 11:43 Pulse Oximetry 100 10/25/24 11:43 <Al Serna MD - Last Filed: 10/25/24 17:04> MDM - Fall MDM Narrative Medical decision making narrative: Patient presents here after unwitnessed fall out of bed, she reports some low back pain; she has no tenderness whatsoever on exam other than some to her low back. Her stoma here does appear pink, no drainage visualized. I did obtain imaging including CT head, C-spine, L-spine, pelvis x-ray, stat read interpretation of CT unremarkable, x-ray pelvis on my independent interpretation does not show any obvious fracture. Patient was being discharged when nursing did astutely notice there is now some new bloody drainage coming from her stoma in the colostomy bag. RN did call group home and per nursing, this had been noticed earlier in the morning. Patient denying any complaints, no abdominal pain. At this time to be safe I did obtain CT abdomen pelvis and labs. Signed out to oncoming physician pending CT. <Rita Gates MD - Last Filed: 10/25/24 07:19> Lab Data Result diagrams: 10/25/24 11:15 10/25/24 04:38 <Rita Gates MD - Last Filed: 10/25/24 07:19> Labs: Lab Results 10/25/24 10/25/24 10/25/24 Range/Units 03:35 04:38 08:32 WBC 12.2 H (4.5-10.0) K/mm3 RBC 3.26 L (4.2-5.4) M/mm3 Hgb 10.2 L 10.9 L (12.0-15.0) g/dL Hct 30.5 L 32.7 L (37.0-47.0) % MCV 93.6 (80-100) fl MCH 31.3 (26-34) pg MCHC 33.4 (32-36) g/dl RDW 14.9 H (11.5-14.5) % Plt Count 430 H (150-375) k/mm3 MPV 8.9 (7.4-10.4) fl Immature Gran % (Auto) 0.5 (0-0.5) % Neut % (Auto) 58.2 (45.5-73.1) % Lymph % (Auto) 18.1 L (18.3-44.2) % [place] % (Auto) 15.1 H (2.6-8.5) % Eos % (Auto) 7.3 H (0-4.4) % Baso % (Auto) 0.8 (0.2-1.2) % Lymph # (Auto) 2.21 (0.9-3.2) K/mm3 [place] # (Auto) 1.8 H (0.1-0.6) K/mm3 Eos # (Auto) 0.9 H (0-0.3) K/mm3 Baso # (Auto) 0.1 (0.0-0.1) K/mm3 Abs Immat Gran (auto) 0.06 H (0.00-0.031) K/mm3 Absolute Neuts (auto) 7.1 H (1.3-6.7) K/mm3 Absolute Nucleated RBC 0.000 (0.0-0.012) K/mm3 Nucleated RBC % 0.0 (0.0-0.2) % Sodium 136 L (137-145) mmol/L Potassium 3.8 (3.4-5.0) mmol/L Chloride 106 (98-107) mmol/L Carbon Dioxide 22 (22-30) mmol/L Anion Gap 8 (4-12) mmol/L BUN 19 H (7-17) mg/dL Creatinine 0.79 (0.7-1.0) mg/dL Estim Creat Clear Calc Not Reportable Estimated GFR > 60 (59 - ) Glucose 100 (65-110) mg/dL Calcium 9.0 (8.4-10.2) mg/dL Total Bilirubin 0.6 (0.2-1.3) mg/dL AST 40 H (14-36) U/L ALT 31 (6-35) U/L Alkaline Phosphatase 89 (38-126) U/L Total Protein 7.0 (6.3-8.2) g/dL Albumin 3.5 (3.5-5.1) g/dL Blood Type A Positive Antibody Screen Negative 10/25/24 Range/Units 11:15 WBC (4.5-10.0) K/mm3 RBC (4.2-5.4) M/mm3 Hgb 10.5 L (12.0-15.0) g/dL Hct 32.4 L (37.0-47.0) % MCV (80-100) fl MCH (26-34) pg MCHC (32-36) g/dl RDW (11.5-14.5) % Plt Count (150-375) k/mm3 MPV (7.4-10.4) fl Immature Gran % (Auto) (0-0.5) % Neut % (Auto) (45.5-73.1) % Lymph % (Auto) (18.3-44.2) % [place] % (Auto) (2.6-8.5) % Eos % (Auto) (0-4.4) % Baso % (Auto) (0.2-1.2) % Lymph # (Auto) (0.9-3.2) K/mm3 [place] # (Auto) (0.1-0.6) K/mm3 Eos # (Auto) (0-0.3) K/mm3 Baso # (Auto) (0.0-0.1) K/mm3 Abs Immat Gran (auto) (0.00-0.031) K/mm3 Absolute Neuts (auto) (1.3-6.7) K/mm3 Absolute Nucleated RBC (0.0-0.012) K/mm3 Nucleated RBC % (0.0-0.2) % Sodium (137-145) mmol/L Potassium (3.4-5.0) mmol/L Chloride (98-107) mmol/L Carbon Dioxide (22-30) mmol/L Anion Gap (4-12) mmol/L BUN (7-17) mg/dL Creatinine (0.7-1.0) mg/dL Estim Creat Clear Calc Estimated GFR (59 - ) Glucose (65-110) mg/dL Calcium (8.4-10.2) mg/dL Total Bilirubin (0.2-1.3) mg/dL AST (14-36) U/L ALT (6-35) U/L Alkaline Phosphatase (38-126) U/L Total Protein (6.3-8.2) g/dL Albumin (3.5-5.1) g/dL Blood Type Antibody Screen <Rita Gates MD - Last Filed: 10/25/24 07:19> Lab Results 10/25/24 10/25/24 10/25/24 Range/Units 03:35 04:38 08:32 WBC 12.2 H (4.5-10.0) K/mm3 RBC 3.26 L (4.2-5.4) M/mm3 Hgb 10.2 L 10.9 L (12.0-15.0) g/dL Hct 30.5 L 32.7 L (37.0-47.0) % MCV 93.6 (80-100) fl MCH 31.3 (26-34) pg MCHC 33.4 (32-36) g/dl RDW 14.9 H (11.5-14.5) % Plt Count 430 H (150-375) k/mm3 MPV 8.9 (7.4-10.4) fl Immature Gran % (Auto) 0.5 (0-0.5) % Neut % (Auto) 58.2 (45.5-73.1) % Lymph % (Auto) 18.1 L (18.3-44.2) % [place] % (Auto) 15.1 H (2.6-8.5) % Eos % (Auto) 7.3 H (0-4.4) % Baso % (Auto) 0.8 (0.2-1.2) % Lymph # (Auto) 2.21 (0.9-3.2) K/mm3 [place] # (Auto) 1.8 H (0.1-0.6) K/mm3 Eos # (Auto) 0.9 H (0-0.3) K/mm3 Baso # (Auto) 0.1 (0.0-0.1) K/mm3 Abs Immat Gran (auto) 0.06 H (0.00-0.031) K/mm3 Absolute Neuts (auto) 7.1 H (1.3-6.7) K/mm3 Absolute Nucleated RBC 0.000 (0.0-0.012) K/mm3 Nucleated RBC % 0.0 (0.0-0.2) % Sodium 136 L (137-145) mmol/L Potassium 3.8 (3.4-5.0) mmol/L Chloride 106 (98-107) mmol/L Carbon Dioxide 22 (22-30) mmol/L Anion Gap 8 (4-12) mmol/L BUN 19 H (7-17) mg/dL Creatinine 0.79 (0.7-1.0) mg/dL Estim Creat Clear Calc Not Reportable Estimated GFR > 60 (59 - ) Glucose 100 (65-110) mg/dL Calcium 9.0 (8.4-10.2) mg/dL Total Bilirubin 0.6 (0.2-1.3) mg/dL AST 40 H (14-36) U/L ALT 31 (6-35) U/L Alkaline Phosphatase 89 (38-126) U/L Total Protein 7.0 (6.3-8.2) g/dL Albumin 3.5 (3.5-5.1) g/dL Blood Type A Positive Antibody Screen Negative 10/25/24 Range/Units 11:15 WBC (4.5-10.0) K/mm3 RBC (4.2-5.4) M/mm3 Hgb 10.5 L (12.0-15.0) g/dL Hct 32.4 L (37.0-47.0) % MCV (80-100) fl MCH (26-34) pg MCHC (32-36) g/dl RDW (11.5-14.5) % Plt Count (150-375) k/mm3 MPV (7.4-10.4) fl Immature Gran % (Auto) (0-0.5) % Neut % (Auto) (45.5-73.1) % Lymph % (Auto) (18.3-44.2) % [place] % (Auto) (2.6-8.5) % Eos % (Auto) (0-4.4) % Baso % (Auto) (0.2-1.2) % Lymph # (Auto) (0.9-3.2) K/mm3 [place] # (Auto) (0.1-0.6) K/mm3 Eos # (Auto) (0-0.3) K/mm3 Baso # (Auto) (0.0-0.1) K/mm3 Abs Immat Gran (auto) (0.00-0.031) K/mm3 Absolute Neuts (auto) (1.3-6.7) K/mm3 Absolute Nucleated RBC (0.0-0.012) K/mm3 Nucleated RBC % (0.0-0.2) % Sodium (137-145) mmol/L Potassium (3.4-5.0) mmol/L Chloride (98-107) mmol/L Carbon Dioxide (22-30) mmol/L Anion Gap (4-12) mmol/L BUN (7-17) mg/dL Creatinine (0.7-1.0) mg/dL Estim Creat Clear Calc Estimated GFR (59 - ) Glucose (65-110) mg/dL Calcium (8.4-10.2) mg/dL Total Bilirubin (0.2-1.3) mg/dL AST (14-36) U/L ALT (6-35) U/L Alkaline Phosphatase (38-126) U/L Total Protein (6.3-8.2) g/dL Albumin (3.5-5.1) g/dL Blood Type Antibody Screen <Al Serna MD - Last Filed: 10/25/24 17:04> Discharge Plan Discharge Clinical Impression: Fall, Colitis <Rita Gates MD - Last Filed: 10/25/24 07:19> Patient Disposition: [facility] <Rita Gates MD - Last Filed: 10/25/24 07:19> Condition: Stable <Rita Gates MD - Last Filed: 10/25/24 07:19> Instructions: Fall Prevention for Older Adults (ED), Low Back Strain (ED) <Rita Gates MD - Last Filed: 10/25/24 07:19> Additional Instructions: Please follow up with your doctor; you can always return for any further issues. Antibiotic as directed until completed. Have close follow-up with your surgeon. <Rita Gates MD - Last Filed: 10/25/24 07:19> Patient Language: Scottish <Rita Gates MD - Last Filed: 10/25/24 07:19> Prescriptions: New acetaminophen [Tylenol Extra Strength] 500 mg tablet 1,000 mg PO Q6H PRN (Reason: pain) Qty: 50 0RF lidocaine 5 % adhesive patch,medicated 1 patch topical DAILY Qty: 15 0RF Rx Instructions: leave on most painful area for up to 12 hrs amoxicillin-pot clavulanate 875-125 mg tablet 1 tablet PO Q12H 7 Days Qty: 14 0RF No Action pregabalin [Lyrica] 50 mg capsule 50 mg PO BID Qty: 60 2RF hydrocodone-acetaminophen 10-325 mg tablet 1 tablet PO QID PRN (Reason: pain) Qty: 120 0RF <Rita Gates MD - Last Filed: 10/25/24 07:19> Follow-up/Referrals: Diane Benedict MD [Primary Care Provider] - 2 Days <Rita Gates MD - Last Filed: 10/25/24 07:19>
[2024-10-25 03:52] LABS: Hematocrit 30.5 % (37.0-47.0); Hemoglobin 10.2 g/dL (12.0-15.0); Immature Granulocyte Percent A 0.5 % (0-0.5); Lymphocytes Absolute Auto 2.21 K/mm3 (0.9-3.2); Mean Corpuscular HGB Conc 33.4 g/dl (32-36); Mean Corpuscular Hemoglobin 31.3 pg (26-34); Mean Corpuscular Volume 93.6 fl (80-100); Nucleated Red Blood Cells Absolute Auto 0.000 K/mm3 (0.0-0.012); Nucleated Red Blood Cells Perc 0.0 % (0.0-0.2); Platelet Count Result 430 k/mm3 (150-375); Red Blood Count 3.26 M/mm3 (4.2-5.4); White Blood Count 12.2 K/mm3 (4.5-10.0)
[2024-10-25 05:06] LABS: Alanine Aminotransferase 31 U/L (6-35); Albumin Level 3.5 g/dL (3.5-5.1); Alkaline Phosphatase 89 U/L (38-126); Anion Gap 8 mmol/L (4-12); Aspartate Amino Transferase 40 U/L (14-36); Bilirubin,Total 0.6 mg/dL (0.2-1.3); Blood Urea Nitrogen 19 mg/dL (7-17); Calcium 9.0 mg/dL (8.4-10.2); Carbon Dioxide 22 mmol/L (22-30); Chloride 106 mmol/L (98-107); Estimated Glomerular Filt Rate > 60; Glucose 100 mg/dL (65-110); Potassium 3.8 mmol/L (3.4-5.0); Sodium 136 mmol/L (137-145); Total Protein 7.0 g/dL (6.3-8.2)
[2024-10-25 07:30] VITALS: BP 108/64; PULSE 86; RESP 16; TEMP 36.6; O2SAT 100
[2024-10-25 08:40] LABS: Hematocrit 32.7 % (37.0-47.0); Hemoglobin 10.9 g/dL (12.0-15.0)
[2024-10-25] MEDS: LACTATED RINGERS 1,000 ML 999 ML IV CONT (08:52)
[2024-10-25 09:30] VITALS: BP 100/72; PULSE 90; RESP 16; TEMP 36.6; O2SAT 98
[2024-10-25 11:21] LABS: Hematocrit 32.4 % (37.0-47.0); Hemoglobin 10.5 g/dL (12.0-15.0)
[2024-10-25 11:30] VITALS: BP 108/62; PULSE 72; RESP 16; TEMP 36.4; O2SAT 98
[2024-10-25 11:43] VITALS: BP 104/68; PULSE 80; RESP 16; TEMP 36.6; O2SAT 100
== END 2024-10-25 13:39 ==
PROVIDERS: Emergency Medicine; Emergency Provider Emergency Medicine; PCP Family Medicine
DX: S39.92XA Unspecified injury of lower back, initial encounter (principal); K52.9 Noninfective gastroenteritis and colitis, unspecified; Z93.3 Colostomy status; W06.XXXA Fall from bed, initial encounter
CPT/HCPCS: 36415; 70450; 72125; 72131; 72170; 74177; 80053; 85014; 85018; 85025; 86850; 86900; 86901; 96360; 99284; A9270; J7120; Q9967